=== PATIENT | female | born 1950 | race Caucasian/White ===

== ENCOUNTER 2017-11-17 09:21 | Inpatient (IN) ==
--- NOTE | 2017-11-17 09:34 | Emergency Department Report ---
Neuro HPI - General Stated Complaint: drowsy,acting weird Time Seen by Provider: 11/17/17 09:33 Source: patient Mode of arrival: ambulatory Limitations: altered mental status - History of Present Illness HPI Narrative: Patient is a 67-year-old female presents emergency room for evaluation of confusion, difficulty waking. Patient went to bed normally last night, had difficulty waking this morning, and then appear to be confused did not know day or date. Patient was brought to the ER on arrival patient no she's in the [facility] emergency room, now states that she's been having intermittent chest pain none currently. On review of systems with nurse 2 minutes prior patient had denied any chest pain. Onset (ago): day(s) Time Estimated: Yes (bedtime last night) Timing confirmed by: spouse - Related Data Home Medications: Home Medications Medication Instructions Recorded Confirmed Meloxicam 7.5 mg PO BID #0 01/31/10 11/17/17 Simvastatin 20 mg PO DAILY #0 03/17/13 11/17/17 Aspirin [Aspirin EC] 81 mg PO DAILY 11/17/17 11/17/17 Baclofen [Lioresal] 10 mg PO DAILY PRN 11/17/17 11/17/17 Cetirizine HCl [Zyrtec] 10 mg PO DAILY 11/17/17 11/17/17 Lisinopril/Hctz 20/25 [Prinzide 1 tab PO DAILY 11/17/17 11/17/17 20/25] Trazodone [Desyrel] 50 mg PO HS 11/17/17 11/17/17 Allergies/Adverse Reactions: Allergies Allergy/AdvReac Type Severity Reaction Status Date / Time cortisone Allergy Mild RED Verified 11/17/17 09:38 neomycin Allergy Mild RED Verified 11/17/17 09:38 Sulfa (Sulfonamide Allergy Mild ITCH Verified 11/17/17 09:38 Antibiotics) Review of Systems Constitutional: Reports: weakness. Denies: fever, chills Eyes: Denies: eye pain, eye discharge ENT: Denies: throat pain, dental pain Cardiovascular: Reports: chest pain. Denies: palpitations, dyspnea on exertion Respiratory: Denies: cough, dyspnea, wheezes Gastrointestinal: Denies: abdominal pain, nausea, vomiting Genitourinary: Denies: urgency, dysuria Musculoskeletal: Denies: back pain Neurological: Denies: headache, weakness, numbness, paresthesias, confusion Endocrine: Denies: fatigue Hematological/Lymphatic: Denies: easy bleeding PFSH Patient Stated Medical History Cerebrovascular Accident Yes Hypertension Yes Chronic Obstructive Pulmonary Yes Disease (COPD) Hx Incontinence Yes Other Musculoskeletal Yes: takes muscle relaxer "to help me get up and down" Other Yes: pt poor historian, collecton incomplete Medical History Updates: Prior CVA - Social History Smoking status: Current every day smoker Substance use type: does not use Alcohol intake frequency: does not drink Physical Exam - Limitations Limitations: no limitations - General General appearance: alert, in no apparent distress - Head Head exam: normocephalic - ENT ENT exam: Present: normal oropharynx - Neck Neck exam: Present: full ROM - Chest Chest inspection: Present: symmetric chest wall rise. Absent: tenderness - Respiratory Respiratory exam: Present: normal lung sounds bilaterally, wheezes (left upper) . Absent: respiratory distress, accessory muscle use, prolonged expiratory phase, crackles - Cardiovascular Cardiovascular exam: Present: regular rate, normal rhythm, normal heart sounds - Abdominal Exam Abdominal exam: Present: soft, normal bowel sounds. Absent: distention, tenderness - Skin Skin exam: Present: warm, dry - Neurological Exam Neurological exam: Present: alert, other - Expanded Neurological Exam Speech: Present: fluid speech Cranial nerves: Normal: EOM function (II, III, IV, ), facial sensation (V), facial palsy (VII), gag reflex (IX), spinal accessory function (XI), tongue deviation (XII) Motor strength - LUE: 5/5 Motor strength - RUE: 5/5 Motor strength - LLE: 5/5 Motor strength - RLE: 5/5 Sensory exam upper extremity: Normal: light touch Sensory exam lower extremity: Normal: light touch DTR: 2+: biceps (L), biceps (R), patellar (L), patellar (R) Coma scale eye opening: spontaneous Coma scale motor response: obeys commands Coma scale verbal response: confused Coma scale total: 14 - Psychiatric Psychiatric exam: Present: normal affect, normal mood Course Vital Signs Temperature 98.1 F 11/17/17 09:35 Pulse Rate 62 11/17/17 09:35 Respiratory Rate 16 11/17/17 09:35 Blood Pressure 120/64 11/17/17 09:35 Pulse Oximetry 97 11/17/17 09:35 Temperature 98.1 F 11/17/17 09:35 Pulse Rate 57 L 11/17/17 10:45 Respiratory Rate 20 11/17/17 10:45 Blood Pressure 136/75 11/17/17 10:45 Pulse Oximetry 96 11/17/17 10:45 Neuro Symptoms/Deficit - Differential Diagnosis Likely: subarachnoid hemorrhage, peripheral neuropathy, cerebrovascular accident , transient cerebral ischemia - Medical Records Attestation: I reviewed the patient's medical records. - Lab Data Attestation: I reviewed the patient's lab results. Result diagrams: 11/17/17 10:17 11/17/17 10:17 Lab Results 11/17/17 11/17/17 11/17/17 Range/Units 10:17 10: 10:17 WBC 6.7 (4.5-11.0) T/MM3 RBC 4.84 (4.00-5.20) M/MM3 Hgb 15.8 (12-16) GM/DL Hct 45.4 (36-46) % MCV 93.8 (80-100) UM3 MCH 32.6 (26-34) UUG MCHC 34.8 (31-37) GM/DL RDW Std Deviation 42.5 (36.9-50.2) FL Plt Count 174 (130-400) T/MM3 MPV 11.0 (9.4-12.4) UM3 Immature Gran % (Auto) Not performed Neut % (Auto) 68.0 H (33-66) % Lymph % (Auto) 20.7 L (23-45) % [place] % (Auto) 9.8 H (0-9.0) % Eos % (Auto) 0.9 (0-4) % Baso % (Auto) 0.6 (0-2) % Neut # (Auto) 4.5 (1.8-7.7) T/MM3 Lymph # (Auto) 1.4 (1-4.8) T/MM3 [place] # (Auto) 0.7 (0-0.8) T/MM3 Eos # (Auto) 0.1 (0-0.5) T/MM3 Baso # (Auto) 0.0 (0-0.2) T/MM3 Abs Immat Gran (auto) Not performed Turbidity < 20 (0-20) Sodium 142 (134-144) MEQ/L Potassium 3.8 (3.6-5) MEQ/L Chloride 106 (98-107) MEQ/L Carbon Dioxide 28 (22-30) MEQ/L Anion Gap 8 (5-15) MEQ/L BUN 22.0 H (7-17) MG/DL Creatinine 0.8 (0.7-1.2) MG/DL GFR Calculation 72 BUN/Creatinine Ratio 28 H (6-26) RATIO Glucose 95 (65-110) MG/DL Calculated Osmolality 276 (261-280) MOSM/KG Calcium 9.5 (8.4-10.2) MG/DL Total Bilirubin 0.80 (0.20-1.30) MG/DL Icterus Index < 2 (0-7) AST 20 (14-36) U/L ALT 22 (9-52) U/L Alkaline Phosphatase 69 (38-126) U/L Ammonia < 9 L (9-33) UMOL/L Troponin I < 0.012 (0-0.12) ng/ml Total Protein 7.2 (6.3-8.2) G/DL Albumin 4.0 (3.5-5.0) G/DL Globulin 3.2 (2.4-3.6) G/DL Albumin/Globulin Ratio 1.3 (1.1-2.2) RATIO Specimen Hemolysis < 15 (0-25) Ur Collection Type Urine, void-cc/notcc Urine Color Yellow (YELLOW) Urine Clarity Clear Urine pH 5.5 (5.0-8.0) Ur Specific [place] >=1.030 H (1.015-1.025) Urine Protein Negative (NEGATIVE) Urine Glucose (UA) Negative (NEGATIVE) Urine Ketones Negative (NEGATIVE) Urine Occult Blood Negative (NEGATIVE) Urine Nitrate Negative (NEGATIVE) Urine Bilirubin Negative (NEGATIVE) Urine Urobilinogen 1.0 (NORMAL) EU/DL Ur Leukocyte Esterase Negative (NEGATIVE) Urinalysis Comment Microscopic not ind. - Radiology Data Attestation: I reviewed the patient's radiology results. Disposition Clinical Impression: Symptomatic bradycardia Altered mental status Qualifiers: Altered mental status type: unspecified Qualified Code(s): R41.82 - Altered mental status, unspecified Disposition: 02 To [place] [facility] [place]: Stable Prescriptions: No Action Simvastatin 20 mg PO DAILY #0 Baclofen [Lioresal] 10 mg PO DAILY PRN PRN Reason: Prn Orders Trazodone [Desyrel] 50 mg PO HS Aspirin [Aspirin EC] 81 mg PO DAILY Cetirizine HCl [Zyrtec] 10 mg PO DAILY Meloxicam 7.5 mg PO BID #0 Lisinopril/Hctz 20/25 [Prinzide 20/25] 1 tab PO DAILY Referrals: Júnior Solano MD [Family Provider] - Time of Disposition: 11:24 - Seen By: physician
--- OUTSIDE RECORDS SUMMARY | 2017-11-17 09:47 | External Medical Summary | Referral Summary ---
:1950 Author Organization [facility], [address] [place] [address] Care Team Providers Name Role Phone Júnior Solano Primary Care Physician Encounter VC Date(s): 02/21/16 - 02/21/16 [facility] [address] [place] [phone] Discharge Diagnosis: Benign essential hypertension Discharge Diagnosis: Hand eczema Discharge Diagnosis: Osteoarthritis Discharge Diagnosis: Hyperlipidemia Discharge Diagnosis: Status post CVA Discharge Disposition: 01-Home or Self Care Attending Physician: Júnior Solano MD Admitting Physician: Júnior Solano MD Vital Signs Most recent to oldest [Reference Range]: 1 Temperature Tympanic [36.6-38.1 degC] 36.7 degC (02/21/16 10:07 AM) Peripheral Pulse Rate [60-100 bpm] 68 bpm (02/21/16 10:07 AM) Respiratory Rate [14-20 br/min] 18 br/min (02/21/16 10:07 AM) Blood Pressure [90-140/60-90 mmHg] 108/64 mmHg (02/21/16 10:07 AM) Problem List Condition Effective Dates Status Health Status Informant Adenomatous colon polyp(Confirmed)1 Active Allergy(Confirmed) Active Allergic rhinitis(Confirmed) Active Asthma(Confirmed) Active Benign essential hypertension Active (disorder)(Confirmed) Benign neoplasm of colon Active (disorder)(Confirmed) Bronchitis(Confirmed) Active CVA (cerebral infarction)(Confirmed) Active Dysphagia(Confirmed) Active History of varicella(Confirmed) Active Hearing loss(Confirmed) Active Hematochezia(Confirmed)2001 Active Hypertension(Confirmed) Active Ear infection(Confirmed) Active Malaise and fatigue(Confirmed) Active Asthma without status asthmaticus Active (disorder)(Confirmed) Hyperlipidemia(Confirmed) Active Osteoarthritis(Confirmed) Active Overweight(Confirmed) Active Venous insufficiency(Confirmed) Active Pneumonia(Confirmed) Active Sinus infection(Confirmed) Active TIA (transient ischemic Active attack)(Confirmed) 1 colonoscopy, tubular adenoma, repeat in 5 years [id number] adenoma Allergies, Adverse Reactions, Alerts Substance Reaction Severity Status neomycin Active sulfa drugs Active sulfanilamide topical Itching Active Medications aspirin 325 mg oral tablet 1 tabs, Oral, Daily, # 90 tabs, 0 Refill(s) Start Date: 05/13/14 Status: Orderedchlorzoxazone 500 mg oral tablet See Instructions, TAKE ONE TABLET BY MOUTH ONCE DAILY AT BEDTIME NEEDED FOR PAIN, # 30 tabs, 2 Refill(s), eRx: [facility], TAKE ONE TABLET BY MOUTH ONCE DAILY AT BEDTIME NEEDED FOR PAIN Start Date: 12/14/15 Status: OrderedClaritin 10 mg oral tablet 1 tabs, Oral, Daily, as needed for allergy symptoms, # 90 tabs, 0 Refill(s) Start Date: 05/13/14 Status: OrderedEpiPen 2-Davi mg, IntraMuscular, Once, as needed for anaphylaxis, 0 Refill(s) Start Date: 05/13/14 Status: OrderedFlonase 50 mcg/inh nasal spray 1 sprays, Nasal, BID, Seasonal Allergy Symptoms, # 16 g, 0 Refill(s) Start Date: 05/13/14 Status: Orderedfluocinolone 0.01% topical oil 0 Refill(s) Start Date: 11/03/14 Status: OrderedFluvirin [id number] 0 Refill(s) Start Date: 11/03/14 Status: Orderedibuprofen 200 mg oral tablet 3 tabs, Oral, BID, as needed for arthritis, with food, 0 Refill(s) Start Date: 05/13/14 Status: Orderedlisinopril-hydrochlorothiazide 20 mg-25 mg oral tablet See Instructions, TAKE ONE TABLET BY MOUTH ONCE DAILY, # 30 tabs, 2 Refill(s), eRx: [facility], TAKE ONE TABLET BY MOUTH ONCE DAILY Start Date: 02/12/16 Status: Orderedmeloxicam 7.5 mg oral tablet See Instructions, TAKE ONE TABLET BY MOUTH TWICE DAILY, # 60 tabs, 2 Refill(s), eRx: [facility], TAKE ONE TABLET BY MOUTH TWICE DAILY Start Date: 02/12/16 Status: Orderedsimvastatin 20 mg oral tablet See Instructions, TAKE ONE TABLET BY MOUTH ONCE DAILY IN THE EVENING, # 90 tabs , 1 Refill(s), eRx: [facility], TAKE ONE TABLET BY MOUTH ONCE DAILY IN THE EVENING Start Date: 01/12/16 Status: OrderedtraZODone 50 mg oral tablet See Instructions, TAKE ONE TABLET BY MOUTH AT BEDTIME, # 30 tabs, 2 Refill(s), eRx: [facility], TAKE ONE TABLET BY MOUTH AT BEDTIME Start Date: 01/12/16 Status: Orderedtriamcinolone 0.5% topical cream 1 lyssa, Topical, BID, # 15 g, 0 Refill(s), Pharmacy: [facility] Start Date: 02/21/16 Status: Ordered Results No data available for this section Immunizations Vaccine Date Refusal Reason tetanus/diphth/pertuss (Tdap) adult/adol 01/24/11 influenza virus vaccine, inactivated 07/14/15 influenza virus vaccine, inactivated 08/08/14 influenza virus vaccine, inactivated 06/21/13 pneumococcal 13-valent conjugate vaccine 02/21/16 pneumococcal 23-polyvalent vaccine 06/21/13 zoster vaccine live 01/20/13 Procedures Procedure Date Related Diagnosis Body Site Colonoscope1 03/18/13 DEXA - Dual energy X-ray photon absorptiometry 02/02/13 Mammogram 02/02/13 Colonoscopy2 01/31/10 Colonoscopy3 08/16/02 Sigmoidoscopy4 07/30/02 Appendectomy 02/22/94 Hysterectomy 02/22/94 Adenoidectomy 1956 Tonsillectomy 1956 Dilation and curettage 1Revealed a single adenomatous colon polyp.no sign of cancer,diverticula or other abnormalities.2HX adenomatous colon [id number] -tubular adenoma Social History Social History Type Response Smoking Status Current every day smoker; Type: Cigarettes; Tobacco use per day : Pack Assessment and Plan Extracted from: Title: Office Visit Note Author: Júnior Solano MD Date: 02/21/16 Assessment/Plan 1.Benign essential hypertension Blood pressures well-controlled. Medications and treatments reviewed no changes are recommended. We did give Prevnar today. Recheck in 6 months. Call with problems or concerns. Ordered: pneumococcal 13-valent conjugate vaccine, 0.5 mL, IntraMuscular, Once, First Dose: 02/21/16 11:00:00 CDT, Stop Date: 02/21/16 11:00:00 CDT, Form: Injection Office Visit Level 4 Est 67975 3.Hyperlipidemia Chronic stable current medications reviewed no changes in treatment plan recommended. Recent laboratory studies reviewed overall lipid status is stable. Ordered: Office Visit Level 4 Est 06452 4.Osteoarthritis Chronic stable no change in current treatment recommended. Ordered: Office Visit Level 4 Est 94281 5.Status post CVA Chronic stable no signs of TIA or other similar symptoms. Call with problems or concerns. Recheck in 6 months. Ordered: Office Visit Level 4 Est 92460 Orders: triamcinolone topical, 1 lyssa, Topical, BID, # 15 g, 0 Refill(s), Pharmacy: [id number] Eczema She has a spot on her side that looks inflamed and irritatedI've recommended some triamcinolone cream twice a day untilclear if not improving she'll let us now.
--- OUTSIDE RECORDS SUMMARY | 2017-11-17 09:47 | External Medical Summary | Referral Summary ---
:1950 Author Organization [facility], [address] [place] [address] Care Team Providers Name Role Phone Júnior Solano Primary Care Physician Encounter VC Date(s): 02/13/15 - 02/13/15 [facility] [address] [place] [phone] [place] Discharge Diagnosis: Benign essential hypertension Discharge Diagnosis: Allergic rhinitis Discharge Diagnosis: Asthma without status asthmaticus Discharge Diagnosis: Osteoarthritis Discharge Disposition: 01-Home or Self Care Attending Physician: Júnior Solano MD Admitting Physician: Júnior Solano MD Vital Signs Most recent to oldest [Reference Range]: 1 Temperature Tympanic [36.6-38.1 degC] 36.1 degC *LOW* (02/13/15 10:07 AM) Peripheral Pulse Rate [60-100 bpm] 80 bpm (02/13/15 10:07 AM) Respiratory Rate [14-20 br/min] 18 br/min (02/13/15 10:07 AM) Blood Pressure [90-140/60-90 mmHg] 102/68 mmHg (02/13/15 10:07 AM) Problem List Condition Effective Dates Status Health Status Informant Adenomatous colon polyp(Confirmed)1 Active Allergy(Confirmed) Active Allergic rhinitis(Confirmed) Active Asthma(Confirmed) Active Asthma without status asthmaticus Active (disorder)(Confirmed) Benign essential hypertension Active (disorder)(Confirmed) Benign neoplasm of colon Active (disorder)(Confirmed) Bronchitis(Confirmed) Active CVA (cerebral infarction)(Confirmed) Active Dysphagia(Confirmed) Active History of varicella(Confirmed) Active Hearing loss(Confirmed) Active Hematochezia(Confirmed)2 2001 Active Hyperlipidemia(Confirmed) Active Hypertension(Confirmed) Active Ear infection(Confirmed) Active Malaise and fatigue(Confirmed) Active Osteoarthritis(Confirmed) Active Overweight(Confirmed) Active Venous insufficiency(Confirmed) Active Pneumonia(Confirmed) Active Sinus infection(Confirmed) Active TIA (transient ischemic Active attack)(Confirmed) 1 colonoscopy, tubular adenoma, repeat in 5 years [id number] adenoma Allergies, Adverse Reactions, Alerts Substance Reaction Severity Status neomycin Active sulfa drugs Active sulfanilamide topical Itching Active Medications albuterol CFC free 90 mcg/inh inhalation aerosol 2 puffs, Inhalation, q4hr, as needed for wheezing, # 18 g, 0 Refill(s) Start Date: 05/13/14 Status: Orderedaspirin 325 mg oral tablet 1 tabs, Oral, Daily, # 90 tabs, 0 Refill(s) Start Date: 05/13/14 Status: OrderedClaritin 10 mg oral tablet 1 [...] 0 Refill(s) Start Date: 11/03/14 Status: OrderedFluvirin [id number] 0 Refill(s) Start Date: 11/03/14 Status: Orderedibuprofen 200 mg oral tablet 3 tabs, Oral, BID, as needed for arthritis, with food, 0 Refill(s) Start Date: 05/13/14 Status: Orderedlisinopril-hydrochlorothiazide 20 mg-25 mg oral tablet See Instructions, TAKE ONE TABLET BY MOUTH ONCE DAILY, # 30 tabs, 2 Refill(s), eRx: [facility], TAKE ONE TABLET BY MOUTH ONCE DAILY Start Date: 06/14/15 Status: Orderedmeloxicam 7.5 mg oral tablet See Instructions, TAKE ONE TABLET BY MOUTH TWICE DAILY, # 60 tabs, eRx: [facility], TAKEONE TABLET BY MOUTH TWICE DAILY Start Date: 07/14/15 Status: OrderedParafon Forte DSC 500 mg oral tablet See Instructions, 1 tabs Oral Daily,PRN:as needed for pain,Instr:Take at bedtime as needed, # 30 tabs, 2 Refill(s), eRx: [facility], 1 tabs Oral Daily,PRN:as needed for pain,Instr:Take at bedtime as needed Start Date: 06/14/15 Status: Orderedsimvastatin 20 mg oral tablet See Instructions, TAKE ONE TABLET BY MOUTH ONCE DAILY IN THE EVENING, # 90 tabs , eRx: [facility], TAKE ONE TABLET BY MOUTH ONCE DAILY IN THE EVENING Start Date: 07/14/15 Status: OrderedtraZODone 50 mg oral tablet See Instructions, TAKE ONE TABLET BY MOUTH AT BEDTIME, # 30 tabs, 2 Refill(s), eRx: [facility], TAKE ONE TABLET BY MOUTH AT BEDTIME Start Date: 06/14/15 Status: Ordered Results No data available for this section Immunizations Vaccine Date Refusal Reason tetanus/diphth/pertuss (Tdap) adult/adol 01/24/11 influenza virus vaccine, inactivated 07/14/15 influenza virus vaccine, inactivated 08/08/14 influenza virus vaccine, inactivated 06/21/13 pneumococcal 23-polyvalent vaccine 06/21/13 zoster vaccine live 01/20/13 Procedures Procedure Date Related Diagnosis Body Site Colonoscope1 03/18/13 DEXA - Dual energy X-ray photon absorptiometry 02/02/13 Mammogram 02/02/13 Colonoscopy2 01/31/10 Colonoscopy3 08/16/02 Sigmoidoscopy4 07/30/02 Appendectomy 02/22/94 Hysterectomy 02/22/94 Adenoidectomy 1956 Tonsillectomy 1956 Dilation and curettage 1Revealed a single adenomatous colon polyp.no sign of cancer,diverticula or other abnormalities.2HX adenomatous colon [id number] [id number] -tubular adenoma Social History Social History Type Response Smoking Status Current every day smoker; Type: Cigarettes; Tobacco use per day : Pack Assessment and Plan Extracted from: Title: Ambulatory Patient Education Author: Júnior Solano MD Date: 02/13 Family Medicine Hypertension Hypertension is another name for high blood pressure. High blood pressure may mean that your heart needs to work harder to pump blood. Blood pressure consists of two numbers, which includes a higher number over a lower number ( example: 110/72). HOME CARE Make lifestyle changes as told by your doctor. This may include weight loss and exercise. Take your blood pressure medicine every day. Limit how much salt you use. Stop smoking if you smoke. Do not use drugs. Talk to your doctor if you are using decongestants or control pills. These medicines might make blood pressure higher. Females should not drink more than 1 alcoholic drink per day. Males should not drink more than 2 alcoholic drinks per day. See your doctor as told. GET HELP RIGHT AWAY IF: You have a blood pressure reading with a top number of 180 or higher. You get a very bad headache. You get blurred or changing vision. You feel confused. You feel weak, numb, or faint. You get chest or belly (abdominal ) pain. You throw up (vomit ). You cannot breathe very well. MAKE SURE YOU: Understand these instructions. Will watch your condition. Will get help right away if you are not doing well or get worse. Document Released: 03/10/2009 Document Revised: 12/14/2012 Document Reviewed: 03/10/2009 [facility] Patient Information 2014 [employer]. No follow up information was provided. Extracted from: Title: Office Visit Note Author: Júnior Solano MD Date: 02/13/15 Assessment/Plan Allergic rhinitis Increase Flonase to 2 times daily 1 puff each nostril. Ordered: Office Visit Level 4 Est 90332 Asthma without status asthmaticus Overall stable no change in current treatment. Follow-up in 6 months. Ordered: Office Visit Level 4 Est 59116 Benign essential hypertension The pressures adequately controlled no change in current treatment recommended. Follow-up in 6 months. Recent laboratory studies report card reviewed and provided. Ordered: Office Visit Level 4 Est 96551 Osteoarthritis Stable no change in current treatment. Ordered: Office Visit Level 4 Est 26810 Orders: BD Bone Density DEXA Axial Skeleton Hyperlipidemia Continue simvastatin at its current dosage. Recent laboratory studies reviewed and provided.
--- OUTSIDE RECORDS SUMMARY | 2017-11-17 09:47 | External Medical Summary | Referral Summary ---
:1950 Author Organization [facility], [address] [place] [address] Care Team Providers Name Role Phone Júnior Solano Primary Care Physician Encounter [facility] Date(s): 02/13/15 - 02/13/15 [facility] [address] [place] [phone] [place] Discharge Diagnosis: [...] colonoscopy, tubular adenoma, repeat in 5 years [id number] adenoma Allergies, Adverse Reactions, Alerts Substance Reaction [...] 0 Refill(s) Start Date: 11/03/14 Status: OrderedFluvirin [id number] 0 Refill(s) Start Date: 11/03/14 Status: Orderedibuprofen 200 mg oral tablet 3 tabs, Oral, BID, as needed for arthritis, with food, 0 Refill(s) Start Date: 05/13/14 Status: Orderedlisinopril-hydrochlorothiazide 20 mg-25 mg oral tablet See Instructions, TAKE ONE TABLET BY MOUTH ONCE DAILY, # 30 tabs, 2 Refill(s), eRx: [facility], TAKE ONE TABLET BY MOUTH ONCE DAILY Start Date: 06/14/15 Status: Orderedmeloxicam 7.5 mg oral tablet See Instructions, TAKE ONE TABLET BY MOUTH TWICE DAILY, # 60 tabs, eRx: [facility], TAKEONE TABLET BY MOUTH TWICE DAILY Start Date: 07/14/15 Status: OrderedParafon Forte DSC 500 mg oral tablet See Instructions, 1 tabs Oral Daily,PRN:as needed for pain,Instr:Take at bedtime as needed, # 30 tabs, 2 Refill(s), eRx: [facility], 1 tabs Oral Daily,PRN:as needed for pain,Instr:Take at bedtime as needed Start Date: 06/14/15 Status: Orderedsimvastatin 20 mg oral tablet See Instructions, TAKE ONE TABLET BY MOUTH ONCE DAILY IN THE EVENING, # 90 tabs , eRx: [facility], TAKE ONE TABLET BY MOUTH ONCE DAILY IN THE EVENING Start Date: 07/14/15 Status: OrderedtraZODone 50 mg oral tablet See Instructions, TAKE ONE TABLET BY MOUTH AT BEDTIME, # 30 tabs, 2 Refill(s), eRx: [facility], TAKE ONE TABLET BY [...] of cancer,diverticula or other abnormalities.2HX adenomatous colon [id number] gywry0cjhecsrttdlwb -tubular adenoma Social History Social History Type [...] 03/10/2009 Document Revised: 12/14/2012 Document Reviewed: 03/10/2009 [facility] Patient Information 2014 [email or web address]. No follow up information was provided. Extracted from: Title: Office Visit Note Author: Júnior Solano MD Date: 02/13/15 Assessment/Plan Allergic rhinitis Increase Flonase to 2 times daily 1 puff each nostril. Ordered: Office Visit Level 4 Est 40313 Asthma without status asthmaticus Overall stable no change in current treatment. Follow-up in 6 months. Ordered: Office Visit Level 4 Est 94078 Benign essential hypertension The pressures adequately controlled no change in current treatment recommended. Follow-up in 6 months. Recent laboratory studies report card reviewed and provided. Ordered: Office Visit Level 4 Est 52698 Osteoarthritis Stable no change in current treatment. Ordered: Office Visit Level 4 Est 82886 Orders: BD Bone Density DEXA Axial Skeleton Hyperlipidemia Continue simvastatin at its current dosage. Recent laboratory studies reviewed and provided.
--- OUTSIDE RECORDS SUMMARY | 2017-11-17 09:47 | External Medical Summary | Referral Summary ---
:1950 Author Care Team Providers Name Role Phone Júnior Solano Primary Care Physician Encounter [facility] [id number] Date(s): 11/03/14 - 11/03/14 [facility], [place] [address] [place], [place] [address] Discharge Diagnosis: Obstructive sleep apnea, adult Discharge Disposition: Home or Self Care Attending Physician: Nickolas Armando MD Admitting Physician: Nickolas Armando MD Referring Physician: Júnior Solano MD Vital Signs Most recent to oldest [Reference Range]: 1 Peripheral Pulse Rate [60-100 bpm] 84 bpm (11/03/14 1:27 PM) Blood Pressure [90-140/60-90 mmHg] 118/70 mmHg (11/03/14 1:27 PM) Most recent to oldest [Reference Range]: 1 SpO2 96 % (11/03/14 1:27 PM) Problem List Condition Effective Dates Status Health [...] colonoscopy, tubular adenoma, repeat in 5 years [id number] adenoma Allergies, Adverse Reactions, Alerts Substance Reaction [...] 0 Refill(s) Start Date: 11/03/14 Status: OrderedFluvirin 0807-3711 0 Refill(s) Start Date: 11/03/14 Status: Orderedibuprofen 200 mg oral tablet 3 tabs, Oral, BID, as needed for arthritis, with food, 0 Refill(s) Special Instructions: with food Start Date: 05/13/14 Status: Orderedlisinopril-hydrochlorothiazide 20 mg-25 mg oral tablet 1 tabs, Oral, Daily, # 30 tabs, 3 Refill(s), Pharmacy: [facility] Start Date: 10/14/14 Status: OrderedMobic 7.5 mg oral tablet See Instructions, TAKE 1 TABLET BY MOUTH TWICE A DAY., # 60 unknown unit, 2 Refill(s), eRx: [id number], TAKE 1 TABLET BY MOUTH TWICE A DAY. Special Instructions: TAKE 1 TABLET BY MOUTH TWICE A DAY. Start Date: 10/03/14 Status: OrderedParafon Forte DSC 500 mg oral tablet 1 tabs, Oral, Daily, as needed for pain, Take at bedtime as needed, # 30 tabs, 1 Refill(s), Pharmacy: [facility], 1 tabs Oral Daily,PRN:as needed for pain,Instr:Take at bedtime as needed Special Instructions: Take at bedtime as needed Start Date: 10/14/14 Stop Date: 12/17/14 Status: Orderedsimvastatin 20 mg oral tablet See Instructions, TAKE 1 TABLET BY MOUTH EVERY EVENING, # 90 tabs, 1 Refill(s), ESTHER, eRx: [facility] [id number], TAKE 1 TABLET BY MOUTH EVERY EVENING Special Instructions: TAKE 1 TABLET BY MOUTH EVERY EVENING Start Date: 08/03/14 Status: OrderedtraZODone 50 mg oral tablet See Instructions, TAKE 1 TABLET (50MG) BY ORAL ROUTE EVERY DAY AT BEDTIME, # 30 unknown unit, 1 Refill(s), eRx: [id number], TAKE 1 TABLET (50MG ) BY ORAL ROUTE EVERY DAY AT BEDTIME Special Instructions: TAKE 1 TABLET (50MG) BY ORAL ROUTE EVERY DAY AT BEDTIME Start Date: 09/26/14 Status: Ordered Results No data available for this section Immunizations Vaccine Date Refusal Reason tetanus/diphth/pertuss (Tdap) adult/adol 01/24/11 influenza virus vaccine, inactivated 08/08/14 influenza virus vaccine, inactivated 06/21/13 pneumococcal 23-polyvalent vaccine 06/21/13 zoster vaccine live 01/20/13 Procedures Procedure Date Related Diagnosis Body Site Colonoscope1 03/18/13 DEXA - Dual energy X-ray photon absorptiometry 02/02/13 Colonoscopy2 01/31/10 Colonoscopy3 08/16/02 Sigmoidoscopy4 07/30/02 Appendectomy 02/22/94 Hysterectomy 02/22/94 Adenoidectomy 1956 Tonsillectomy 1956 Dilation and curettage 1Revealed a single adenomatous colon polyp.no sign of cancer,diverticula or other abnormalities.2HX adenomatous colon bqbjkk4Qrwthnrpzmp aheaf3nihrnqwmfejjd -tubular adenoma Social History Social History Type Response Smoking Status Current every day smoker; Type: Cigarettes; Tobacco use per day : Pack Assessment and Plan Extracted from: Title: Ambulatory Patient Education Author: Nickolas Armando MD Date: 11/03/14 Family Medicine Sleep Apnea Sleep apnea is disorder that affects a person's sleep. A person with sleep apnea has abnormal pauses in their breathing when they sleep. It is hard for them to get a good sleep. This makes a person tire d during the day. It also can lead to other physical problems. There are three types of sleep apnea. One type is when breathing stops for a short time because your airway is blocked (obstructive sleep a pnea ). Another type is when the brain sometimes fails to give the normal signal to breathe to the muscles that control your breathing (central sleep apnea ). The third type is a combination of the other two types. HOME CARE Do not sleep on your back. Try to sleep on your side. Take all medicine as told by your doctor. Avoid alcohol, calming medicines (sedatives ), and depressant drugs. Try to lose weight if you are overweight. Talk to your doctor about a healthy weight goal. Your doctor may have you use a device that helps to open your airway. It can help you get the air that you need. It is called a positive airway pressure (PAP ) device. There are three types of PAP devices: Continuous positive airway pressure (CPAP) device. Nasal expiratory positive airway pressure (EPAP) device. Bilevel positive airway pressure (BPAP) device. MAKE SURE YOU: Understand these instructions. Will watch your condition. Will get help right away if you are not doing well or get worse. Document Released: 07/01/2009 Document Revised: 09/08/2013 Document Reviewed: 01/23/2013 [facility] Patient Information 2014 [employer]. No follow up information was provided. Extracted from: Title: Office Visit Note Author: Nickolas Armando MD Date: 11/03/14 Assessment/Plan Obstructive sleep apnea, adult Impression: Evaluation for sleep apnea with a sleep study is recommended. Indications/risk factors include snoring, excessive daytime sleepiness, body mass index over 35, hypertension, age over 50. Plan: Discussion with the patient about the pathophysiology of sleep apnea, the nature of overnight sleep studies, both attended in-home studies, and about CPAP treatment. She does not want to do an a ttended study. She is worried about not being able to smoke at bedtime, and she does not think her would approve. She may not sleep well and her rooms, which have no TV running. The upshot [facility] is that we decided to go ahead with a home study. That will be scheduled. The patient will return after the study to review the results, and further recommendations to Dr. Solano will follow at that point. Referrals to Other Providers Referred by: Nickolas Armando MD
--- OUTSIDE RECORDS SUMMARY | 2017-11-17 09:47 | External Medical Summary | Referral Summary ---
:1950 Author Organization [facility], [address] [place] [address] Care Team Providers Name Role Phone Júnior Solano Primary Care Physician Encounter [facility] Date(s): 02/13/15 - 02/13/15 [facility] [address] [place] [phone] [place] Discharge Diagnosis: [...] colonoscopy, tubular adenoma, repeat in 5 years [id number] adenoma Allergies, Adverse Reactions, Alerts Substance Reaction [...] 0 Refill(s) Start Date: 11/03/14 Status: OrderedFluvirin [id number] 0 Refill(s) Start Date: 11/03/14 Status: Orderedibuprofen 200 mg oral tablet 3 tabs, Oral, BID, as needed for arthritis, with food, 0 Refill(s) Start Date: 05/13/14 Status: Orderedlisinopril-hydrochlorothiazide 20 mg-25 mg oral tablet See Instructions, TAKE ONE TABLET BY MOUTH ONCE DAILY, # 30 tabs, 2 Refill(s), eRx: [facility], TAKE ONE TABLET BY MOUTH ONCE DAILY Start Date: 06/14/15 Status: Orderedmeloxicam 7.5 mg oral tablet See Instructions, TAKE ONE TABLET BY MOUTH TWICE DAILY, # 60 tabs, eRx: [facility], TAKEONE TABLET BY MOUTH TWICE [...] of cancer,diverticula or other abnormalities.2HX adenomatous colon [id number] bmmma8kvoezwaohyjdm -tubular adenoma Social History Social History Type [...] 03/10/2009 Document Revised: 12/14/2012 Document Reviewed: 03/10/2009 [facility] Patient Information 2014 [employer]. No follow up information was provided. Extracted from: Title: Office Visit Note Author: Júnior Solano MD Date: 02/13/15 Assessment/Plan Allergic rhinitis Increase Flonase to 2 times daily 1 puff each nostril. Ordered: Office Visit Level 4 Est 94833 Asthma without status asthmaticus Overall stable no change in current treatment. Follow-up in 6 months. Ordered: Office Visit Level 4 Est 27650 Benign essential hypertension The pressures adequately controlled no change in current treatment recommended. Follow-up in 6 months. Recent laboratory studies report card reviewed and provided. Ordered: Office Visit Level 4 Est 25069 Osteoarthritis Stable no change in current treatment. Ordered: Office Visit Level 4 Est 83947 Orders: BD Bone Density DEXA Axial Skeleton Hyperlipidemia Continue simvastatin at its current dosage. Recent laboratory studies reviewed and provided.
--- OUTSIDE RECORDS SUMMARY | 2017-11-17 09:47 | External Medical Summary | Referral Summary ---
:1950 Author Organization [facility], [address] [place] [address] Care Team Providers Name Role Phone Júnior Solano Primary Care Physician Encounter [facility] Date(s): 02/13/15 - 02/13/15 [facility] [address] [place] [phone] [place] Discharge Diagnosis: [...] colonoscopy, tubular adenoma, repeat in 5 years [id number]-bmhruus adenoma Allergies, Adverse Reactions, Alerts Substance Reaction [...] 0 Refill(s) Start Date: 11/03/14 Status: OrderedFluvirin 7740-3466 0 Refill(s) Start Date: 11/03/14 Status: Orderedibuprofen 200 mg oral tablet 3 tabs, Oral, BID, as needed for arthritis, with food, 0 Refill(s) Start Date: 05/13/14 Status: Orderedlisinopril-hydrochlorothiazide 20 mg-25 mg oral tablet See Instructions, TAKE ONE TABLET BY MOUTH ONCE DAILY, # 30 tabs, 2 Refill(s), eRx: [facility], TAKE ONE TABLET BY MOUTH ONCE DAILY Start Date: 06/14/15 Status: Orderedmeloxicam 7.5 mg oral tablet See Instructions, TAKE ONE TABLET BY MOUTH TWICE DAILY, # 60 tabs, eRx: [facility], TAKEONE TABLET BY MOUTH TWICE DAILY Start Date: 07/14/15 Status: OrderedParafon Forte DSC 500 mg oral tablet See Instructions, 1 tabs Oral Daily,PRN:as needed for pain,Instr:Take at bedtime as needed, # 30 tabs, 2 Refill(s), eRx: [facility], 1 tabs Oral Daily,PRN:as needed for pain,Instr:Take at bedtime as needed Start Date: 06/14/15 Status: Orderedsimvastatin 20 mg oral tablet See Instructions, TAKE ONE TABLET BY MOUTH ONCE DAILY IN THE EVENING, # 90 tabs , eRx: [facility], TAKE ONE TABLET BY MOUTH ONCE DAILY IN THE EVENING Start Date: 07/14/15 Status: OrderedtraZODone 50 mg oral tablet See Instructions, TAKE ONE TABLET BY MOUTH AT BEDTIME, # 30 tabs, 2 Refill(s), eRx: [facility], TAKE ONE TABLET BY [...] of cancer,diverticula or other abnormalities.2HX adenomatous colon [id number] wkcqg0zouffcuybdgdw -tubular adenoma Social History Social History Type [...] 03/10/2009 Document Revised: 12/14/2012 Document Reviewed: 03/10/2009 [facility] Patient Information 2014 [employer]. No follow up information was provided. Extracted from: Title: Office Visit Note Author: Júnior Soalno MD Date: 02/13/15 Assessment/Plan Allergic rhinitis Increase Flonase to 2 times daily 1 puff each nostril. Ordered: Office Visit Level 4 Est 96028 Asthma without status asthmaticus Overall stable no change in current treatment. Follow-up in 6 months. Ordered: Office Visit Level 4 Est 18645 Benign essential hypertension The pressures adequately controlled no change in current treatment recommended. Follow-up in 6 months. Recent laboratory studies report card reviewed and provided. Ordered: Office Visit Level 4 Est 02444 Osteoarthritis Stable no change in current treatment. Ordered: Office Visit Level 4 Est 51996 Orders: BD Bone Density DEXA Axial Skeleton Hyperlipidemia Continue simvastatin at its current dosage. Recent laboratory studies reviewed and provided.
--- OUTSIDE RECORDS SUMMARY | 2017-11-17 09:47 | External Medical Summary | Referral Summary ---
:1950 Author Organization [facility], [address] [place] [address] Care Team Providers Name Role Phone Júnior Solano Primary Care Physician Encounter [facility] Date(s): 08/19/16 - 08/19/16 [facility] [address] [place] [phone] [place] Discharge Diagnosis: Benign essential hypertension Discharge Diagnosis: Hyperlipidemia Discharge Diagnosis: Asthma without status asthmaticus (disorder) Discharge Diagnosis: Osteoarthritis Discharge Diagnosis: Tobacco use Discharge Disposition: 01-Home or Self Care Attending Physician: Júnior Solano MD Admitting Physician: Júnior Solano MD Vital Signs Most recent to oldest [Reference Range]: 1 Temperature Tympanic [36.6-38.1 degC] 36.7 degC (08/19/16 10:07 AM) Peripheral Pulse Rate [60-100 bpm] 68 bpm (08/19/16 10:07 AM) Respiratory Rate [14-20 br/min] 24 br/min *HI* (08/19/16 10:07 AM) Blood Pressure [90-140/60-90 mmHg] 130/70 mmHg (08/19/16 10:07 AM) Problem List Condition Effective Dates Status Health Status Informant Adenomatous colon polyp(Confirmed)1 Active Allergy(Confirmed) Active Allergic rhinitis(Confirmed) Active Asthma(Confirmed) Active Benign essential hypertension Active (disorder)(Confirmed) Benign neoplasm of colon Active (disorder)(Confirmed) Bronchitis(Confirmed) Active CVA (cerebral infarction)(Confirmed) Active Dysphagia(Confirmed) Active History of varicella(Confirmed) Active Hearing loss(Confirmed) Active Hematochezia(Confirmed)2 2001 Active Hypertension(Confirmed) Active Ear infection(Confirmed) Active Malaise and fatigue(Confirmed) Active Asthma without status asthmaticus Active (disorder)(Confirmed) Hyperlipidemia(Confirmed) Active Osteoarthritis(Confirmed) Active Overweight(Confirmed) Active Venous insufficiency(Confirmed) Active Pneumonia(Confirmed) Active Sinus infection(Confirmed) Active TIA (transient ischemic Active attack)(Confirmed) 1 colonoscopy, tubular adenoma, repeat in 5 years [id number]-lwamlxb adenoma Allergies, Adverse Reactions, Alerts Substance Reaction Severity Status neomycin Active sulfa drugs Active sulfanilamide topical Itching Active Medications aspirin 325 mg oral tablet 1 tabs, Oral, Daily, # 90 tabs, 0 Refill(s) Start Date: 05/13/14 Status: Orderedchlorzoxazone 500 mg oral tablet See Instructions, TAKE ONE TABLET BY MOUTH ONCE DAILY AT BEDTIME NEEDED FOR PAIN, # 30 tabs, 2 Refill(s), eRx: [facility], TAKE ONE TABLET BY MOUTH ONCE DAILY AT BEDTIME NEEDED FOR PAIN Start Date: 06/11/16 Status: OrderedClaritin 10 mg oral tablet 1 [...] 0 Refill(s) Start Date: 11/03/14 Status: OrderedFluvirin 2750-8051 0 Refill(s) Start Date: 11/03/14 Status: Orderedibuprofen 200 mg oral tablet 3 tabs, Oral, BID, as needed for arthritis, with food, 0 Refill(s) Start Date: 05/13/14 Status: Orderedlisinopril-hydrochlorothiazide 20 mg-25 mg oral tablet See Instructions, TAKE ONE TABLET BY MOUTH ONCE DAILY, # 30 tabs, 4 Refill(s), eRx: [facility]28, TAKE ONE TABLET BY MOUTH ONCE DAILY Start Date: 08/08/16 Status: Orderedmeloxicam 7.5 mg oral tablet See Instructions, TAKE ONE TABLET BY MOUTH TWICE DAILY, # 60 tabs, 3 Refill(s), eRx: [facility], TAKE ONE TABLET BY MOUTH TWICE DAILY Start Date: 08/08/16 Status: Orderedsimvastatin 20 mg oral tablet See Instructions, TAKE ONE TABLET BY MOUTH ONCE DAILY IN THE EVENING, # 90 tabs , eRx: [facility], TAKE ONE TABLET BY MOUTH ONCE DAILY IN THE EVENING Start Date: 08/08/16 Status: OrderedtraZODone 50 mg oral tablet See Instructions, TAKE ONE TABLET BY MOUTH AT BEDTIME, # 30 tabs, 2 Refill(s), eRx: [facility], TAKE ONE TABLET BY MOUTH AT BEDTIME Start Date: 06/11/16 Status: Orderedtriamcinolone 0.5% topical cream 1 lyssa, Topical, BID, # 15 g, 0 Refill(s), Pharmacy: [facility]28 Start Date: 02/21/16 Status: Ordered Results No data available for this section Immunizations Vaccine Date Refusal Reason tetanus/diphth/pertuss (Tdap) adult/adol 01/24/11 influenza virus vaccine, inactivated 06/05/16 influenza virus vaccine, inactivated 07/14/15 influenza virus [...] of cancer,diverticula or other abnormalities.2HX adenomatous colon rifsxb1Tezhsnlzvkn aqczz2jwkpzzfkrwqrg -tubular adenoma Social History Social History Type Response Smoking Status Current every day smoker; Type: Cigarettes; Tobacco use per day : Pack Assessment and Plan Extracted from: Title: Office Visit Note Author: Júnior Solano MD Date: 08/19/16 Assessment/Plan 1.Asthma without status asthmaticus (disorder) Chronic relatively stable on current treatment no changes are recommended. I strongly encouraged her to stop smoking and offered assistance today. She is not interested. She is up-to-date on herpneumonia vaccinations and her flu shot. Ordered: Office Visit Level 4 Est 07199 2.Benign essential hypertension Chronic stable on current treatment. No changes are recommended. Report card reviewed and provided. Recent laboratory studies reviewedand stable. Ordered: Office Visit Level 4 Est 54647 3.Hyperlipidemia Recent lab shows good control oflipids no change in current treatment is recommended. Ordered: Office Visit Level 4 Est 70822 4.Osteoarthritis Chronic relatively stable no change in current treatment. Ordered: Office Visit Level 4 Est 73083 5.Tobacco use I strongly encouraged her to discontinue smoking offered assistance reviewed rationale for that. She enjoys smoking she's not planning on stopping at this time. Ordered: Office Visit Level 4 Est 95495
--- OUTSIDE RECORDS SUMMARY | 2017-11-17 09:47 | External Medical Summary | Referral Summary ---
:1950 Author Organization [facility], [address] [place] [address] Care Team Providers Name Role Phone Júnior Solano Primary Care Physician Encounter [facility] Date(s): 02/13/15 - 02/13/15 [facility] [address] [place] [phone] [place] Discharge Diagnosis: [...] colonoscopy, tubular adenoma, repeat in 5 years [id number]-bgovmwz adenoma Allergies, Adverse Reactions, Alerts Substance Reaction [...] 0 Refill(s) Start Date: 11/03/14 Status: OrderedFluvirin 6484-3965 0 Refill(s) Start Date: 11/03/14 Status: Orderedibuprofen 200 mg oral tablet 3 tabs, Oral, BID, as needed for arthritis, with food, 0 Refill(s) Start Date: 05/13/14 Status: Orderedlisinopril-hydrochlorothiazide 20 mg-25 mg oral tablet See Instructions, TAKE ONE TABLET BY MOUTH ONCE DAILY, # 30 tabs, 2 Refill(s), eRx: [facility], TAKE ONE TABLET BY MOUTH ONCE DAILY Start Date: 06/14/15 Status: Orderedmeloxicam 7.5 mg oral tablet See Instructions, TAKE ONE TABLET BY MOUTH TWICE DAILY, # 60 tabs, eRx: [facility], TAKEONE TABLET BY MOUTH TWICE DAILY Start Date: 07/14/15 Status: OrderedParafon Forte DSC 500 mg oral tablet See Instructions, 1 tabs Oral Daily,PRN:as needed for pain,Instr:Take at bedtime as needed, # 30 tabs, 2 Refill(s), eRx: [facility], 1 tabs Oral Daily,PRN:as needed for pain,Instr:Take at bedtime as needed Start Date: 06/14/15 Status: Orderedsimvastatin 20 mg oral tablet See Instructions, TAKE ONE TABLET BY MOUTH ONCE DAILY IN THE EVENING, # 90 tabs , eRx: [facility], TAKE ONE TABLET BY MOUTH ONCE DAILY IN THE EVENING Start Date: 07/14/15 Status: OrderedtraZODone 50 mg oral tablet See Instructions, TAKE ONE TABLET BY MOUTH AT BEDTIME, # 30 tabs, 2 Refill(s), eRx: [facility], TAKE ONE TABLET BY [...] of cancer,diverticula or other abnormalities.2HX adenomatous colon [id number] lifph6vpoavwfmvqxpp -tubular adenoma Social History Social History Type [...] 03/10/2009 Document Revised: 12/14/2012 Document Reviewed: 03/10/2009 [facility] Patient Information 2014 [employer]. No follow up information was provided. Extracted from: Title: Office Visit Note Author: Júnior Solano MD Date: 02/13/15 Assessment/Plan Allergic rhinitis Increase Flonase to 2 times daily 1 puff each nostril. Ordered: Office Visit Level 4 Est 23754 Asthma without status asthmaticus Overall stable no change in current treatment. Follow-up in 6 months. Ordered: Office Visit Level 4 Est 19116 Benign essential hypertension The pressures adequately controlled no change in current treatment recommended. Follow-up in 6 months. Recent laboratory studies report card reviewed and provided. Ordered: Office Visit Level 4 Est 26317 Osteoarthritis Stable no change in current treatment. Ordered: Office Visit Level 4 Est 61019 Orders: BD Bone Density DEXA Axial Skeleton Hyperlipidemia Continue simvastatin at its current dosage. Recent laboratory studies reviewed and provided.
--- OUTSIDE RECORDS SUMMARY | 2017-11-17 09:47 | External Medical Summary | Referral Summary ---
:1950 Author Organization [facility] Kwok, [address] [place] [address] Care Team Providers Name Role Phone Júnior Solano Primary Care Physician Encounter VC Date(s): 02/13/15 - 02/13/15 [facility]ok [address] [place] [phone] [place] Discharge Diagnosis: [...] colonoscopy, tubular adenoma, repeat in 5 years [id number] adenoma Allergies, Adverse Reactions, Alerts Substance Reaction [...] 0 Refill(s) Start Date: 11/03/14 Status: OrderedFluvirin 3589-4257 0 Refill(s) Start Date: 11/03/14 Status: Orderedibuprofen 200 mg oral tablet 3 tabs, Oral, BID, as needed for arthritis, with food, 0 Refill(s) Start Date: 05/13/14 Status: Orderedlisinopril-hydrochlorothiazide 20 mg-25 mg oral tablet See Instructions, TAKE ONE TABLET BY MOUTH ONCE DAILY, # 30 tabs, 2 Refill(s), eRx: [facility], TAKE ONE TABLET BY MOUTH ONCE DAILY Start Date: 06/14/15 Status: Orderedmeloxicam 7.5 mg oral tablet See Instructions, TAKE ONE TABLET BY MOUTH TWICE DAILY, # 60 tabs, eRx: [facility], TAKEONE TABLET BY MOUTH TWICE DAILY Start Date: 08/17/15 Status: OrderedParafon Forte DSC 500 mg oral tablet See Instructions, 1 tabs Oral Daily,PRN:as needed for pain,Instr:Take at bedtime as needed, # 30 tabs, 2 Refill(s), eRx: [facility], 1 tabs Oral Daily,PRN:as needed for pain,Instr:Take at bedtime as needed Start Date: 06/14/15 Status: Orderedsimvastatin 20 mg oral tablet See Instructions, TAKE ONE TABLET BY MOUTH ONCE DAILY IN THE EVENING, # 90 tabs , eRx: [facility], TAKE ONE TABLET BY MOUTH ONCE DAILY IN THE EVENING Start Date: 07/14/15 Status: OrderedtraZODone 50 mg oral tablet See Instructions, TAKE ONE TABLET BY MOUTH AT BEDTIME, # 30 tabs, 2 Refill(s), eRx: [facility], TAKE ONE TABLET BY MOUTH [...] of cancer,diverticula or other abnormalities.2HX adenomatous colon [id number] [id number] -tubular adenoma Social History Social History Type [...] 03/10/2009 Document Revised: 12/14/2012 Document Reviewed: 03/10/2009 [facility] 2014 [employer]. No follow up information was provided. Extracted from: Title: Office Visit Note Author: Júnior Solano MD Date: 02/13/15 Assessment/Plan Allergic rhinitis Increase Flonase to 2 times daily 1 puff each nostril. Ordered: Office Visit Level 4 Est 32664 Asthma without status asthmaticus Overall stable no change in current treatment. Follow-up in 6 months. Ordered: Office Visit Level 4 Est 38812 Benign essential hypertension The pressures adequately controlled no change in current treatment recommended. Follow-up in 6 months. Recent laboratory studies report card reviewed and provided. Ordered: Office Visit Level 4 Est 97831 Osteoarthritis Stable no change in current treatment. Ordered: Office Visit Level 4 Est 78330 Orders: BD Bone Density DEXA Axial Skeleton Hyperlipidemia Continue simvastatin at its current dosage. Recent laboratory studies reviewed and provided.
--- OUTSIDE RECORDS SUMMARY | 2017-11-17 09:47 | External Medical Summary | Referral Summary ---
:1950 Author Organization [facility] Kwok, [address] [place] [address] Care Team Providers Name Role Phone Júnior Solano Primary Care Physician Encounter VC Date(s): 08/21/15 - 08/21/15 [facility] [address] [place] [phone] [place] Discharge Diagnosis: Asthma without status asthmaticus (disorder) Discharge Diagnosis: Hyperlipidemia Discharge Diagnosis: Allergic rhinitis Discharge Diagnosis: Benign essential hypertension Discharge Disposition: 01-Home or Self Care Attending Physician: Júnior Solano MD Admitting Physician: Júnior Solano MD Vital Signs Most recent to oldest [Reference Range]: 1 Temperature Tympanic [36.6-38.1 degC] 36.8 degC (08/21/15 9:51 AM) Peripheral Pulse Rate [60-100 bpm] 80 bpm (08/21/15 9:51 AM) Respiratory Rate [14-20 br/min] 16 br/min (08/21/15 9:51 AM) Blood Pressure [90-140/60-90 mmHg] 130/72 mmHg (08/21/15 9:51 AM) Problem List Condition Effective Dates Status [...] colonoscopy, tubular adenoma, repeat in 5 years [id number] adenoma Allergies, Adverse Reactions, Alerts Substance Reaction [...] 0 Refill(s) Start Date: 11/03/14 Status: OrderedFluvirin 0733-3753 0 Refill(s) Start Date: 11/03/14 Status: Orderedibuprofen 200 mg oral tablet 3 tabs, Oral, BID, as needed for arthritis, with food, 0 Refill(s) Start Date: 05/13/14 Status: Orderedlisinopril-hydrochlorothiazide 20 mg-25 mg oral tablet See Instructions, TAKE ONE TABLET BY MOUTH ONCE DAILY, # 30 tabs, 2 Refill(s), eRx: [facility], TAKE ONE TABLET BY MOUTH ONCE DAILY Start Date: 06/14/15 Status: Orderedmeloxicam 7.5 mg oral tablet See Instructions, TAKE ONE TABLET BY MOUTH TWICE DAILY, # 60 tabs, eRx: [facility], TAKEONE TABLET BY MOUTH TWICE DAILY Start Date: 08/17/15 Status: OrderedParafon Forte DSC 500 mg oral tablet See Instructions, 1 tabs Oral Daily,PRN:as needed for pain,Instr:Take at bedtime as needed, # 30 tabs, 2 Refill(s), eRx: [facility], 1 tabs Oral Daily,PRN:as needed for pain,Instr:Take at bedtime as needed Start Date: 06/14/15 Status: Orderedsimvastatin 20 mg oral tablet See Instructions, TAKE ONE TABLET BY MOUTH ONCE DAILY IN THE EVENING, # 90 tabs , eRx: [facility], TAKE ONE TABLET BY MOUTH ONCE DAILY IN THE EVENING Start Date: 07/14/15 Status: OrderedtraZODone 50 mg oral tablet See Instructions, TAKE ONE TABLET BY MOUTH AT BEDTIME, # 30 tabs, 2 Refill(s), eRx: [facility], TAKE ONE TABLET [...] of cancer,diverticula or other abnormalities.2HX adenomatous colon [id number] [id number] -tubular adenoma Social History Social History Type Response Smoking Status Current every day smoker; Type: Cigarettes; Tobacco use per day : Pack Assessment and Plan Extracted from: Title: Office Visit Note Author: Júnior Solano MD Date: 08/21/15 Assessment/Plan Allergic rhinitis, Allergic rhinitis, unspecified I recommended continuing current allergy treatment. Hopefully with the freeze later this week symptoms will improve as well. If they worsen or further problems develop she'll let us know. Ordered: Office Visit Level 4 Est 68885 Asthma without status asthmaticus (disorder), Mild persistent asthma, uncomplicated Chronic stable no change in current treatment. Recheck in 6 months. Ordered: Office Visit Level 4 Est 35126 Benign essential hypertension, Essential (primary) hypertension Blood pressures adequately controlled. Medications and treatments reviewed no changes are recommended. Recent laboratory studies and report card reviewed and provided. Follow-up in 6 months. Ordered: Office Visit Level 4 Est 15387 Hyperlipidemia, Mixed hyperlipidemia Chronic stable. Medications reviewed no changes are recommended. Recheck in 6 months with fasting lab. Ordered: Office Visit Level 4 Est 51316
--- OUTSIDE RECORDS SUMMARY | 2017-11-17 09:48 | External Medical Summary | Continuity of Care Document ---
:1950 Author Organization Via [facility] Allergies There is no data. Medications There is no data. Problems There is no data. Procedures There is no data. Results There is no data. Encounters ACCT No. Visit Discharge Status Pt. Type Provider Facility Loc./Unit Complaint Date/Time [id number] 11/12/2013 11/12/2013 C[facility] Outpatient 09:33:00 23:59:59 [id number] 10/15/2013 10/15/2013 CLS Outpatient 13:54:00 23:59:59 [id number] 09/06/2013 09/06/2013 CLS Outpatient 13:10:00 23:59:59
--- OUTSIDE RECORDS SUMMARY | 2017-11-17 09:48 | External Medical Summary | Referral Summary ---
:1950 Author Organization [facility] Kwok, [address] [place] [address] Care Team Providers Name Role Phone Júnior Solano Primary Care Physician Encounter VC Date(s): 02/13/15 - 02/13/15 [facility] [address] [place] [phone] [place] Discharge Diagnosis: [...] colonoscopy, tubular adenoma, repeat in 5 years [id number] adenoma Allergies, Adverse Reactions, Alerts Substance Reaction [...] 0 Refill(s) Start Date: 11/03/14 Status: OrderedFluvirin 0404-5196 0 Refill(s) Start Date: 11/03/14 Status: Orderedibuprofen 200 mg oral tablet 3 tabs, Oral, BID, as needed for arthritis, with food, 0 Refill(s) Start Date: 05/13/14 Status: Orderedlisinopril-hydrochlorothiazide 20 mg-25 mg oral tablet See Instructions, TAKE ONE TABLET BY MOUTH ONCE DAILY, # 30 tabs, 2 Refill(s), eRx: [facility], TAKE ONE TABLET BY MOUTH ONCE DAILY Start Date: 06/14/15 Status: Orderedmeloxicam 7.5 mg oral tablet See Instructions, TAKE ONE TABLET BY MOUTH TWICE DAILY, # 60 tabs, eRx: [facility], TAKEONE TABLET BY MOUTH TWICE DAILY Start Date: 07/14/15 Status: OrderedParafon Forte DSC 500 mg oral tablet See Instructions, 1 tabs Oral Daily,PRN:as needed for pain,Instr:Take at bedtime as needed, # 30 tabs, 2 Refill(s), eRx: [facility], 1 tabs Oral Daily,PRN:as needed for pain,Instr:Take at bedtime as needed Start Date: 06/14/15 Status: Orderedsimvastatin 20 mg oral tablet See Instructions, TAKE ONE TABLET BY MOUTH ONCE DAILY IN THE EVENING, # 90 tabs , eRx: [facility], TAKE ONE TABLET BY MOUTH ONCE DAILY IN THE EVENING Start Date: 07/14/15 Status: OrderedtraZODone 50 mg oral tablet See Instructions, TAKE ONE TABLET BY MOUTH AT BEDTIME, # 30 tabs, 2 Refill(s), eRx: [facility], TAKE ONE TABLET BY [...] of cancer,diverticula or other abnormalities.2HX adenomatous colon [id number] [id number] -tubular adenoma Social History Social History Type [...] 03/10/2009 Document Revised: 12/14/2012 Document Reviewed: 03/10/2009 [facility] Patient Information 2014 [employer]. No follow up information was provided. Extracted from: Title: Office Visit Note Author: Júnior Solano MD Date: 02/13/15 Assessment/Plan Allergic rhinitis Increase Flonase to 2 times daily 1 puff each nostril. Ordered: Office Visit Level 4 Est 86006 Asthma without status asthmaticus Overall stable no change in current treatment. Follow-up in 6 months. Ordered: Office Visit Level 4 Est 06772 Benign essential hypertension The pressures adequately controlled no change in current treatment recommended. Follow-up in 6 months. Recent laboratory studies report card reviewed and provided. Ordered: Office Visit Level 4 Est 41055 Osteoarthritis Stable no change in current treatment. Ordered: Office Visit Level 4 Est 37182 Orders: BD Bone Density DEXA Axial Skeleton Hyperlipidemia Continue simvastatin at its current dosage. Recent laboratory studies reviewed and provided.
[2017-11-17] MEDS: SALINE FLUSH 10ml SYRINGE IVF PRN ×2 (10:11→12:14)
--- NOTE | 2017-11-17 10:24 | CT Scan Report ---
EXAM: CT head/brain wo con COMPARISON: 05/04/2012. HISTORY: altered mental status history of basilar stroke LOCATION OF DICTATION: [facility] [place]. TECHNIQUE: Without IV contrast, axial images were obtained through the brain and reviewed in brain, soft tissue, bone, and subdural windows. The current CT scan was performed using radiation dose-reduction techniques. FINDINGS:Hypodensity is seen at the anterior limb of the left internal capsule and may involve the caudate nucleus and left putamen as well. This may represent a developing lacunar infarct although the age is indeterminate. There is an area of hypodensity at the superior right putamen which may represent an old lacunar infarct. There is extension into the right periventricular deep matter and was present on prior exam. The CSF spaces are prominent likely related to atrophy in keeping with age. Periventricular deep white matter hypodensities are noted likely related to small vessel ischemic disease. The suprasellar cistern and quadrigeminal plate cisterns are intact. The de la garza-white junctions are distinct. No sulcal effacement is identified. The posterior fossa and brainstem region appear unremarkable. There is no evidence for midline shift or mass effect. The midline structures appear unremarkable. No osseous abnormalities are identified. The paranasal sinuses and mastoid air cells are clear. IMPRESSION: 1. Atrophy in keeping with age. 2. Periventricular deep white matter hypodensities are noted likely related to small vessel ischemic disease. 3. Hypodensity is seen within the left internal capsule and caudate nucleus and putamen which may represent a lacunar infarct which was not present on prior exam although the age is indeterminate. 4. Right putamen lacunar infarct again noted which was present on prior exam. Note: This report was generated soon after the exam was performed and is immediately available to the ordering clinician on 11/17/2017 10:20 AM. .
--- NOTE | 2017-11-17 11:13 | XRay Report ---
EXAM: XR chest 1V 1047 hours COMPARISON: 05/04/2012. HISTORY: altered mental status crackles and wheezing in left lung . FINDINGS:EKG leads and wires project over the chest. The heart is upper limits of normal to mildly enlarged. The pulmonary vascularity appears unremarkable. The lungs are clear. There is no evidence for pleural effusion. There is no evidence for a pneumothorax. No osseous abnormalities are identified. IMPRESSION: The heart is upper limits of normal to mildly enlarged. Otherwise unremarkable. LOCATION OF DICTATION: [facility] [place] .
[2017-11-17] MEDS ORDERED: ONDANSETRON 4 MG/2 ML INJECTION IVP PRN (12:03)
[2017-11-17 12:06] VITALS: BMI 37.8
[2017-11-17] MEDS: NS 1,000 ML IV SCH (12:14)
--- NOTE | 2017-11-17 12:34 | History & Physical Report ---
History of Present Illness Date: 11/17/17 Chief complaint: Confusion HPI: Lizzy Borjas is a 67 year old woman who was taken to [facility] ED by her for further evaluation of confusion. The patient has delayed responses and was not consistently a good historian; therefore, hx was obtained primarily from her spouse and previous records. She reportedly has been in her typical state of health until this morning, when she was lethargic, difficult to rouse, and confused. She complained of chest pain in the ED but denied it during this interview. She admits to having some difficulty swallowing but denied any headache, visual changes, paresthesias, dizziness, or unilateral weakness. Her stated that her gait was steady this morning. No fever/chills, cough/ congestion, or SOA though states that she wheezes on occasion. She denies abdominal pain, n/v/d/c, or urinary problems. In the ED, she was noted to be in a-fib with a slow ventricular response, with rates as low as 36. She does not have a history of a-fib. Head CT showed a Hypodensity is seen within the left internal capsule and caudate nucleus and putamen which may represent a lacunar infarct which was not present on prior exam although the age is indeterminate; and an old right putamen lacunar infarct. Labs were unremarkable. In light of her acute encephalopathy, possible stroke, and symptomatic bradycardia, she was admitted under the hospitalist service. Review of Systems ROS unobtainable: due to mental status - Constitutional Constitutional: Present: as per HPI - EENMT Eyes: Present: as per HPI, requires corrective lenses Ears: Present: ear pain (left) Balance: Present: as per HPI Nose: Present: as per HPI Mouth/Throat: Present: as per HPI - Cardiovascular Cardiovascular: Present: as per HPI Vascular: Absent: pedal edema, unilateral swelling - Respiratory Respiratory: Present: as per HPI - Gastrointestinal Gastrointestinal: Present: as per HPI - Genitourinary Genitourinary: Present: as per HPI - Musculoskeletal Musculoskeletal: Present: as per HPI - Integumentary/Breasts Integumentary: Absent: rash - Neurological Neurological: Present: as per HPI - Psychiatric Psychiatric: Present: behavioral changes - Endocrine Endocrine: Absent: palpitations - Allergic/Immunologic Allergic/Immunologic: Present: seasonal rhinorrhea Past Medical History Stroke COPD/Asthma HTN Allergic rhinitis Obesity BMI 37.9 Family History Updates: Patient had difficulty recalling family history: Mother had cancer. She's unsure about her father. Sister: HTN, COPD, diabetes ( per previous record) - Social History Smoking status: Current every day smoker Packs per day: 1 Substance use type: does not use Alcohol intake frequency: other (rare) Household members: spouse Social history: PCP: Dr. Solano Medications Home Medications Medication Instructions Recorded Confirmed Type Meloxicam 7.5 mg PO BID #0 01/31/10 11/17/17 History Simvastatin 20 mg PO DAILY #0 03/17/13 11/17/17 History Aspirin [Aspirin EC] 81 mg PO DAILY 11/17/17 11/17/17 History Baclofen [Lioresal] 10 mg PO DAILY PRN 11/17/17 11/17/17 History Cetirizine HCl [Zyrtec] 10 mg PO DAILY 11/17/17 11/17/17 History Lisinopril/Hctz 20/25 [Prinzide 1 tab PO DAILY 11/17/17 11/17/17 History 20/25] Trazodone [Desyrel] 50 mg PO HS 11/17/17 11/17/17 History Allergies Allergy/AdvReac Type Severity Reaction Status Date / Time cortisone Allergy Mild RED Verified 11/17/17 09:38 neomycin Allergy Mild RED Verified 11/17/17 09:38 Sulfa (Sulfonamide Allergy Mild ITCH Verified 11/17/17 09:38 Antibiotics) Exam Vital Signs: Temperature 96.8 F 11/17/17 12:03 Pulse Rate 61 11/17/17 12:03 Respiratory Rate 20 11/17/17 12:03 Blood Pressure 114/74 11/17/17 12:03 Pulse Oximetry 92 11/17/17 12:03 Telemetry Rhythm: A-fib Height/Weight/BMI: Height 1.68 m Weight 106.4 kg Body Mass Index 37.8 - Constitutional Present: no acute distress, well nourished, well developed - Routine HEENT Exam Head: Present: normocephalic Eye: Present: EOMI, PERRL. Absent: conjunctival icterus, scleral injection ENT: Present: mucous membranes dry, oropharynx clear, dentition normal. Absent : TM's clear bilaterally (left is reddened and dull) - Routine Neck Exam Present: supple - Routine Respiratory Exam Present: wheezes - Routine Cardiovascular Exam Present: bradycardia, irregularly irregular - Routine Abdominal Exam Present: soft, normoactive bowel sounds, non distended, non tender - Routine Extremities Exam Present: clubbing (fingertips), no edema, pulses intact, normal capillary refill - Routine Skin Exam Present: intact, dry, warm - Routine Neurological Exam Present: alert, CN II-XII intact, altered mental status, moving all extremities , vision grossly intact, hearing grossly intact. Absent: sensory deficit, motor deficit, facial asymmetry, normal speech (delayed), tremors difficulty with rapid alternating movements and [id number] - Routine Psychiatric Exam Present: cooperative Results - Labs CBC & Chem 7: 11/17/17 10:17 11/17/17 10:17 Assessment and Plan (1) Symptomatic bradycardia Current visit: Yes Status: Acute Assessment and Plan: ADMISSION DIAGNOSES Acute ischemic stroke New onset a-fib with slow ventricular response and symptomatic bradycardia Acute encephalopathy Left otitis media COMORBIDITIES Cerebral vascular disease with prior history of stroke HTN COPD/asthma Tobacco use Obesity with BMI 37.9 PLAN Admit, observation status, under the hospitalist service. Stroke workup: MR brain, carotid Doppler, echocardiogram, lipid panel. She has been on ASA, though was unable to verify if she takes it frequently. Will hold on restarting lisinopril/HCTZ to allow for permissive HTN. Consult PT/ OT/ST. A-fib with bradycardia: echo as above, consult Dr. Up, CHADSVASc= 5. Suspect we should consider this as ASA failure and with new onset A-fib, we may need to move directly to anticoagulation. Start Amoxicillin for left otitis; spouse reports that she puts cotton in her ear year-round, though pt reports that pain just started yesterday. DuoNeb QID for wheezing/COPD. Consult RT for tobacco cessation counseling; nicotine patch PRN. Linda Assessement as above with: acute ischemic stroke suspected - age indeterminant new lesion on CT, MRI would better clarify DVT Prophylaxis: SCD's Resuscitation Status: Full Code - Physician Narrative Physician: Jose Eduardo Mckeon MD Narrative: Date: 11/17/17 Time: 0 Have independently interviewed and examined pt. Chart reviewed. Case discussed with ED physician and my INSURANCE VERIFY REP. Care plan developed with my supervision; agree with above. Presents to ED secondary to confusion and delayed response. Symptoms onset this am. Cognitive slowing present. Pt having difficult time answering questions. Can understand words spoken to her. Able to identify objects. Not having headache or nausea. Able to move arms and legs, but very slow. Does feel very tired and weak. Notes slight cough but not SOA. Denies chest pressure or heaviness. No ab pain. Bowels stable. Lungs: decreased bilaterally, end expiratory wheezes. No distress on RA. CV: irregular, bradycardic. AB: soft nt/nd +BS EXT: +1 BLE Neuro: CN II-XII intact. Moves arms and legs spontaneously and to command. Slowing of fine motor control of fingers. MSE: appropriate, but cognitively slow Plan: OBS admission. IVF of NS to maintain hydration. Check MRI to further determine acute process to brain. Cardiology consult secondary to afib/slow vent rate - ? some on diffuse cognitive slowing secondary to overall decrease in cardiac output. Check ECHO and Doppler neck. PT/OT/Speech eval. RT for tobacco cessation. With ASA failure, could change to Plavix - check on MRI to determine new stoke as would not want to fully anticoagulate if new stroke present. Hospital Course Summary Disclaimer: The visit summary below is not to be considered part of the above Progress Note. Hospital Course: 11/17 Admit, observation status, under the hospitalist service. Stroke workup: MR brain, carotid Doppler, echocardiogram, lipid panel. She has been on ASA, though was unable to verify if she takes it frequently. Will hold on restarting lisinopril/HCTZ to allow for permissive HTN. Consult PT/ OT/ST. A-fib with bradycardia: echo as above, consult Lizandro Newell= 5. Suspect we should consider this as ASA failure and with new onset A-fib, we may need to move directly to anticoagulation. Start Amoxicillin for left otitis; spouse reports that she puts cotton in her ear year-round, though pt reports that pain just started yesterday. DuoNeb QID for wheezing/COPD. Consult RT for tobacco cessation counseling; nicotine patch PRN. Care to return to Dr Solano at time of discharge from [facility].
[2017-11-17] MEDS: ALBUTEROL/IPRATROPIUM 2.5mg-0.5mg/3ml NEB AEROSOL SCH (13:00)
[2017-11-17] MEDS ORDERED: NICOTINE 21 MG PATCH TD PRN (13:36)
[2017-11-17] MEDS ORDERED: ACETAMINOPHEN 500 MG TABLET PO PRN (13:36)
[2017-11-17] MEDS: AMOXICILLIN 500 MG CAPSULE PO SCH ×2 (15:36→20:49)
--- NOTE | 2017-11-17 16:06 | Ultrasound Report ---
EXAM: US carotid doppler LOCATION OF DICTATION: [facility] [place]. HISTORY: stroke COMPARISON: None available. TECHNIQUE: Ultrasound evaluation of both the right and left carotid arteries was performed using 2D, de la garza-scale imaging and realtime, color Doppler flow, and spectral analysis. FINDINGS: There is mild atherosclerotic plaquing noted. PEAK VELOCITIES (cm/s) CCA: RIGHT: 46 cm/s LEFT: 41 cm/s ICA: RIGHT: 77 cm/s LEFT: 67 cm/s ECA: RIGHT: 61 cm/s LEFT: 63 cm/s ICA/CCA Ratio: RIGHT: 1.2 LEFT: 1.4 VERT: RIGHT: Antegrade. LEFT: Not visualized. COMMENTS: The velocities obtained are in the less than 50% stenosis range ARTERIES. This is based on the consensus panel criteria. Study was technically difficult and the left vertebral artery is not able to be well visualized. IMPRESSION: No hemodynamically significant stenosis within either ICA. .
[2017-11-17] MEDS: CLOPIDOGREL 75 MG TABLET PO SCH (18:25)
--- NOTE | 2017-11-17 19:17 | Cardiology Consult Note ---
History of Present Illness Consult reason: atrial fibrillation History of present illness: Mrs. Borjas is a pleasant 67-year-old Female with history of fall mild stroke in 2012 tension and hypercholesterolemia. She was brought in emergency room this morning by her due to confusion unable to wake up. She was not acting like herself. Emergency room evaluation showed atrial fibrillation with intermittent bradycardia in the low 40s upper 30s at times, abnormal head CT scan with a hypodensities noted see head CT scan report.no major or large size strokes or masses . I was asked to see the patient for evaluation of A. fib and bradycardia. She is unfortunately a poor historian. To me she denies any chest pain or palpitations denies dyspnea. Denies syncope or falls. She's had some dizziness this morning reported by her . She is nothing by mouth for suspected acute stroke until she gets cleared. Plan to have an MRI of the brain tomorrow and carotid studies. Her preliminary echocardiogram showed good LV function . trop negative ,BMP and CBC unremarkable. She is now treated with Plavix. Medication list from home does not include AV lino active medications. Does include simvastatin and lisinopril/HCTZ and aspirin,they state compliance with which.She doesn't have previously known heart disease or atrial fibrillation. Review of Systems All systems PM: 10-point ROS was reviewed, no additional remarkable complaints except PFSH Patient Stated Medical History Cerebrovascular Accident Yes Cardiac Arrhythmia Yes: BRADYCARDIA Hypertension Yes Chronic Obstructive Pulmonary Yes Disease (COPD) Hx Incontinence Yes Other Musculoskeletal Yes: takes muscle relaxer "to help me get up and down" Other Yes: pt poor historiancory incomplete Medical History Updates: Prior CVA 2011. Hypertension. Hyperlipidemia Family History Updates: Brother has heart disease. Mother from cancer. Father at a very long time ago of unknown reason - Social History Smoking status: Current every day smoker Substance use type: does not use Alcohol intake frequency: holidays/special occasions only Household members: spouse Current residence: Apartment/Private Home Medications Home Medications Medication Instructions Recorded Confirmed Type Simvastatin 20 mg PO HS #0 03/17/13 11/20/17 History Acetaminophen [Tylenol] 1,000 mg PO Q5H PRN 11/20/17 11/20/17 History Nicotine Patch Removal 1 removal TD DAILY PRN 11/20/17 11/20/17 History Ondansetron Inj [Zofran] 4 mg IVP Q6H PRN 11/20/17 11/20/17 History Saline Flush [IV Flush] 10 ml IV PRN PRN 11/20/17 11/20/17 History Allergies Allergy/AdvReac Type Severity Reaction Status Date / Time cortisone Allergy Mild RED Verified 11/19/17 23:22 neomycin Allergy Mild RED Verified 11/19/17 23:22 Sulfa (Sulfonamide Allergy Mild ITCH Verified 11/19/17 23:22 Antibiotics) Exam Vital signs: Temperature 96.8 F 11/17/17 12:03 Pulse Rate 61 11/17/17 12:46 Respiratory Rate 24 11/17/17 13:00 Blood Pressure 114/74 11/17/17 12:03 Pulse Oximetry 96 11/17/17 13:00 - Constitutional no acute distress, well developed, obese - Routine HEENT Exam Head: Present: normocephalic, atraumatic Eye: Present: EOMI, PERRL ENT: Present: mucous membranes moist - Routine Neck Exam Present: normal carotid upstroke. Absent: JVD, carotid bruit, lymphadenopathy, thyromegaly - Routine Respiratory Exam Present: rhonchi (diffuse bilaterally), wheezes (few scattered), crackles (left lung base). Absent: dyspnea, respiratory distress - Routine Cardiovascular Exam Present: S1 (normal), S2 (normal), no murmur, irregularly irregular - Routine Abdominal Exam Present: soft, normoactive bowel sounds, non distended, non tender. Absent: organomegaly - Routine Extremities Exam Present: no edema, pulses intact, normal capillary refill. Absent: cyanosis, clubbing - Routine Skin Exam Present: intact, dry, warm. Absent: cyanosis, erythema - Routine Neurological Exam Present: alert (confused), moving all extremities (a little weak all over and don't appreciate focal motor deficits), vision grossly intact, hearing grossly intact. Absent: motor deficit, facial asymmetry, normal speech (sluggish, low volume ) - Routine Psychiatric Exam Present: cooperative. Absent: normal affect (not interactive, somewhat of a flat affect), normal thought process (slow) Results 11/20/17 04:02 11/20/17 04:02 Cardiac Enzymes 11/17/17 Range/Units 16:09 Troponin I < 0.012 (0-0.12) ng/ml Intake and Output 11/17/17 11/17/17 11/17/17 06:59 14:59 22:59 Output Total 450 / 450 Balance -450 / -450 Output: Urine 450 / 450 Other: Urine Appearance Clear Clear Urine Color Yellow Dark Sima # Voids 1 # Incontinent Voids 1 Weight 106.4 kg Patient Weight 11/18/17 06:59 Weight 106.4 kg - Imaging and Cardiology Echo: report reviewed EKG results: image reviewed - EKG Interpretation EKG shows: atrial fibrillation (A. fib with bradycardia low 50s no acute ST-T changes of ischemia. Telemetry shows A. fib 40s and 60s. No pauses greater than 2.5 second, there was some sequential long RR intervals about 2 seconds each) EKG interpretations - EKG EKG shows: atrial fibrillation Assessment and Plan - Assessment and Plan Atrial fibrillation with a slow ventricular response Bradycardia symptomatic Multiple ischemic strokes including suspected acute lacunar infarct, old infarct and small vessel disease Hypertension Hyperlipidemia COPD Tobacco addiction Rule out aspiration Concur with your management telemetry and initial workup Concur with Plavix at this time Recommend low-dose Lovenox 40 mg subcutaneous daily, d/t afib and DVT prophylaxis. no clinical or head CT evidence of acute large stroke. Await MRI results and clinical course regarding full systemic anticoagulation, that I expect to be needed Check TSH Expect a need for permanent pacemaker implant further discussions to follow she appears to be stable from a cardiac rhythm standpoint at this time Thank you very much for the consultation We'll follow patient along with you Hospital Course Summary Disclaimer: The visit summary below is not to be considered part of the above Progress Note. Hospital Course: 11/17 Admit, observation status, under the hospitalist service. Stroke workup: MR brain, carotid Doppler, echocardiogram, lipid panel. She has been on ASA, though was unable to verify if she takes it frequently. Will hold on restarting lisinopril/HCTZ to allow for permissive HTN. Consult PT/ OT/ST. A-fib with bradycardia: echo as above, consult Dr. Up, CHADSVASc= 5. Suspect we should consider this as ASA failure and with new onset A-fib, we may need to move directly to anticoagulation. Start Amoxicillin for left otitis; spouse reports that she puts cotton in her ear year-round, though pt reports that pain just started yesterday. DuoNeb QID for wheezing/COPD. Consult RT for tobacco cessation counseling; nicotine patch PRN. Care to return to Dr Solano at time of discharge from [facility] [place].
[2017-11-17] MEDS: ENOXAPARIN 40 MG/0.4 ML INJECTION SQ SCH (20:49)
[2017-11-18] MEDS: NS 1,000 ML IV SCH ×2 (02:53→16:38)
[2017-11-18] MEDS: ALBUTEROL/IPRATROPIUM 2.5mg-0.5mg/3ml NEB AEROSOL SCH ×5 (03:05→20:06)
[2017-11-18] MEDS: AMOXICILLIN 500 MG CAPSULE PO SCH ×2 (08:00→21:24)
[2017-11-18] MEDS: CLOPIDOGREL 75 MG TABLET PO SCH (08:01)
[2017-11-18] MEDS: ENOXAPARIN 40 MG/0.4 ML INJECTION SQ SCH (08:01)
[2017-11-18] MEDS ORDERED: NICOTINE PATCH REMOVAL TD PRN (09:00)
--- NOTE | 2017-11-18 09:53 | Magnetic Resonance Report ---
Indication: ? New stroke PROCEDURE: MR head/brain wo con: Encounter: Initial Comparisons: Head CT dated November 17, 2017 and brain MRI dated May 05, 2012 Technique: Multiplanar, multisequence, MR imaging of the head without contrast was acquired. FINDINGS: Motion artifact. Region of acute diffusion restriction involving the left caudate head and lentiform nucleus. This area has expected T2/FLAIR hyperintensity and causes mild mass effect upon the left lateral ventricle. No hydrocephalus. Old lacunar infarcts in the right basal ganglia. There are small nonspecific punctate areas of T2-weighted and T2 FLAIR weighted signal abnormality in the deep frontoparietal white matter that most likely represent small vessel ischemic disease. The brain stem, cerebellum, and cerebral hemispheres otherwise have a normal morphologic appearance as well as MR signal intensity on all pulse sequences. There is no evidence of an intracranial mass lesion, intracranial hemorrhage, or hydrocephalus. The visualized portions of the orbits, calvarium, paranasal sinuses, and skull base demonstrate no significant abnormality. IMPRESSION: Acute left MCA territory infarct involving the caudate head and lentiform nucleus. .
--- NOTE | 2017-11-18 11:07 | Progress Note ---
- Date 11/18/17 Subjective: Bettye was resting in bed, awake. Her wasn't in the room. Her responses were slightly delayed, which is an improvement over yesterday. She was able to accurately state the year and her location. She thought the month was December. She wasn't able to say why she was in the hospital. Bettye seemed drowsy, and didn 't answer every question. She denied any headaches or difficulty breathing. She denied abdominal pain or nausea. She worked with PT/OT. Objective Vital signs: Temperature 97.3 F 11/18/17 07:23 Pulse Rate 70 11/18/17 07:23 Respiratory Rate 20 11/18/17 07:23 Blood Pressure 136/71 11/18/17 07:23 Pulse Oximetry 99 11/18/17 07:23 - Constitutional Present: no acute distress, well nourished, well developed - Routine HEENT Exam Eye: Present: PERRL. Absent: conjunctival icterus, scleral injection ENT: Present: mucous membranes dry - Routine Respiratory Exam Present: wheezes (improved) - Routine Cardiovascular Exam Present: irregularly irregular - Routine Abdominal Exam Present: soft, normoactive bowel sounds, non distended, non tender - Routine Extremities Exam Present: clubbing - Routine Skin Exam Present: intact, dry, warm - Routine Neurological Exam Present: alert, CN II-XII intact (grossly), moving all extremities. Absent: sensory deficit, motor deficit, normal speech (slightly delayed responses) - Routine Psychiatric Exam Present: unable to assess Results - Labs CBC & Chem 7: 11/18/17 04:00 11/18/17 04:00 Assessment and Plan (1) Symptomatic bradycardia Current visit: Yes Status: Acute Assessment and Plan: ADMISSION DIAGNOSES Acute ischemic stroke - Acute left MCA territory infarct involving the caudate head and lentiform nucleus. New onset a-fib with slow ventricular response and symptomatic bradycardia Aphasia-RLL 11/18/17 Dysphagia-RLL 11/18/17 Acute encephalopathy Left otitis media COMORBIDITIES Cerebral vascular disease with prior history of stroke HTN COPD/asthma Tobacco use Obesity with BMI 37.9 PLAN MRI confirmed acute MCA infarct. Still encephalopathic; remains in a-fib. Will obtain carotid dopplers. Lipid panel drawn this am; echo pending. Continue Plavix; Will discuss anticoagulation with Dr. Up. OT recommending home with home health but PT felt she would benefit from skilled IP PT. Speech therapy recommends a soft diet and nectar thick liquids; a formal communication evaluation, and swallow study if there are s/s of aspiration. Will order communication evaluation. Status changed to inpatient. IRU screen ordered. Monitor resp status; wheezing continues but improved. Continue DuoNeb. DVT Prophylaxis: SCD's Resuscitation Status: Full Code - Physician Narrative Physician: Oksana Turcios MD Narrative: Date: 11/18/17 Time: 1600 I have independently evaluated and examined this patient. I reviewed the chart, the patient's history, and the QUALITY INTERN/PA's documented findings as above. We discussed and formulated the assessment and plan as above with additions as below: Lizzy was seen with her and brother at the bedside initially and later was discharged present. Verbal responses remains very slow with little content when I initially saw her. The responses she provided were not inappropriate but she rarely answered instead focused on her menu and was very inattentive. When I revisited her she responded to questions pleasantly, used 3- 5 word phrases without gross word misuse although there was latency and response and occasionally pauses between words. EOMI, facial structure symmetric, detect sensation in all 3 distributions across the face bilaterally, tongue midline; poor dentition Public Address System Installer symmetric, no drift, shoulder shrugs equal. Withdraws both feet to tickle symmetrically, weakly races each leg off the chair. Report sensation present to light touch 4 extremities. Irregular cardiac rhythm-telemetry strips reviewed revealing atrial fibrillation without recurrent bradycardia overnight. MRI reviewed by myself-acute left caudate head infarct with some impingement on the lateral ventricle but no midline shift Carotid Dopplers negative for significant stenosis. Findings discussed with Dr. Up-plan pacemaker placement in the near future, possibly tomorrow. Anticipate anticoagulation in approximately 1-2 weeks to minimize risk of hemorrhagic conversion. Discussed with speech therapy-expressive aphasia present, additionally swallow is worrisome and may require modified swallow study if not improving at bedside in the next 1-2 days. Monitor neuro checks and NIH stroke scale. Hospital Course Summary Disclaimer: The visit summary below is not to be considered part of the above Progress Note. Hospital Course: 11/17/17 Admit, observation status, under the hospitalist service. Stroke workup: MR brain, carotid Doppler, echocardiogram, lipid panel. She has been on ASA, though was unable to verify if she takes it frequently. Will hold on restarting lisinopril/HCTZ to allow for permissive HTN. Consult PT/ OT/ST. A-fib with bradycardia: echo as above, consult Dr. Up, CHADSVASc= 5. Suspect we should consider this as ASA failure and with new onset A-fib, we may need to move directly to anticoagulation. Start Amoxicillin for left otitis; spouse reports that she puts cotton in her ear year-round, though pt reports that pain just started yesterday. DuoNeb QID for wheezing/COPD. Consult RT for tobacco cessation counseling; nicotine patch PRN. Care to return to Dr Solano at time of discharge from [facility] [place]. 11/18/17 MRI confirmed acute MCA infarct. Still encephalopathic; remains in a-fib. Will obtain carotid dopplers. Lipid panel drawn this am; echo pending. Continue Plavix; Will discuss anticoagulation with Dr. Up. OT recommending home with home health but PT felt she would benefit from skilled IP PT. Speech therapy recommends a soft diet and nectar thick liquids; a formal communication evaluation, and swallow study if there are s/s of aspiration. Will order communication evaluation. Status changed to inpatient. IRU screen ordered. Addendum entered and electronically signed by Citlali Allan APRN 11/18/17 11: 18: Pt also hypokalemic (K = 3.1). Check mg and give KDur 40 mEq.
--- NOTE | 2017-11-18 13:08 | Cardiology Progress Note ---
Subjective Interval history: Lizzy is minimally verbal. Her is at bedside. She voices no complaints. She remains confused and quite sluggish. She speaks with a " word salad" She follows commands. Answers questions very inconsistently. I'm not getting any chest pain dyspnea although there was questionable dizziness but she is inconsistent. Started on thickened liquid apparently worked with PT and OT some this morning has been getting up to the bathroom. TELEMETRY WEIGHT BIN'S LAB RESULTS REVIEWED IN DETAIL. MRI of the BRAIN SHOWED AN ACUTE LEFT MCA INFARCTION Telemetry showed A. fib rate in the 60s Exam Vital signs: Temperature 97.3 F 11/18/17 07:23 Pulse Rate 70 11/18/17 07:23 Respiratory Rate 20 11/18/17 07:23 Blood Pressure 136/71 11/18/17 07:23 Pulse Oximetry 99 11/18/17 07:23 - Constitutional no acute distress - Routine HEENT Exam Head: Present: normocephalic, atraumatic Eye: Present: EOMI, PERRL ENT: Present: mucous membranes moist - Routine Neck Exam Present: normal carotid upstroke. Absent: JVD, carotid bruit, lymphadenopathy, thyromegaly - Routine Respiratory Exam Present: decreased breath sounds (bilaterally especially in the bases), rhonchi (left lung base. Overall much clearer today). Absent: dyspnea, respiratory distress - Routine Cardiovascular Exam Present: murmur (2/6 systolic ejection murmur), irregularly irregular. Absent: bradycardia, tachycardia - Routine Abdominal Exam Present: soft, normoactive bowel sounds, non distended, non tender. Absent: rebound, organomegaly, mass - Routine Extremities Exam Present: no edema, normal capillary refill. Absent: cyanosis, clubbing, extremity cold to touch - Routine Skin Exam Present: intact, dry. Absent: cyanosis, erythema - Routine Neurological Exam Present: alert (sluggish), oriented X3, CN II-XII intact, moving all extremities , vision grossly intact, hemineglect (with the right side, interacted better once I stepped to her left side). Absent: facial asymmetry, normal speech ( expressive aphasia) - Routine Psychiatric Exam Absent: normal affect (flat) Results 11/18/17 04:00 11/18/17 04:00 - EKG Interpretation EKG shows: atrial fibrillation Assessment and Plan - Attestation Attestation Narrative: 11/18/17 13:15 Atrial fibrillation slow ventricular response, rates improved today to 60s Bradycardia symptomatic Multiple ischemic strokes including acute left MCA infarction Hypertension Hyperlipidemia COPD Tobacco addiction otitis media w/o fever and w NL WBC,on amoxicillin Concur with your management telemetry and initial workup Concur with Plavix at this time Appears to be tolerating low-dose Lovenox 40 mg subcutaneous daily, d/t afib and DVT prophylaxis. full systemic anticoagulation will probably have to be delayed at least 2 weeks to lower the chances for hemorrhagic transformation. Consider neurology consultation in that regards Expect a need for permanent pacemaker implant further discussions to follow she appears to be stable from a cardiac rhythm standpoint at this time. Appears to be stable from a cardiac standpoint Resume statin due to stroke and history of hyperlipidemia Further plans per primary service. 11/18/17 13:18 11/18/17 14:39 will try to schedule pacemaker tomorrow indications,risks and benefits haley d/w pt and Chang ,they 're in agreement to proceed. they do understand the risk of bleeding and infection and other complications. will hold Lovenox and Plavix after midnight and resume Palvix post op. eventually once pt is cleared by neurology for po anticoagulation ,Plavix should be stopped. d/w hospitalist service. continue SCD's . 11/18/17 14:44 Hospital Course Summary Disclaimer: The visit summary below is not to be considered part of the above Progress Note. Hospital Course: 11/17/17 Admit, observation status, under the hospitalist service. Stroke workup: MR brain, carotid Doppler, echocardiogram, lipid panel. She has been on ASA, though was unable to verify if she takes it frequently. Will hold on restarting lisinopril/HCTZ to allow for permissive HTN. Consult PT/ OT/ST. A-fib with bradycardia: echo as above, consult Dr. Up, CHADSVASc= 5. Suspect we should consider this as ASA failure and with new onset A-fib, we may need to move directly to anticoagulation. Start Amoxicillin for left otitis; spouse reports that she puts cotton in her ear year-round, though pt reports that pain just started yesterday. DuoNeb QID for wheezing/COPD. Consult RT for tobacco cessation counseling; nicotine patch PRN. Care to return to Dr Solano at time of discharge from [facility] [place]. 11/18/17 MRI confirmed acute MCA infarct. Still encephalopathic; remains in a-fib. Will obtain carotid dopplers. Lipid panel drawn this am; echo pending. Continue Plavix; Will discuss anticoagulation with Dr. Up. OT recommending home with home health but PT felt she would benefit from skilled IP PT. Speech therapy recommends a soft diet and nectar thick liquids; a formal communication evaluation, and swallow study if there are s/s of aspiration. Will order communication evaluation. Status changed to inpatient. IRU screen ordered.
[2017-11-18] MEDS ORDERED: CEFAZOLIN 1 G INJECTION IVP ONE (14:30)
--- NOTE | 2017-11-18 17:51 | Consultation ---
DATE OF CONSULTATION 11/18/[address] Turcios CHIEF COMPLAINT Confusion, speech problem and stroke. HISTORY OF PRESENT ILLNESS Patient is a 67-year-old female with no significant past medical history. The patient had acute onset of mild confusion, difficulty expressing herself associated with fatigue and generalized weakness. The patient was brought to the emergency room and she had a CT of the head that showed a possible stroke affecting the left basal ganglia area. The patient was admitted to the hospital and she had an MRI of the brain that showed an acute ischemic stroke affecting the left putamen and basal ganglia area in the left middle cerebral artery distribution. The patient's symptoms of mild confusion, expressive aphasia and word-finding difficulties slowly improved during admission. She continues to have some mild dysphagia and swallowing problem. She denies having any headache. She has had no focal weakness or numbness. She does have some mild coordination problem and balance problem. The patient was found to have episodes of bradycardia and atrial fibrillation on telemetry. This has been managed with medication. Patient is going to have a pacemaker placed to address those cardiac problems. She has been taking Plavix for stroke prevention at the present time. This will be changed later to Xarelto after pacemaker placement. On physical examination the patient was awake, alert, oriented x 2. Speech was slow. She was able to answer questions correctly. There was no significant dysarthria. The patient has some word-finding difficulties. Her facial motor and sensory examination were almost symmetrical. The patient had some mild articulation problem. Motor examination in the upper and lower extremities was in the 5-/5 range. The patient was slower on the left compared to the right due to the dexterity problem. Coordination for [id number] was slightly slower on the right compared to the left. Sensory examination was symmetrical to light touch, pinprick and temperature sensation. Deep tendon reflexes were 2/4. Plantar reflexes were in flexion bilaterally. ASSESSMENT Acute ischemic stroke affecting the left basal ganglia and the caudate nucleus. This has been associated with new-onset atrial fibrillation and bradycardia problem. The patient has had mild expressive aphasia, dysarthria and dysphasia problem. She was having some mild confusion upon admission and this has improved. PLAN 1. Followup Cardiology recommendation for a pacemaker placement and then treatments with Xarelto for atrial fibrillation and stroke prevention. 2. Provide good fluid intake. 3. The patient will need to have speech therapy inpatient and outpatient to help improve her speech and swallowing difficulties. 4. Monitor blood pressure closely and avoid any low blood pressure. BRANDON
[2017-11-18] MEDS: SIMVASTATIN 20 MG TABLET PO SCH (21:24)
[2017-11-19] MEDS: NS 1,000 ML IV SCH ×2 (05:16→05:52)
[2017-11-19] MEDS: ALBUTEROL/IPRATROPIUM 2.5mg-0.5mg/3ml NEB AEROSOL SCH ×4 (07:05→21:51)
--- NOTE | 2017-11-19 09:03 | Echocardiogram ---
DATE 11/17/2017 INDICATION Atrial fibrillation. Ischemic stroke. TECHNICAL QUALITY Technically good 2-D, M-mode, Doppler echocardiographic images were submitted for interpretation. FINDINGS 1. CARDIAC CHAMBERS. Left atrium is dilated, measured 5.3 cm. All other cardiac chambers are normal in size. Aortic root diameter is normal. RV size and contractility appear normal. 2. LEFT VENTRICLE. Wall thickness appears normal. I measured septum about 10 mm. Posterior wall was measured 10 mm by the automotive exhaust emissions technician. Wall motion analysis shows good wall motion, good LV systolic function. Ejection fraction of 70%. 3. VALVES. Aortic valve exhibits mild calcification and sclerosis. Valve opening is normal. Mitral valve exhibits sclerosis and thickening of the anterior leaflet. There is some calcification present as well. Valve opening appears visually mildly restricted. Mitral annular calcification is seen posteriorly. Tricuspid valve structure and motion appeared normal with normal valve excursion. 4. DOPPLER. Shows mild pulmonic insufficiency, mild aortic insufficiency, at least moderate tricuspid regurgitation, at least moderate eccentric mitral regurgitation directed posteriorly. Mitral stenosis study shows a maximum gradient of only 2 mmHg, pressure halftime 134 milliseconds indicative of no significant mitral stenosis. Additional Doppler assessment: E/E' ratio 23.9 indicative of diastolic dysfunction. Underlying rhythm is atrial fibrillation, so no A wave is present. 5. Central venous pressure is estimated to be mildly elevated based on respiratory collapse of just about 50% and mild dilatation. Systolic PA pressure is estimated at 74-79 mmHg based on Bernoulli equation consistent with severe pulmonary hypertension. 6. No evidence of intracardiac masses, thrombi, vegetations or shunts. Bubble study was not performed. IMPRESSION 1. Left atrial enlargement. 2. The patient is in atrial fibrillation throughout the study. 3. Normal LV size and systolic function. 4. Diastolic dysfunction. 5. Calcification of the aortic and mitral valves as described above. 6. Mild aortic regurgitation. 7. Qkvprdtp-vy-eqzmyt mitral regurgitation (eccentric jet directed posteriorly) . 8. Moderate tricuspid regurgitation. 9. Mild pulmonic insufficiency. 10. Severe pulmonary hypertension. 11. No evidence of intracardiac masses, thrombi, vegetations or shunts. 12. It should be noted with the left atrial enlargement and underlying atrial fibrillation, a cardiac source of embolus should still be considered even without a visible left atrial thrombus on 2-D echocardiogram. MTDD
[2017-11-19] MEDS ORDERED: CEFAZOLIN 1 G INJECTION ONE ×2 (12:50→13:33)
[2017-11-19] MEDS ORDERED: FentaNYL 100 MCG/2 ML INJECTION ONE (12:50)
[2017-11-19] MEDS ORDERED: MIDAZOLAM 2mg/2ml INJECTION ONE (12:50)
[2017-11-19] MEDS ORDERED: SALINE FLUSH 10ml SYRINGE ONE (12:51)
[2017-11-19] MEDS ORDERED: LIDOCAINE 1% (10mg/ml) 30ml SDV INJ ONE (12:51)
[2017-11-19] MEDS ORDERED: BACITRACIN 50,000 UNIT INJECTION ONE (12:51)
[2017-11-19] MEDS ORDERED: IOHEXOL 350mg/ml 200ml BOTTLE ONE (13:07)
[2017-11-19] MEDS ORDERED: Oxycodone/Acetaminophen 5/325 1 TAB PO PRN (14:51)
[2017-11-19] MEDS: CLOPIDOGREL 75 MG TABLET PO SCH (15:19)
[2017-11-19] MEDS: AMOXICILLIN 500 MG CAPSULE PO SCH ×3 (15:19→20:08)
--- NOTE | 2017-11-19 16:05 | XRay Report ---
Indication: Post pacemaker PROCEDURE: XR chest 1V: Encounter: Initial Comparison: November 17, 2017 Findings: New left-sided single lead cardiac pacemaker with a right ventricular lead. No evidence of lead fracture or dislodgement. No pneumothorax. Increased interstitial prominence since the prior study suggesting mild edema. No pleural effusion. Heart size and mediastinal contours are stable. Impression: No pneumothorax following pacemaker placement. .
--- NOTE | 2017-11-19 16:22 | Progress Note ---
- Date 11/19/17 Subjective: Bettye was seen with her and brother at bedside. She initially reported she was sleepy but subsequently reported she was okay and denied dyspnea, cough , chest pain or palpitations, nausea, or weakness. Respirations were audibly course but she repetitively denied any difficulty breathing. Patient denies any pain or difficulty swallowing. Pacemaker was scheduled for early afternoon and subsequently single-chamber pacemaker was placed uneventfully. Her brother reports her speech is improving and concurs. Objective Vital signs: Temperature 97.1 F 11/19/17 15:05 Pulse Rate 65 11/19/17 16:00 Respiratory Rate 18 11/19/17 15:05 Blood Pressure 168/91 H 11/19/17 15:50 Pulse Oximetry 97 -1 L 11/19/17 15:50 EXAM General-drowsy, mild latency to verbal responses but improved from yesterday HEENT-conjugate gaze, EOMI, conjunctiva clear Lungs-coarse breath sounds anteriorly and posteriorly, partially clears with cough; respirations nonlabored Cardiac-irregular rhythm, S1-S2, soft systolic murmur-heart tones largely obscured by pulmonary noise Abd-soft, nontender, without palpable mass, bowel sounds present Ext-without edema Neuro-MAEW Psych-drowsy/dull versus inattentive - Rhythm: Atrial Fibrillation with RVR Height/Weight/BMI: Weight 110.3 kg Results - Labs CBC & Chem 7: 11/18/17 04:00 11/19/17 03:55 - Echocardiogram History of Echocardiogram: 11/18/17: 1. Left atrial enlargement. 2. The patient is in atrial fibrillation throughout the study. 3. Normal LV size and systolic function. EF 70%. 4. Diastolic dysfunction. 5. Calcification of the aortic and mitral valves as described above. 6. Mild aortic regurgitation. 7. Awhdzmzw-sn-vxymeo mitral regurgitation (eccentric jet directed posteriorly). 8. Moderate tricuspid regurgitation. 9. Mild pulmonic insufficiency. 10. Severe pulmonary hypertension. 11. No evidence of intracardiac masses, thrombi, vegetations or shunts. 12. It should be noted with the left atrial enlargement and underlying atrial fibrillation, a cardiac source of embolus should still be considered even without a visible left atrial thrombus on 2-D echocardiogram. - Imaging and Cardiology Chest x-ray Status: image reviewed by me (left sided [id number]-[id number], no evidence of pneumothorax. Slight increased vascular markings.) Assessment and Plan (1) CVA (cerebral vascular accident) Problem details: Acute ischemic left MCA stroke involving caudate head and lentiform nucleus Current visit: Yes Status: Acute (2) Symptomatic bradycardia Current visit: Yes Status: Acute Assessment and Plan: ADMISSION DIAGNOSES Acute ischemic stroke - Acute left MCA territory infarct involving the caudate head and lentiform nucleus. New onset a-fib with slow ventricular response and symptomatic bradycardia Aphasia Dysphagia Acute encephalopathy Left otitis media MR/TR/pulmonary hypertension Diastolic dysfunction by echocardiogram. COMORBIDITIES Cerebral vascular disease with prior history of stroke HTN COPD/asthma Tobacco use Obesity with BMI 37.9 PLAN Pacemaker placed today; continue to monitor on telemetry overnight. Discussed with Dr. Up. Anticipate discharge to IRU tomorrow for continued therapy post stroke. Will require initiation of anticoagulation in approximately one week due to development of stroke in conjunction with A. fib. Discontinue Plavix/aspirin at that time Echocardiogram completed, report demonstrated left atrial enlargement, valvular calcification, moderate to severe MR, moderate TR, severe pulmonary hypertension , and normal LV systolic function. Coarse respiratory sounds but no focal findings on o-wgz-etkwobk aspirating, continue speech therapy and will likely require modified barium swallow. Sodium and potassium borderline-half normal saline with KCl initiated. - Physician Narrative Narrative: Date: 11/19/17 Time: 1618 Hospital Course Summary Disclaimer: The visit summary below is not to be considered part of the above Progress Note. Hospital Course: 11/17/17 Admit, observation status, under the hospitalist service. Stroke workup: MR brain, carotid Doppler, echocardiogram, lipid panel. She has been on ASA, though was unable to verify if she takes it frequently. Will hold on restarting lisinopril/HCTZ to allow for permissive HTN. Consult PT/ OT/ST. A-fib with bradycardia: echo as above, consult Dr. Up, CHADSVASc= 5. Suspect we should consider this as ASA failure and with new onset A-fib, we may need to move directly to anticoagulation. Start Amoxicillin for left otitis; spouse reports that she puts cotton in her ear year-round, though pt reports that pain just started yesterday. DuoNeb QID for wheezing/COPD. Consult RT for tobacco cessation counseling; nicotine patch PRN. Care to return to Dr Solano at [place] [facility] [place]17 MRI confirmed acute MCA infarct. Still encephalopathic; remains in a-fib. Will obtain carotid dopplers. Lipid panel drawn this am; echo pending. Continue Plavix; Will discuss anticoagulation with Dr. Up. OT recommending home with home health but PT felt she would benefit from skilled IP PT. Speech therapy recommends a soft diet and nectar thick liquids; a formal communication evaluation, and swallow study if there are s/s of aspiration. Will order communication evaluation. Status changed to inpatient. IRU screen ordered. 11/19/17 Pacemaker placed today; continue to monitor on telemetry overnight. Anticipate discharge to IRU tomorrow for continued therapy post stroke. Will require initiation of anticoagulation in approximately one week due to development of stroke in conjunction with A. fib. Discontinue Plavix at that time. Echocardiogram completed, demonstrated left atrial enlargement, valvular calcification, moderate to severe MR, moderate TR, severe pulmonary hypertension , and normal LV systolic function. Coarse respiratory sounds but no focal findings on e-inf-scinqwl aspirating, continue speech therapy and will likely require modified barium swallow. Sodium and potassium borderline-half normal saline with KCl initiated.
[2017-11-19] MEDS: 1/2 NS with KCL 20mEq 1,000 ML IV SCH (17:25)
[2017-11-19] MEDS: CEFAZOLIN 1 G in NS 50 ML IV SCH (17:26)
[2017-11-19] MEDS: SIMVASTATIN 20 MG TABLET PO SCH ×2 (19:48→20:08)
[2017-11-20] MEDS: CEFAZOLIN 1 G in NS 50 ML IV SCH (00:29)
[2017-11-20] MEDS: 1/2 NS with KCL 20mEq 1,000 ML IV SCH (05:27)
--- NOTE | 2017-11-20 08:35 | XRay Report ---
INDICATION: Post pacemaker PROCEDURE: CHEST 2-VIEWS UPRIGHT (PA & LAT) Encounter: Initial COMPARISON: November 19, 2017 FINDINGS: Left cardiac pacemaker is stable in position. No pneumothorax. Increasing diffuse interstitial prominence. Heart size and mediastinal contours are stable. Impression: No pneumothorax. Moderate pulmonary edema. .
[2017-11-20] MEDS ORDERED: CLOPIDOGREL 75 MG TABLET PO SCH (09:00)
[2017-11-20] MEDS: ALBUTEROL/IPRATROPIUM 2.5mg-0.5mg/3ml NEB AEROSOL SCH ×3 (09:14→16:49)
--- NOTE | 2017-11-20 09:45 | CT Scan Report ---
Indication: lethargic PROCEDURE: CT head/brain wo con: Encounter: Initial Comparison: Brain MRI dated November 18, [address] dated November 17, 2017 Technique: Axial CT images through the head were performed without contrast. Iterative Reconstruction dose reducing technique was utilized. FINDINGS: Left caudate and basal ganglia infarcts shows slight increase in surrounding vasogenic edema and a little bit more mass effect upon the anterior horn left lateral ventricle. No evidence of hemorrhagic transformation. No acute intracranial hemorrhage or midline shift. Old right basal ganglia infarct is redemonstrated. No new areas of territorial stroke appreciated. No calvarial fracture. Impression: Expected interval evolution of the left basal ganglia infarct with slight increase in vasogenic edema but no evidence of hemorrhagic transformation. .
[2017-11-20] MEDS: AMOXICILLIN 500 MG CAPSULE PO SCH (10:24)
[2017-11-20] MEDS: CLOPIDOGREL 75 MG TABLET PO SCH (10:24)
[2017-11-20 12:13] VITALS: BP 140/80; TEMP 95.5
[2017-11-20 13:20] VITALS: RESP 24
[2017-11-20 13:39] VITALS: O2SAT 95
--- NOTE | 2017-11-20 14:06 | Progress Note ---
- Date 11/20/17 Subjective: Patient is seen sitting up in bed. Initially when I went in she was awake and filling out papers. She was able to tell me her name. Within 30 seconds of my arrival, she fell asleep. She did not respond to questions thereafter. Objective Vital signs: Temperature 95.5 F L 11/20/17 12:10 Pulse Rate 90 11/20/17 13:37 Respiratory Rate 24 11/20/17 13:37 Blood Pressure 140/80 H 11/20/17 12:10 Pulse Oximetry 95 11/20/17 13:37 Rhythm: Atrial Fibrillation with RVR Height/Weight/BMI: Weight 110.3 kg - Constitutional Present: no acute distress, well nourished, well developed, obese - Routine HEENT Exam Head: Present: normocephalic, atraumatic - Routine Respiratory Exam Absent: wheezes Comments: Coarse sounds anteriorly - Routine Cardiovascular Exam Present: no murmur, irregular rhythm Comments: A. fib with controlled rate - Routine Abdominal Exam Present: soft, non distended, non tender - Routine Extremities Exam Present: no edema, normal capillary refill - Routine Skin Exam Present: dry, warm - Routine Neurological Exam Absent: alert - Routine Lymphatic Exam Lymphatic: Absent: adenopathy - Routine Psychiatric Exam Present: unable to assess Results - Labs CBC & Chem 7: 11/20/17 04:02 11/20/17 04:02 - Imaging and Cardiology CT scan - head Additional comments: Date of Exam: 11/20/17 Indication: lethargic PROCEDURE: CT head/brain wo con: FINDINGS: Left caudate and basal ganglia infarcts shows slight increase in surrounding vasogenic edema and a little bit more mass effect upon the anterior horn left lateral ventricle. No evidence of hemorrhagic transformation. No acute intracranial hemorrhage or midline shift. Old right basal ganglia infarct is redemonstrated. No new areas of territorial stroke appreciated. No calvarial fracture. Impression: Expected interval evolution of the left basal ganglia infarct with slight increase in vasogenic edema but no evidence of hemorrhagic transformation. Assessment and Plan (1) Symptomatic bradycardia Status: Acute (2) CVA (cerebral vascular accident) Problem details: Acute ischemic left MCA stroke involving caudate head and lentiform nucleus Status: Acute Assessment and Plan: ADMISSION DIAGNOSES Acute ischemic stroke - Acute left MCA territory infarct involving the caudate head and lentiform nucleus. New onset a-fib with slow ventricular response and symptomatic bradycardia Pacemaker insertion 11/19/17-Dr. Up Aphasia Dysphagia Acute encephalopathy Left otitis media MR/TR/pulmonary hypertension Diastolic dysfunction by echocardiogram. COMORBIDITIES Cerebral vascular disease with prior history of stroke HTN COPD/asthma Tobacco use Obesity with BMI 37.[address] head showed evolution of stroke but no new findings. Will require initiation of anticoagulation in approximately one week due to development of stroke in conjunction with A. fib. Discontinue Plavix/aspirin at that time Echocardiogram completed, report demonstrated left atrial enlargement, valvular calcification, moderate to severe MR, moderate TR, severe pulmonary hypertension , and normal LV systolic function. Pending discharge to IRU after therapy evaluates. DVT Prophylaxis: SCD's, Lovenox Resuscitation Status: Full Code - Physician Narrative Physician: Oksana Turcios MD Narrative: Date: 11/20/17 Time: 2109 I have independently evaluated and examined this patient. I reviewed the chart, the patient's history, and the SAFETY SITTER/PA's documented findings as above. We discussed and formulated the assessment and plan as above with additions as below: Mrs. Borjas was focused on eating lunch when I saw her and could not be redirected to respond to questions. She did tell me that she hurts all over and that this is chronic, she denied lightheadedness, nausea, or dyspnea. She denied difficulty swallowing although coarse respirations persist. Patient remains inattentive although speech is a little more fluent when she chooses to respond. She initially told me she was at "[facility]" when asked where she was but [facility]; she could not identify the city or the year. MAEW Coarse breath sounds CT head reviewed by myself, increased edema and previously identified stroke without shift of the midline. No hemorrhage. Stable for discharge to IRU. Please refer to discharge summary. Hospital Course Summary Disclaimer: The visit summary below is not to be considered part of the above Progress Note. Hospital Course: 11/17/17 Admit, observation status, under the hospitalist service. Stroke workup: MR brain, carotid Doppler, echocardiogram, lipid panel. She has been on ASA, though was unable to verify if she takes it frequently. Will hold on restarting lisinopril/HCTZ to allow for permissive HTN. Consult PT/ OT/ST. A-fib with bradycardia: echo as above, consult Dr. Up, CHADSVASc= 5. Suspect we should consider this as ASA failure and with new onset A-fib, we may need to move directly to anticoagulation. Start Amoxicillin for left otitis; spouse reports that she puts cotton in her ear year-round, though pt reports that pain just started yesterday. DuoNeb QID for wheezing/COPD. Consult RT for tobacco cessation counseling; nicotine patch PRN. Care to return to Dr Solano at time of discharge from [facility] [place]. 11/18/17 MRI confirmed acute MCA infarct. Still encephalopathic; remains in a-fib. Will obtain carotid dopplers. Lipid panel drawn this am; echo pending. Continue Plavix; Will discuss anticoagulation with Dr. Up. OT recommending home with home health but PT felt she would benefit from skilled IP PT. Speech therapy recommends a soft diet and nectar thick liquids; a formal communication evaluation, and swallow study if there are s/s of aspiration. Will order communication evaluation. Status changed to inpatient. IRU screen ordered. 11/19/17 Pacemaker placed today; continue to monitor on telemetry overnight. Anticipate discharge to IRU tomorrow for continued therapy post stroke. Will require initiation of anticoagulation in approximately one week due to development of stroke in conjunction with A. fib. Discontinue Plavix at that time. Echocardiogram completed, demonstrated left atrial enlargement, valvular calcification, moderate to severe MR, moderate TR, severe pulmonary hypertension , and normal LV systolic function. Coarse respiratory sounds but no focal findings on o-wgu-mtrpbli aspirating, continue speech therapy and will likely require modified barium swallow. Sodium and potassium borderline-half normal saline with KCl initiated. 11/20/17 CT head showed evolution of stroke but no new findings. Pending discharge to IRU after therapy evaluates.
[2017-11-20 14:47] VITALS: PULSE 78
[2017-11-20] MEDS: ENOXAPARIN 40 MG/0.4 ML INJECTION SQ SCH ×2 (14:57→14:58)
[2017-11-20] MEDS ORDERED: LISINOPRIL 2.5 MG TABLET PO SCH (16:15)
[2017-11-20] MEDS ORDERED: FUROSEMIDE 20 MG/2 ML INJECTION IVP ONE (16:15)
[2017-11-20] MEDS ORDERED: CARVEDILOL 3.125 MG TABLET PO SCH (17:30)
--- NOTE | 2017-11-20 21:24 | Discharge Summary ---
Discharge Information Date of admission: 11/18/17 10:06 Anticipated date of discharge: 11/20/17 Attending Physician: Oksana Turcios MD Primary care physician: Júnior Solano MD Consults: Rhonda Tanner M. Saad - Discharge Diagnosis (1) CVA (cerebral vascular accident) Status: Acute (2) Symptomatic bradycardia Status: Acute Acute ischemic stroke - Acute left MCA territory infarct involving the caudate head and lentiform nucleus. New onset a-fib with slow ventricular response Symptomatic bradycardia Aphasia Dysphagia Acute encephalopathy Left otitis media MR/TR/pulmonary hypertension Diastolic dysfunction by echocardiogram. - Procedures Procedures: Echocardiogram on 11/17/17: 1. Left atrial enlargement. 2. The patient is in atrial fibrillation throughout the study. 3. Normal LV size and systolic function. EF 70% 4. Diastolic dysfunction. 5. Calcification of the aortic and mitral valves as described above. 6. Mild aortic regurgitation. 7. Qwxtxnur-[id number]-lmrbwr mitral regurgitation (eccentric jet directed posteriorly) . 8. Moderate tricuspid regurgitation. 9. Mild pulmonic insufficiency. 10. Severe pulmonary hypertension. 11. No evidence of intracardiac masses, thrombi, vegetations or shunts. 12. It should be noted with the left atrial enlargement and underlying atrial fibrillation, a cardiac source of embolus should still be considered even without a visible left atrial thrombus on 2-D echocardiogram. Pacemaker insertion (single-chamber) 11/19/17-Dr. Up - Laboratory Labs: 11/20/17 04:02 11/20/17 04:02 Total cholesterol 119, triglycerides 99, LDL 61, HDL 38 on 11/18/17 TSH 1.86 on 11/18/17 - Radiology Radiology: CT of the head without contrast on 11/17/17: Hypodensity is seen at the anterior limb of the left internal capsule and may involve the caudate nucleus and left putamen as well. This may represent a developing lacunar infarct although the age is indeterminate. There is an area of hypodensity at the superior right putamen which may represent an old lacunar infarct. There is extension into the right periventricular deep matter and was present on prior exam. The CSF spaces are prominent likely related to atrophy in keeping with age. Periventricular deep white matter hypodensities are noted likely related to small vessel ischemic disease. The suprasellar cistern and quadrigeminal plate cisterns are intact. The de la garza-white junctions are distinct. No sulcal effacement is identified. The posterior fossa and brainstem region appear unremarkable. There is no evidence for midline shift or mass effect. The midline structures appear unremarkable. No osseous abnormalities are identified. The paranasal sinuses and mastoid air cells are clear. IMPRESSION: 1. Atrophy in keeping with age. 2. Periventricular deep white matter hypodensities are noted likely related to small vessel ischemic disease. 3. Hypodensity is seen within the left internal capsule and caudate nucleus and putamen which may represent a lacunar infarct which was not present on prior exam although the age is indeterminate. 4. Right putamen lacunar infarct again noted which was present on prior exam. ----- Portable chest x-ray on 11/17/17 demonstrated heartbeat upper limits normal in size and lungs were clear. Follow-up chest x-rays on 11/19 demonstrated placement of a left-sided single lead pacemaker with a right ventricular lead and no pneumothorax; mild interstitial prominence/edema. Final film on 11/20 demonstrated increased vascular markings and possible pulmonary edema. ----- Carotid Dopplers on 11/17/17 demonstrated mild atherosclerotic plaquing with velocities consistent with less than 50% stenosis in the ICAs. Vertebral arteries not well evaluated. ----- MRI of the brain without contrast on 11/18/17: Motion artifact. Region of acute diffusion restriction involving the left caudate head and lentiform nucleus. This area has expected T2/FLAIR hyperintensity and causes mild mass effect upon the left lateral ventricle. No hydrocephalus. Old lacunar infarcts in the right basal ganglia. There are small nonspecific punctate areas of T2-weighted and T2 FLAIR weighted signal abnormality in the deep frontoparietal white matter that most likely represent small vessel ischemic disease. The brain stem, cerebellum, and cerebral hemispheres otherwise have a normal morphologic appearance as well as MR signal intensity on all pulse sequences. There is no evidence of an intracranial mass lesion, intracranial hemorrhage, or hydrocephalus. The visualized portions of the orbits, calvarium, paranasal sinuses, and skull base demonstrate no significant abnormality. IMPRESSION: Acute left MCA territory infarct involving the caudate head and lentiform nucleus. ----- Noncontrast CT of the head on 11/20/17: Left caudate and basal ganglia infarcts shows slight increase in surrounding vasogenic edema and a little bit more mass effect upon the anterior horn left lateral ventricle. No evidence of hemorrhagic transformation. No acute intracranial hemorrhage or midline shift. Old right basal ganglia infarct is redemonstrated. No new areas of territorial stroke appreciated. No calvarial fracture. Impression: Expected interval evolution of the left basal ganglia infarct with slight increase in vasogenic edema but no evidence of hemorrhagic transformation. History of Present Illness HPI: Lizzy Borjas is a 67 year old woman who was taken to [facility] ED by her for further evaluation of confusion. The patient has delayed responses and was not consistently a good historian; therefore, hx was obtained primarily from her spouse and previous records. She reportedly has been in her typical state of health until this morning, when she was lethargic, difficult to rouse, and confused. She complained of chest pain in the ED but denied it during this interview. She admits to having some difficulty swallowing but denied any headache, visual changes, paresthesias, dizziness, or unilateral weakness. Her stated that her gait was steady this morning. No fever/chills, cough/ congestion, or SOA though states that she wheezes on occasion. She denies abdominal pain, n/v/d/c, or urinary problems. In the ED, she was noted to be in a-fib with a slow ventricular response, with rates as low as 36. She does not have a history of a-fib. Head CT showed a Hypodensity is seen within the left internal capsule and caudate nucleus and putamen which may represent a lacunar infarct which was not present on prior exam although the age is indeterminate; and an old right putamen lacunar infarct. Labs were unremarkable. In light of her acute encephalopathy, possible stroke, and symptomatic bradycardia, she was admitted under the hospitalist service. Objective Vital signs: Temperature 95.5 F L 11/20/17 12:10 Pulse Rate 78 11/20/17 14:46 Respiratory Rate 24 11/20/17 13:37 Blood Pressure 140/80 H 11/20/17 12:10 Pulse Oximetry 95 11/20/17 13:37 Patient remains inattentive although speech is a little more fluent when she chooses to respond. She initially told me she was at "[facility]" when asked where she was but [facility]; she could not identify the city or the year. AMARI Coarse breath sounds Height/Weight/BMI: Weight 110.2 kg Hospital Course This is a general summary of the patient's hospital course. For more details refer to the complete medical record. Hospital course: 11/17/17 Admit, observation status, under the hospitalist service. Stroke workup: MR brain, carotid Doppler, echocardiogram, lipid panel. She has been on ASA, though was unable to verify if she takes it frequently. Will hold on restarting lisinopril/HCTZ to allow for permissive HTN. Consult PT/ OT/ST. A-fib with bradycardia: echo as above, consult Dr. Up, CHADSVASc= 5. Suspect we should consider this as ASA failure and with new onset A-fib, we may need to move directly to anticoagulation. Start Amoxicillin for left otitis; spouse reports that she puts cotton in her ear year-round, though pt reports that pain just started yesterday. DuoNeb QID for wheezing/COPD. Consult RT for tobacco cessation counseling; nicotine patch PRN. Care to return to Dr Solano at time of discharge from [facility]. 11/18/17 MRI confirmed acute MCA infarct. Aphasic; remains in a-fib. Will obtain carotid dopplers. Lipid panel drawn this am; echo pending. Continue Plavix; Will discuss anticoagulation with Dr. Up. OT recommending home with home health but PT felt she would benefit from skilled inpatient PT. Speech therapy recommends a soft diet and nectar thick liquids; a formal communication evaluation, and swallow study if there are s/s of aspiration. Will order communication evaluation. Status changed to inpatient. IRU screen ordered. 11/19/17 Pacemaker placed today; continue to monitor on telemetry overnight. Anticipate discharge to IRU tomorrow for continued therapy post stroke. Will require initiation of anticoagulation in approximately one week due to development of stroke in conjunction with A. fib. Discontinue Plavix at that time. Echocardiogram completed, demonstrated left atrial enlargement, valvular calcification, moderate to severe MR, moderate TR, severe pulmonary hypertension , and normal LV systolic function. Coarse respiratory sounds but no focal findings on [id number] aspirating, continue speech therapy and will likely require modified barium swallow. Sodium and potassium borderline-half normal saline with KCl initiated. 11/20/17 Nursing reported some increased confusion and decreased responsiveness early today prompting repeat head CT. CT head showed evolution of stroke but no new findings. Remains inattentive and persistent evidence of aphasia and dysphasia. Patient denies difficulty swallowing or dyspnea however. Stable to transfer to IRU as per therapy recommendations. Chest x-ray with increased vascular markings and mild dyspnea reported late in the day prompting discontinuation of IV fluids and single dose Lasix administration. Blood pressure has been adequately controlled throughout the hospitalization, low-dose lisinopril and carvedilol initiated per cardiology prior to transfer. Patient will remain on Plavix for an additional 7-10 days before warfarin is initiated. Will require long-term anticoagulation due to embolic stroke. Discharged on statin and Plavix for acute stroke management in conjunction with Lovenox and SCDs for DVT prophylaxis. Time spent with patient: discharge greater than 30 minutes Resuscitation Status: Full Code Discharge Plan - Discharge Disposition Discharge Date: 11/20/17 Disposition: 62 To [facility] INPT Rehab *Condition: Stable Reason For Visit (Visit label in EMR): altered mentsl status/aphasia - Discharge Medications *Discharge Medications: New Albuterol/Ipratropium [Duoneb] 3 ml AEROSOL RTQID each Amoxicillin 1,000 mg PO Q12HR cap Clopidogrel [Plavix] 75 mg PO DAILY tab Nicotine Patch [Nicoderm] 21 mg TD DAILY PRN patch PRN Reason: nicotine craving Enoxaparin Sodium [Lovenox] 40 mg SQ DAILY syringe Continue Simvastatin 20 mg PO HS #0 Discontinued Baclofen [Lioresal] 10 mg PO HS Aspirin [Aspirin EC] 81 mg PO DAILY Cetirizine HCl [Zyrtec] 10 mg PO DAILY Meloxicam 7.5 mg PO BID #0 Lisinopril/Hctz 20/25 [Prinzide 20/25] 1 tab PO DAILY No Action Nicotine Patch Removal 1 removal TD DAILY PRN PRN Reason: Prn Orders Saline Flush [IV Flush] 10 ml IV PRN PRN PRN Reason: Flushing Ondansetron Inj [Zofran] 4 mg IVP Q6H PRN PRN Reason: Nausea Acetaminophen [Tylenol] 1,000 mg PO Q5H PRN PRN Reason: Pain - Discharge Packet/Instructions *Diet: Cardiac-pureed with syrey thickened liquides *Activity: Do not raise arm on affected side above shoulder for 2 weeks. No swimming. No large arm swings such as golf *Pain Management/Treatment: Tylenol 650mg every 6 hours. See prescription *Wound Care: Open to air. No shower for 5 days. Sponge bath is ok. Leave steri-strips on for 30 days. Keep pacemaker site dry and clean Additional Instructions: continue 1/2 NS with 20 meq KCL at 75 ml/hr on transfer *Expected Signs/Symptoms: Mild pain and bruising *Notify Physician if: Severe pain, redness, drainage, fever or chills, chest pain (not including incision pain), shortness of air or severe swelling *During Business Hours Contact: Please call the physician's office at [phone] *After Business Hours Contact: Please call [phone] and have the automatic casting machine operator page the physician. *Pending Lab/Results: No Pending Lab - Referrals/Follow Up - Patient Handouts Patient Handouts: [facility] Heart Cath Trans Rad, Pacemaker (DC) - Dismissal Complete Discharge Instructions are:: Complete Physician Narrative - Narrative Attestation Narrative: Date: 11/20/17 Time: 2116
== END 2017-11-20 16:00 | DRG 40 ==
LOC: SRG 09:21 → ED 09:21 → SUATTDRO 11:21 → SRG 12:01
PROVIDERS: ADMIT Hospitalist; ATTEND Internal Medicine

== ENCOUNTER 2017-11-20 16:10 | Inpatient (IN) ==
--- NOTE | 2017-11-20 16:46 | IRU History & Physical Report ---
HPI IRU Date: Date: 11/20/17 Time: 1642 Chief complaint: I had a stroke HPI: Ms. Borjas is a pleasant 67-year-old female referred by Dr. Oksana Turcios. Her primary care provider is Dr. Júnior Solano. She presented to the emergency department on 11/17/2017 due to significant confusion and difficulty waking up. She had gone to bed normally the previous evening but on the morning of admission her had difficulty awakening her. She did not know the date nor the date. She also reported history of chest pain although none at the time of admission. She was noted to have atrial fibrillation with bradycardia. She was admitted as an outpatient for observation. Head CT scan demonstrated a hypodensity within the left internal capsule and caudate nucleus and putamen consistent with a lacunar infarct. She was felt to have suffered an acute ischemic stroke with new onset atrial fibrillation with slow ventricular response with symptomatic bradycardia. She had evidence of acute encephalopathy. Dr. Up was consulted who ultimately placed a pacemaker due to the symptomatic bradycardia on November 19, 2017. MRI of brain without contrast on November 18 demonstrated acute left middle cerebral artery territory infarct involving caudate head and lentiform nucleus. Carotid Doppler studies failed to reveal evidence of significant stenoses. Echocardiogram demonstrated normal contractility but with severe pulmonary hypertension estimated at around 74 mmHg. She was in atrial fibrillation. Left ventricular size was normal. Left ventricular systolic function was normal with ejection fraction 70%. There was evidence of mild aortic regurgitation, moderate to severe mitral regurgitation and moderate tricuspid regurgitation. There is also left atrial enlargement. Follow-up CT of the head on November 20 demonstrated the expected interval evolution of left basal ganglia infarct with some slight increase in vasogenic edema but no evidence of hemorrhage. At the present time she is on Plavix with anticipation of switching to anticoagulation in the form of Xarelto or similar in about a week. She has had some difficulty swallowing and is followed by speech therapy as well. Patient displays evidence of expressive dysphasia. She is slow to respond. When I asked her how much alcohol she drinks she used her right hand to pretend she was writing on her thigh to determine how much. She never did answer me otherwise. According to her brother who is with her in the examination room, he states that ever since she has been a teenager when she has been under stress she will "clam up" and not speak for a time. Prior level of functioning is as follows: She was independent for all activities except for bed/chair/wheelchair transfers which were performed with modified independent level. Current level of functioning is as follows: Grooming is modified independent, toileting is supervision level. Bed/chair/wheelchair transfers are performed with moderate assistance. Toilet transfers and walking is with minimum assistance. She displays evidence of expressive dysphasia. Patient lives in her own home with her . She did not use an assistive device prior to the current episode. The following medical conditions are noted and require active monitoring and/or management: 1. Acute ischemic stroke likely embolic involving left middle cerebral artery and resulting in multiple functional deficits. 2. Hypertension 3. New diagnosis of atrial fibrillation with slow ventricular response requiring new placement of permanent pacemaker. Patient currently is on Plavix and will be switched to Xarelto or similar if she is stable in about a week. 4. Hypertension 5. COPD with severe pulmonary hypertension at 74 mmHg 6. Chronic tobacco use: reports smoking between 10/09 - The following therapies will be needed: 1. Physical therapy: for transfers and ambulation and stairs. 2. Occupational therapy: for ADL's and transfers. 3. Medical management: for the above conditions. 4. 24 hour Rehabilitation Nursing to monitor and address the following: Neurologic status, pulmonary status, cardiac rhythm and blood pressure 5. Speech therapy: To assess and monitor swallowing as well as cognition/ linguistic capabilities. [facility] Patient Stated Medical History Cerebrovascular Accident Yes Cardiac Arrhythmia Yes: BRADYCARDIA Hypertension Yes Chronic Obstructive Pulmonary Yes Disease (COPD) Hx Incontinence Yes Other Musculoskeletal Yes: takes muscle relaxer "to help me get up and down" Other Yes: pt sohail historiancory incomplete Medical History Updates: Prior CVA 2011. Hypertension. Hyperlipidemia Family History: Family History (Last Updated 11/19/17 @ 16:36 by Oksana Turcios MD) Father CAD (coronary artery disease) Mother CAD (coronary artery disease) Maternal Aunt CAD (coronary artery disease) Leukemia Maternal Uncle CAD (coronary artery disease) Leukemia Maternal Grandfather CVA (cerebral vascular accident) Maternal Grandmother CVA (cerebral vascular accident) Brother A-fib - Social History Smoking status: Current every day smoker Packs per day: 0.5 (started age 16) Alcohol intake: current (patient unable to state how much she consumes.) Housing: house Household members: spouse Current occupational status: unemployed Current residence: Apartment/Private Home Social history: Patient lives with her in their own home. 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 Review of Systems - Constitutional Constitutional: Present: fatigue, lethargy. Absent: anorexia, chills, fever(s) , headache(s), malaise, night sweats, weakness, weight gain, weight loss - EEHIT Eyes: Absent: blurry vision, change in vision, diplopia Mouth/Throat: Absent: changes in swallowing, painful swallowing, change in taste , bleeding gums, change in voice - Cardiovascular Cardiovascular: Absent: chest pain, palpitations, syncope, dyspnea on exertion, orthopnea, edema, cyanosis, heart murmur Rhythm: Present: abnormal rhythm Vascular: Absent: intermittent claudication, pedal edema, unilateral swelling - Respiratory Respiratory: Absent: cough, dyspnea, hemoptysis, dyspnea on exertion, wheezing, pain on inspiration, chest congestion, excessive phlegm production - Gastrointestinal Gastrointestinal: Present: diarrhea. Absent: abdominal pain, change in bowel habits, constipation, dyspepsia, dysphagia, early satiety, hematochezia, melena , nausea, vomiting - Genitourinary Genitourinary: Present: urinary incontinence - Musculoskeletal Musculoskeletal: Present: abnormal gait, muscle weakness. Absent: arthralgias, back pain, joint swelling, limited range of motion - Integumentary/Breasts Integumentary: Absent: alopecia, erythema, lesions, pruritus, rash, jaundice - Neurological Neurological: Present: confusion, memory loss, weakness. Absent: abnormal gait , abnormal movements, abnormal speech, convulsions, dizziness, focal weakness, frequent falls, headache(s), loss of vision, numbness, paresthesias, tremor(s) - Psychiatric Psychiatric: Absent: abnormal sleep pattern, anxiety, depression - Endocrine Endocrine: Absent: cold intolerance, flushing, heat intolerance, palpitations - Hematologic/Lymphatic Hematologic/Lymphatic: Absent: easy bleeding, easy bruising, lymphadenopathy - Allergic/Immunologic Allergic/Immunologic: Absent: urticaria Medications Home Medications Medication Instructions Recorded Confirmed Type Simvastatin 20 mg PO HS #0 03/17/13 11/18/17 History Trazodone [Desyrel] 50 mg PO HS 11/17/17 11/17/17 History Allergies Allergy/AdvReac Type Severity Reaction Status Date / Time cortisone Allergy Mild RED Verified 11/19/17 23:22 neomycin Allergy Mild RED Verified 11/19/17 23:22 Sulfa (Sulfonamide Allergy Mild ITCH Verified 11/19/17 23:22 Antibiotics) Results IRU - Labs Labs: I reviewed extensive inpatient records. Exam - Constitutional Present: no acute distress, well nourished, well developed, average body habitus , cooperative Comments: Patient is slow to respond verbally. At times she will stop speaking as though she is contemplating what to say next. Speech is not slurred. - Routine HEENT Exam Head: Present: normocephalic. Absent: atraumatic (patient has an excoriation in the glabellar area.), cushingoid faces, abrasion, laceration, hematoma Eye: Present: EOMI, PERRL (pupils are somewhat small but equal bilaterally.). Absent: conjunctival icterus, scleral injection, periorbital swelling, nystagmus ENT: Present: mucous membranes moist, oropharynx clear. Absent: dentition normal (numerous missing teeth particularly in the maxilla.) - Routine Neck Exam Present: supple, full ROM, trachea midline. Absent: lymphadenopathy, thyromegaly, tenderness, swelling - Routine Chest/Breast/Axilla Exam Chest wall: Absent: tenderness, mass Axillae: Absent: lymphadenopathy, mass - Routine Respiratory Exam Present: CTA bilaterally. Absent: accessory muscle use, decreased breath sounds , prolonged expiratory phase, rales, respiratory distress, rhonchi, stridor, wheezes, crackles, distant breath sounds - Routine Cardiovascular Exam Present: RRR, S1, S2, murmur. Absent: gallop, S3, S4, click, irregular rhythm - Routine Abdominal Exam Present: soft, normoactive bowel sounds, non distended, non tender. Absent: rebound, guarding, firm, rigid, organomegaly, mass, hernia, wound - Routine Extremities Exam Present: no edema, non tender, pulses intact, normal capillary refill. Absent: cyanosis, clubbing - Routine Back/Spine/Pelvis Exam Back/Spine: Present: full ROM. Absent: scoliosis, kyphosis - Routine Skin Exam Present: intact, dry, warm, wounds (pacemaker site left upper chest unremarkable.). Absent: cyanosis, erythema, pallor, mottling, petechiae, urticaria, lesions, jaundice - Routine Neurological Exam Present: alert, CN II-XII intact, moving all extremities, normal speech. Absent : oriented X3 (difficult to ascertain her degree of orientation. Speech is slow. ), facial asymmetry (no facial droop identified.) She appears to have relatively good strength bilaterally in the lower extremities. Left arm is in a sling due to the recent pacemaker. Right arm strength and fine motor movement appears to be adequate. - Routine Psychiatric Exam Present: normal affect, normal thought process, cooperative, good insight, good judgment. Absent: depressed, anxious Sepsis Assessment - Evaluation Severe Sepsis: none seen IRU A/P (1) CVA (cerebral vascular accident) Qualifiers: CVA mechanism: embolism Precerebral and cerebral artery: middle cerebral artery Laterality of affected vessel: left Qualified Code(s): I63.412 - Cerebral infarction due to embolism of left middle cerebral artery Problem details: Acute ischemic left MCA stroke involving caudate head and lentiform nucleus Current visit: No Status: Acute Patient is status post acute left middle cerebral artery distribution CVA. Likely this was embolic from atrial fibrillation. She has sustained multiple functional deficits. (2) Atrial fibrillation with slow ventricular response Current visit: Yes Status: Acute Patient currently is on Plavix. Anticipation is that this will be changed to Xarelto or similar in a week or 2 if she is stable. Currently has a pacemaker in place and functioning normally. We will monitor carefully on telemetry. (3) S/P cardiac pacemaker procedure Current visit: Yes Status: Acute Pacemaker placed 11/19/2017. Pacemaker site is unremarkable. We will monitor on telemetry. (4) COPD (chronic obstructive pulmonary disease) Qualifiers: COPD type: emphysema Emphysema type: unspecified Qualified Code(s): J43.9 - Emphysema, unspecified Current visit: Yes Status: Chronic Has evidence of COPD chronically. (5) Pulmonary hypertension Current visit: Yes Status: Chronic Pulmonary pressure estimated at over 70 mmHg by echocardiogram. (6) Altered mental status Qualifiers: Altered mental status type: unspecified Qualified Code(s): R41.82 - Altered mental status, unspecified Current visit: No Status: Acute She was admitted with acute confusion. She continues to have slowness to respond to questions. DVT Prophylaxis: SCD's, Lovenox Resuscitation Status: Full Code - Course Hospital Course: Barry Dowling MD: - Interventions to Obtain Goals PT Treatment Plan: Balance/Proprioception, Functional Activities, Gait Training , Patient/Family Education, Therapeutic Exercise OT Treatment Plan: ADL (Basic Care), Balance Training, Coginitive Skills Development, Pt./Family Education Goals Progress/Modifications: Patient is medically complex and will require a multidisciplinary approach to include PT, OT and speech therapy. We will monitor her blood pressure and heart rhythm carefully as well as observe for neurologic decline.
--- NOTE | 2017-11-20 16:55 | IRU 24Hr Post Admit Eval ---
24 Hr Post Admission Physical - Relevant Changes Relevant Changes: No Reviewed: I have reviewed the patient's information and concur with the finding and results of the pre-admission screen. Certification: I certify the patient for rehabilitation. - Patient Condition (1) CVA (cerebral vascular accident) Status: Acute Qualifiers: CVA mechanism: embolism Precerebral and cerebral artery: middle cerebral artery Laterality of affected vessel: left Qualified Code(s): I63.412 - Cerebral infarction due to embolism of left middle cerebral artery Code(s): I63.9 - Cerebral infarction, unspecified Classification: Present on IRF Admission, IRF Tx That Should Address Diagnosis, Diagnosis Requiring Medical Follow Up (2) Atrial fibrillation with slow ventricular response Status: Acute Code(s): I48.91 - Unspecified atrial fibrillation Classification: Present on IRF Admission, IRF Tx That Should Address Diagnosis, Diagnosis Requiring Medical Follow Up (3) S/P cardiac pacemaker procedure Status: Acute Code(s): Z95.0 - Presence of cardiac pacemaker Classification: Present on IRF Admission, IRF Tx That Should Address Diagnosis, Diagnosis Requiring Medical Follow Up (4) COPD (chronic obstructive pulmonary disease) Status: Chronic Qualifiers: COPD type: emphysema Emphysema type: unspecified Qualified Code(s): J43.9 - Emphysema, unspecified Code(s): J44.9 - Chronic obstructive pulmonary disease, unspecified Classification: Present on IRF Admission, Diagnosis Requiring Medical Follow Up (5) Pulmonary hypertension Status: Chronic Code(s): I27.2 - Other secondary pulmonary hypertension Classification: Present on IRF Admission, Diagnosis Requiring Medical Follow Up (6) Altered mental status Status: Acute Qualifiers: Altered mental status type: unspecified Qualified Code(s): R41.82 - Altered mental status, unspecified Code(s): R41.82 - Altered mental status, unspecified Classification: Present on IRF Admission, IRF Tx That Should Address Diagnosis, Diagnosis Requiring Medical Follow Up - Prior Functional Status Lives With: Spouse Residence Type: Apartment/Private Home Assitive Devices: None Prior Functional Status: Indep. at home or school - Current Functional Status Current Level of Function: Current level of functioning is as follows: Grooming is modified independent, toileting is supervision level. Bed/chair/wheelchair transfers are performed with moderate assistance. Toilet transfers and walking is with minimum assistance. She displays evidence of expressive dysphasia. Failed Alternative Therapy: Arrived from Acute Care Patient Requirements: The patient requires oversight by rehabilitation physician to manage their rehabilitation treatment plan and multidisciplinary approach to care that can only be provided in an IRF and requires a multidisciplinary approach to care, provided by professional PTs, OTs, STs, dieticians, RTs, rehabilitation nurses and is not available in lesser levels of care. Limitations Req: Mobility Impairment, ADL Impairment, Limited Mobility, Cognitive Impairment Speech Therapy Minutes: 60 Physical Therapy Minutes: 60 Occupational Therapy Minutes: 60 Therapy: The patient is to receive therapy at least 5 days a week. - Complications/Comorbidities Impact on Functional Outcomes: Patient's cognition will likely impact her functional outcome. Barriers to Discharge: Weakness, Balance, Endurance, Comprehension, Medical Limitation (recent CVA and recent placement of pacemaker.) - Plan to Avoid Complications Plan to Avoid Complications: The patient cannot receive this care in a lesser intensive setting such as [facility] or Outpatient Therapy due to the patient requiring the following : She will require close 24-hour nursing rehabilitation monitoring of her blood pressure, heart rhythm and neurologic status. She has had a recent pacemaker placed. She has had recent CVA which will require the multidisciplinary efforts of PT, OT and speech therapy to allow her to return to her previous level of functioning. This all requires medical supervision as well.
[2017-11-20 16:57] VITALS: BMI 36.1
[2017-11-20] MEDS ORDERED: ONDANSETRON 4 MG/2 ML INJECTION IVP PRN (17:25)
[2017-11-20] MEDS ORDERED: NICOTINE 21 MG PATCH TD PRN (17:25)
[2017-11-20] MEDS ORDERED: NICOTINE PATCH REMOVAL TD PRN (17:25)
[2017-11-20] MEDS ORDERED: FUROSEMIDE 20 MG/2 ML INJECTION IVP ONE ×2 (17:25)
--- NOTE | 2017-11-20 17:53 | Cardiology Progress Note ---
Subjective Interval history: Pt is doing well this afternoon - sitting on edge of bed and just finished with therapies. Pt is currently wearing sling. Pt has no complaints. Pt denies pain, angina, palpitations, dyspnea. Pt is comfortable and on room air at 95% despite CXR findings of mild pulm edema - no respiratory distress. PPM check this afternoon is good - normal function. EKG without magnet: a fib with no acute changes. EKG with magnet: V paced. pt is being transferred to inpatient rehab ,Dr Dowling . Exam Vital signs: Temperature 99.1 F 11/20/17 16:20 Pulse Rate 83 11/20/17 16:20 Respiratory Rate 20 11/20/17 16:20 Blood Pressure 134/85 11/20/17 16:20 Pulse Oximetry 92 11/20/17 16:20 - Constitutional no acute distress, well developed, cooperative - Routine HEENT Exam Head: Present: normocephalic, atraumatic Eye: Present: EOMI, PERRL ENT: Present: mucous membranes moist - Routine Neck Exam Present: supple - Routine Chest/Breast/Axilla Exam Chest wall: Present: pacemaker (incision looks good ,no swelling erythema or discharge) - Routine Respiratory Exam Present: rhonchi (scattered) - Routine Cardiovascular Exam Present: irregularly irregular - Routine Abdominal Exam Present: soft, normoactive bowel sounds - Routine Extremities Exam Present: no edema. Absent: cyanosis, clubbing - Routine Skin Exam Present: intact (no sign of infection at PPM site). Absent: cyanosis - Routine Neurological Exam Present: alert, oriented X3, moving all extremities Results 11/21/17 04:44 11/24/17 04:54 Intake and Output 11/20/17 11/20/17 11/20/17 06:59 14:59 22:59 Other: Weight 107.8 kg Patient Weight 11/21/17 06:59 Weight 107.8 kg Assessment and Plan - Attestation Attestation Narrative: 11/20/17 17:49 symtpomatic bradycardia a fib s/p single chamber PPM POD#1 NL PPM FX mild pulm edema valvular heart disease ,3+ MR ischemic CVA, L MCA, suspect cardioembolic COPD IV Lasix and po kcl x1 coreg and lisinopril (low doses started) d/c IVF recommend close monitoring of fluid status , as she may need additional diuresis ,discussed with Vinnie and Nitesh. f/u in the office 2-3 wks 11/25/17 13:46 Hospital Course Summary Disclaimer: The visit summary below is not to be considered part of the above Progress Note.
[2017-11-20] MEDS: CARVEDILOL 3.125 MG TABLET PO SCH (18:43)
[2017-11-20] MEDS: LISINOPRIL 2.5 MG TABLET PO SCH (18:43)
[2017-11-20] MEDS: SALINE FLUSH 10ml SYRINGE IVF PRN (18:43)
[2017-11-20] MEDS: ENOXAPARIN 40 MG/0.4 ML INJECTION SQ SCH (20:40)
[2017-11-20] MEDS: AMOXICILLIN 500 MG CAPSULE PO SCH (20:40)
[2017-11-20] MEDS: SIMVASTATIN 20 MG TABLET PO SCH (20:41)
[2017-11-21] MEDS ORDERED: ENOXAPARIN 40 MG/0.4 ML INJECTION SQ SCH (09:00)
[2017-11-21] MEDS: CARVEDILOL 3.125 MG TABLET PO SCH ×2 (09:35→19:30)
[2017-11-21] MEDS: AMOXICILLIN 500 MG CAPSULE PO SCH ×2 (09:35→20:29)
[2017-11-21] MEDS: CLOPIDOGREL 75 MG TABLET PO SCH (09:35)
[2017-11-21] MEDS: LISINOPRIL 2.5 MG TABLET PO SCH (09:35)
--- NOTE | 2017-11-21 10:42 | IRU Progress Note ---
- Subjective/Serverity of Illness Date: 11/21/17 Ms. Borjas was evaluated in the gymnasium area at inpatient rehabilitation. She is cooperative with therapy. Continues to have a rather slow response. She specifically denies any chest pain or shortness of breath. Appetite is apparently adequate. From a therapy standpoint she was able to ambulate around 150 feet with contact- guard assist. She was unable to clearly state the words "[employer]." Denies any difficulty swallowing. I have reviewed the pacemaker interrogation by Dr. Up. Update on medical issues were actively monitoring or managing as follows: 1. Acute ischemic stroke likely embolic involving left middle cerebral artery and resulting in multiple functional deficits. She is settling into rehabilitation routine. 2. Hypertension: Blood pressures are reviewed and are reasonably well controlled. 3. New diagnosis of atrial fibrillation with slow ventricular response requiring new placement of permanent pacemaker: Pacemaker site unremarkable. Function appears to be normal. She has underlying atrial fibrillation with magnet. Currently on Plavix and will transition to his Xarelto or similar if stable in 1-2 weeks per cardiology. 4. COPD with severe pulmonary hypertension at 74 mmHg: She denies current shortness of breath. Does not have much in the way of a cough. 5. Chronic tobacco use: reports smoking between 10/09 - PPD Exam Vital Signs: Temperature 98.4 F 11/21/17 08:00 Pulse Rate 69 11/21/17 08:00 Respiratory Rate 12 11/21/17 08:00 Blood Pressure 124/85 11/21/17 08:00 Pulse Oximetry 92 11/21/17 08:00 Height/Weight/BMI: Height 1.73 m Weight 107.8 kg Body Mass Index 36.1 - Constitutional Present: no acute distress, well nourished, well developed, obese Comments: Slow to respond. - Routine HEENT Exam Head: Present: normocephalic, abrasion (glabellar area, apparently secondary to picking at the skin and not due to trauma otherwise.) Eye: Present: EOMI, PERRL ENT: Present: mucous membranes moist, oropharynx clear. Absent: dentition normal (numerous missing teeth.) - Routine Neck Exam Present: supple - Routine Respiratory Exam Present: decreased breath sounds. Absent: dyspnea, wheezes, crackles - Routine Cardiovascular Exam Present: RRR, S1, S2. Absent: murmur - Routine Abdominal Exam Present: soft, normoactive bowel sounds, non distended. Absent: tenderness - Routine Extremities Exam Present: no edema, normal capillary refill - Routine Skin Exam Present: dry, warm, wounds (pacemaker wound inspected. No evidence of inflammation nor infection nor bleeding.) - Routine Neurological Exam Present: alert, CN II-XII intact. Absent: oriented X3 (difficult to ascertain her orientation at present. Her speech is somewhat slow.), motor deficit ( strength appears to be adequate in the lower extremities. Left arm is in a sling so difficult to assess.) - Routine Psychiatric Exam Present: depressed (has a rather flat affect.). Absent: good insight, good judgment Results IRU - Labs Labs: Have reviewed chart data. IRU A/P (1) CVA (cerebral vascular accident) Qualifiers: CVA mechanism: embolism Precerebral and cerebral artery: middle cerebral artery Laterality of affected vessel: left Qualified Code(s): I63.412 - Cerebral infarction due to embolism of left middle cerebral artery Problem details: Acute ischemic left MCA stroke involving caudate head and lentiform nucleus Current visit: No Status: Acute Patient is settling into rehabilitation routine. Question of expressive dysphasia noted. She is somewhat slow to respond but uncertain if this is chronic or not. I visited with her today. Prior to admission she was able to care for herself reasonably well and could occur own meals and at the laundry etc. (2) Atrial fibrillation with slow ventricular response Current visit: Yes Status: Acute Pacemaker in place. No inflammation noted. Waiting couple of weeks until Xarelto started. (3) S/P cardiac pacemaker procedure Current visit: Yes Status: Acute (4) COPD (chronic obstructive pulmonary disease) Qualifiers: COPD type: emphysema Emphysema type: unspecified Qualified Code(s): J43.9 - Emphysema, unspecified Current visit: Yes Status: Chronic (5) Pulmonary hypertension Current visit: Yes Status: Chronic (6) Altered mental status Qualifiers: Altered mental status type: unspecified Qualified Code(s): R41.82 - Altered mental status, unspecified Current visit: No Status: Acute DVT Prophylaxis: SCD's, Lovenox Resuscitation Status: Full Code - Course Hospital Course: Barry Dowling MD: 11/21/17 10:45 Medically seems stable. No evidence of bleeding nor new neurologic events. Pacemaker site unremarkable - Interventions to Obtain Goals PT Treatment Plan: Balance/Proprioception, Functional Activities, Gait Training , Patient/Family Education, Therapeutic Exercise OT Treatment Plan: ADL (Basic Care), Balance Training, IADL, Pt./Family Education Goals Progress/Modifications: Time spent with patient and on floor reviewing data and documentin min Medical decision-making: Continues to have somewhat slowness to response. Neurologically otherwise she seems stable. Unable to use the left arm at present due to the sling secondary to recent pacemaker placement. Does have some expressive dysphasia as well as speech difficulty. She does have underlying COPD and significant pulmonary hypertension. Prior to dismissal we may need to do an overnight oximetry. I reassessed her medically and feel as though she is stable and safe to pursue therapy. She is just getting started with PT, OT and speech therapy. Please note that the patient's individual plan of care was developed and documented today, requiring review of therapy notes, medical conditions and anticipated functional recovery. This required additional medical decision making with regard to interaction of the patient's medical issues with the anticipated functional recovery. Please see separate document.
--- NOTE | 2017-11-21 10:51 | Fluoroscopy Report ---
Indication:ACUTE CVA WITH OROPHARYNGEAL DYSPHAGIA Procedure:FL barium swallow modified MODIFIED BAR. SWALLOW STUDY: Videofluoroscopy was performed in conjunction with a surgical device sales representative from speech pathology and a separate report and recommendations will be provided. Varying gradations of barium from thin to solid were administered. Tracheal penetration was noted with thin and nectar consistencies. A small amount of delayed aspiration was visualized after administering thin and nectar consistencies. No penetration or aspiration is visualized with the remaining consistencies. Due to the patient's limited mobility and posture, no AP imaging was obtained. Impression: 1. Tracheal penetration with thin and nectar consistencies. 2. Delayed aspiration after the administration of thin and nectar consistencies. Please see the speech pathology report for additional details and recommendations. Fluoroscopy dose: 5.46 mGy (Cumulative air kerma) Humberto Caballero RPA/MADALYN performed this under my direct supervision. .
--- NOTE | 2017-11-21 13:45 | Consult Note ---
Consult Information - Data of Consult Consult date: 11/21/17 Requesting Physician: Barry Dowling MD Primary Care Provider: Júnior Solano MD Family Provider: Júnior Solano MD - Consult Narrative Reason for consult: Medical management History of present illness: Patient is a 67-year-old female who initially presented to the emergency department on 11/17/2017 due to significant confusion and difficulty waking up. She had gone to bed normally the previous evening but on the morning of admission her had difficulty awakening her. In ER, she was noted to have atrial fibrillation with bradycardia. Head CT scan demonstrated a hypodensity within the left internal capsule and caudate nucleus and putamen consistent with a lacunar infarct. She had acute encephalopathic changes. She was admitted for further work-up. She had pacemaker placed on 11/19/[address] Up for symptomatic bradycardia. Carotid Doppler studies failed to reveal evidence of significant stenoses. Echocardiogram demonstrated normal contractility but with severe pulmonary hypertension estimated at around 74 mmHg. Left ventricular systolic function was normal with ejection fraction 70%. There was evidence of mild aortic regurgitation, moderate to severe mitral regurgitation and moderate tricuspid regurgitation. There is also left atrial enlargement. Follow-up CT of the head on November 20 demonstrated the expected interval evolution of left basal ganglia infarct with some slight increase in vasogenic edema but no evidence of hemorrhage. She is currrently on Plavix. Plan is to switch to NOAC or warfarin in approx a week. She has had some difficulty swallowing and is followed by speech therapy as well. Her modified barium swallow showed delayed aspiration with thin and nectar consistencies. She continues to have coarse breath sounds and cough. I saw her not long after her barium swallow and she had audible coarse breath sounds. Patient was nonverbal during by visit. History was taken from records from recent hospitalization and Dr. Dowling's documentation. Past Medical History Patient Stated Medical History Cerebrovascular Accident Yes Cardiac Arrhythmia Yes: BRADYCARDIA Hypertension Yes Chronic Obstructive Pulmonary Yes Disease (COPD) Hx Incontinence Yes Medical History Updates: Prior CVA 2011. Hypertension. Hyperlipidemia. Atrial fibrillation with bradycardia. Pacemaker placed 11/19/17 - Dr. Up Surgical History: Pacemaker 11/19/17 - Dr. Up Family History: Family History Father CAD (coronary artery disease) Mother CAD (coronary artery disease) Maternal Aunt CAD (coronary artery disease) Leukemia Maternal Uncle CAD (coronary artery disease) Leukemia Maternal Grandfather CVA (cerebral vascular accident) Maternal Grandmother CVA (cerebral vascular accident) Brother A-fib Family History Updates: reviewed - Social History Smoking status: Current every day smoker Packs per day: 0.5 Alcohol intake frequency: other (unknown) Current occupational status: retired Current residence: Apartment/Private Home Social history: Patient lives with her in their own home. 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 Review of Systems ROS unobtainable: other (pt nonverbal during visit) Medications Home Medications Medication Instructions Recorded Confirmed Type Simvastatin 20 mg PO HS #0 03/17/13 11/20/17 History Acetaminophen [Tylenol] 1,000 mg PO Q5H PRN 11/20/17 11/20/17 History Nicotine Patch Removal 1 removal TD DAILY PRN 11/20/17 11/20/17 History Ondansetron Inj [Zofran] 4 mg IVP Q6H PRN 11/20/17 11/20/17 History Saline Flush [IV Flush] 10 ml IV PRN PRN 11/20/17 11/20/17 History Allergies Allergy/AdvReac Type Severity Reaction Status Date / Time cortisone Allergy Mild RED Verified 11/19/17 23:22 neomycin Allergy Mild RED Verified 11/19/17 23:22 Sulfa (Sulfonamide Allergy Mild ITCH Verified 11/19/17 23:22 Antibiotics) Exam Vital Signs: Temperature 98.4 F 11/21/17 08:00 Pulse Rate 69 11/21/17 08:00 Respiratory Rate 12 11/21/17 08:00 Blood Pressure 124/85 11/21/17 08:00 Pulse Oximetry 92 11/21/17 08:00 Height/Weight/BMI: Height 1.73 m Weight 107.8 kg Body Mass Index 36.1 - Constitutional Present: no acute distress, well nourished, well developed - Routine HEENT Exam Head: Present: normocephalic, atraumatic - Routine Neck Exam Present: supple. Absent: lymphadenopathy, thyromegaly - Routine Respiratory Exam Absent: wheezes Comments: coarse sounds throughout - audible w/o stethoscope - Routine Cardiovascular Exam Present: RRR, no murmur - Routine Abdominal Exam Present: soft, normoactive bowel sounds. Absent: tenderness, distended - Routine Extremities Exam Present: no edema, normal capillary refill - Routine Skin Exam Present: dry, warm Comments: pacemaker L upper chest - Routine Neurological Exam Present: alert. Absent: normal speech pt did not speak during my visit. She was able to follow instructions such as taking a deep breath. She would shake her head yes and no to questions. - Routine Psychiatric Exam Present: normal affect, cooperative Results - Labs CBC & Chem 7: 11/21/17 04:44 11/21/17 04:44 - Imaging and Cardiology barium swallow Additional comments: Date of Exam: 11/21/17 Indication:ACUTE CVA WITH OROPHARYNGEAL DYSPHAGIA Procedure:FL barium swallow modified MODIFIED BAR. SWALLOW STUDY: Videofluoroscopy was performed in conjunction with a it sales representative from speech pathology and a separate report and recommendations will be provided. Varying gradations of barium from thin to solid were administered. Tracheal penetration was noted with thin and nectar consistencies. A small amount of delayed aspiration was visualized after administering thin and nectar consistencies. No penetration or aspiration is visualized with the remaining consistencies. Due to the patient's limited mobility and posture, no AP imaging was obtained. Impression: 1. Tracheal penetration with thin and nectar consistencies. 2. Delayed aspiration after the administration of thin and nectar consistencies. . Assessment and Plan (1) CVA (cerebral vascular accident) Problem details: Acute ischemic left MCA stroke involving caudate head and lentiform nucleus Current visit: No Status: Acute Assessment and Plan: Assessment Acute ischemic stroke - Acute left MCA territory infarct involving the caudate head and lentiform nucleus. New onset atrial fibrillation with slow ventricular response -s/p placement of permanent pacemaker 11/19/17 (Dr. Up) Hypertension COPD Chronic tobacco use MR/TR/pulmonary hypertension Diastolic dysfunction by echocardiogram. Plan Agree with admission to IRU for continued therapies and continued medical management and monitoring. CXR to evaluate coarse breath sounds. R/o chronic aspiration vs fluid overload. IVF's DC'd yesterday and IV 40mg Lasix given last evening. Continue telemetry and pacemaker implantation precautions. Switch to NOAC vs warfarin 1-2 wks post stroke if pt is stable. Continue nicotine patch. Hospitalist team will continue to follow pt throughout her stay. Thank you for the consult. Care to return to Dr. Solano on DC. DVT Prophylaxis: Lovenox Resuscitation Status: Full Code - Physician Narrative Physician: Oksana Turcios MD Narrative: Date: 11/21/17 Time: 2100 I have independently evaluated and examined this patient. I reviewed the chart, the patient's history, and the BRICK [employer]KER/PA's documented findings as above. We discussed and formulated the assessment and plan as above with additions as below: Lizzy was resting in bed with her at bedside when seen late this afternoon. She responded to a few questions but provided little relief information. She denied pain and denied dyspnea or nausea. She reported that she hadn't worked with therapy (although she had) but acknowledged that she had walked to the dining area earlier. 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 Ongoing speech therapy for swallowing and cognition will be critical in recovery. Blood pressure stable, respiratory status stable. Repeat chest x-ray obtained today reviewed by myself and demonstrates some residual increased interstitial markings/CHF but improved from yesterday. Plans reviewed with Dr. Up and are unchanged from those outlined in yesterday's discharge summary. Hospital Course Summary Disclaimer: The visit summary below is not to be considered part of the above Progress Note. Hospital Course: 11/21/17 - hospitalist consultation Agree with admission to IRU for continued therapies and continued medical management and monitoring. CXR to evaluate coarse breath sounds. R/o chronic aspiration vs fluid overload. IVF's DC'd yesterday and IV 40mg Lasix given last evening. Continue telemetry and pacemaker implantation precautions. Switch to NOAC vs warfarin 1-2 wks post stroke if pt is stable. Continue nicotine patch. Hospitalist team will continue to follow pt throughout her stay. Thank you for the consult. Care to return to Dr. Solano on DC.
--- NOTE | 2017-11-21 14:43 | IRU Plan of Care ---
U Overall Plan of Care - Date Date: 11/21/17 - Patient Impairments (1) CVA (cerebral vascular accident) Qualifiers: CVA mechanism: embolism Precerebral and cerebral artery: middle cerebral artery Laterality of affected vessel: left Qualified Code(s): I63.412 - Cerebral infarction due to embolism of left middle cerebral artery Code(s): I63.9 - Cerebral infarction, unspecified Status: Acute Classification: Present on IRF Admission, IRF Tx That Should Address Diagnosis, Diagnosis Requiring Medical Follow Up (2) Atrial fibrillation with slow ventricular response Code(s): I48.91 - Unspecified atrial fibrillation Status: Acute Classification: Present on IRF Admission, IRF Tx That Should Address Diagnosis, Diagnosis Requiring Medical Follow Up (3) S/P cardiac pacemaker procedure Code(s): Z95.0 - Presence of cardiac pacemaker Status: Acute Classification: Present on IRF Admission, IRF Tx That Should Address Diagnosis, Diagnosis Requiring Medical Follow Up (4) COPD (chronic obstructive pulmonary disease) Qualifiers: COPD type: emphysema Emphysema type: unspecified Qualified Code(s): J43.9 - Emphysema, unspecified Code(s): J44.9 - Chronic obstructive pulmonary disease, unspecified Status: Chronic Classification: Present on IRF Admission, Diagnosis Requiring Medical Follow Up (5) Pulmonary hypertension Code(s): I27.2 - Other secondary pulmonary hypertension Status: Chronic Classification: Present on IRF Admission, Diagnosis Requiring Medical Follow Up - Relevant Changes Relevant Changes: No Reviewed: I have reviewed the patient's information and concur with the finding and results of the pre-admission screen. Certification: I certify the patient for rehabilitation. - Medical Prognosis Medical Prognosis: Good Vital Signs: Last Vital Signs Temp 98.4 F 11/21/17 08:00 Pulse 69 11/21/17 08:00 Resp 12 11/21/17 08:00 BP 124/85 11/21/17 08:00 Pulse Ox 92 11/21/17 08:00 - Anticipated Interventions Anticipated Interventions: The patient requires inpatient IRF care for PT, OT, and/or ST for residuals remaining from strokes resulting in muscular weakness and strength deficits. An individualized overall plan of care has been developed after careful review of the patient's preadmission screening, post admission physician evaluation and assessments of all therapy disciplines and/or other pertinent clinicians involved in treating the patient. This indicates medical necessity and rehabilitation necessity have been established through a thorough review of all available medical information. - Current Functional Status Failed Alternative Therapy: Arrived from Acute Care Patient Requires: The patient requires oversight by rehabilitation physician to manage their rehabilitation treatment plan and multidisciplinary approach to care that can only be provided in an IRF and requires a multidisciplinary approach to care, provided by professional PTs, OTs, STs, rehabilitation nurses, and may require STs, dieticians, and RTS. This is not available in lesser levels of care. Speech-Language Pathology Minutes: 60 Physical Therapy Minutes: 60 Occupational Therapy Minutes: 60 Therapy: The patient is to receive therapy at least [address] Treatment Plan: Swallow Retraining/Exercises, Modified Diet, Communication Retraining ST Treatment Plan Duration: Two Weeks ST Treatment Plan Frequency: Five Times Per Week - Anticipated LOS/Outcomes Anticipated Functional Outcome: It is anticipated the patient will be able to return to her home with modified independent to independent level of functioning for ambulation and ADLs. She may require assistance for IADLs. Anticipated Length of Stay (days): 10 Anticipated DC Destination: Home, Self Care, Home Health Service Home Safety Plan: The patient will be provided with the development of a Home Safety Plan for return to a home or home-like environment and and to ensure safety post discharge. - Plan to Avoid Complications Barriers to Attaining Goals: Weakness, Balance, Endurance Plan to Avoid Complications: The patient cannot receive this care in a lesser intensive setting such as Custodial or Outpatient Therapy due to the patient requiring the following : This patient requires close 24 hour rehabilitation nursing monitoring of her neurologic status in view of recent strokes. She requires monitoring of the pacemaker wound and cardiac function as well. Because of these medical issues and her functional deficits, she requires a multidisciplinary and coordinated approach with PT, OT and speech therapy. She requires medical supervision because of these medical issues as well (atrial fibrillation with slow ventricular response, status post pacemaker).
--- NOTE | 2017-11-21 14:45 | XRay Report ---
INDICATION: cough, coarse BS's PROCEDURE: CHEST 2-VIEWS UPRIGHT (PA & LAT) Encounter: Initial COMPARISON: November 20, 2017 FINDINGS: Left pacemaker is stable in appearance. Interstitial prominence has slightly improved with a mild amount remaining. No new consolidation. No pneumothorax or trace pleural effusions. Heart size and mediastinal contours are stable. Impression: Improved mild pulmonary edema. .
[2017-11-21] MEDS: SIMVASTATIN 20 MG TABLET PO SCH (20:29)
[2017-11-21] MEDS: ENOXAPARIN 40 MG/0.4 ML INJECTION SQ SCH (20:29)
[2017-11-22] MEDS: CARVEDILOL 3.125 MG TABLET PO SCH ×2 (08:58→17:41)
[2017-11-22] MEDS: AMOXICILLIN 500 MG CAPSULE PO SCH ×2 (08:58→20:14)
[2017-11-22] MEDS: CLOPIDOGREL 75 MG TABLET PO SCH (08:58)
[2017-11-22] MEDS: LISINOPRIL 2.5 MG TABLET PO SCH (08:58)
[2017-11-22] MEDS: ENOXAPARIN 40 MG/0.4 ML INJECTION SQ SCH (20:12)
[2017-11-22] MEDS: ACETAMINOPHEN 500 MG TABLET PO PRN (20:13)
[2017-11-22] MEDS: SIMVASTATIN 20 MG TABLET PO SCH (20:14)
[2017-11-23] MEDS: AMOXICILLIN 500 MG CAPSULE PO SCH ×2 (09:04→20:27)
[2017-11-23] MEDS: LISINOPRIL 2.5 MG TABLET PO SCH (09:05)
[2017-11-23] MEDS: CARVEDILOL 3.125 MG TABLET PO SCH ×2 (09:05→18:02)
[2017-11-23] MEDS: CLOPIDOGREL 75 MG TABLET PO SCH (09:05)
--- NOTE | 2017-11-23 17:23 | Progress Note ---
- Date 11/23/17 Subjective: Mrs. Borjas was seen with her at the bedside. She nodded her head yes and no and offered virtually no oral responses although did tell me she was going to go to the dining room soon. Her asked if she could have something to drink because she was thirsty but she did not verbalize that to me. She denied cough, dyspnea, or nausea. When I asked if she had pain she pointed to her pacemaker site. Objective Vital signs: Temperature 97.6 F 11/23/17 15:48 Pulse Rate 61 11/23/17 15:48 Respiratory Rate 14 11/23/17 15:48 Blood Pressure 127/69 11/23/17 15:48 Pulse Oximetry 91 - RA 11/23/17 15:48 NAD, alert, expressive aphasia-avoid spoken responses Facial structure symmetric, EOMI, conjunctiva clear Anterior breath sounds coarse; coughs intermittently Irregular cardiac rhythm Abdomen soft, nontender Pacemaker site clean and dry; patient has her left arm in the sling. Height/Weight/BMI: Height 1.73 m Weight 107.8 kg Body Mass Index 36.1 Results - Labs CBC & Chem 7: 11/21/17 04:44 11/21/17 04:44 Assessment and Plan (1) CVA (cerebral vascular accident) Problem details: Acute ischemic left MCA stroke involving caudate head and lentiform nucleus Current visit: No Status: Acute Assessment and Plan: Assessment Acute ischemic stroke - Acute left MCA territory infarct involving the caudate head and lentiform nucleus. New onset atrial fibrillation with slow ventricular response -s/p placement of permanent pacemaker 11/19/17 (Dr. Up) Hypertension COPD Chronic tobacco use MR/TR/pulmonary hypertension Diastolic dysfunction by echocardiogram. Left otitis media Plan Blood pressure stable, oxygenation stable. Exam suggests episodic aspiration. Nursing reports honey thickened liquids and all oral intake is supervised. Modified barium swallow on 11/21 demonstrated tracheal penetration and delayed aspiration with thin and nectar thick consistencies. Reassess electrolytes in the morning. Furosemide on hold in conjunction with thickened liquids and anticipated poor oral intake. Convert from Plavix to Xarelto at the end of the week. Amoxicillin initiated for otitis media 11/17/17-day 7 currently. DVT Prophylaxis: Lovenox Resuscitation Status: Full Code - Physician Narrative Narrative: Date: 11/23/17 Time: 1713 Hospital Course Summary Disclaimer: The visit summary below is not to be considered part of the above Progress Note. Hospital Course: 11/21/17 - hospitalist consultation Agree with admission to IRU for continued therapies and continued medical management and monitoring. CXR to evaluate coarse breath sounds. R/o chronic aspiration vs fluid overload. IVF's DC'd yesterday and IV 40mg Lasix given last evening. Continue telemetry and pacemaker implantation precautions. Switch to NOAC vs warfarin 1-2 wks post stroke if pt is stable. Continue nicotine patch. Hospitalist team will continue to follow pt throughout her stay. Thank you for the consult. Care to return to Dr. Solano on DC.
[2017-11-23] MEDS: ACETAMINOPHEN 500 MG TABLET PO PRN (18:02)
[2017-11-23] MEDS: ENOXAPARIN 40 MG/0.4 ML INJECTION SQ SCH (20:27)
[2017-11-23] MEDS: SIMVASTATIN 20 MG TABLET PO SCH (20:27)
[2017-11-24] MEDS: ACETAMINOPHEN 325 MG TABLET PO PRN (06:26)
[2017-11-24] MEDS: LISINOPRIL 2.5 MG TABLET PO SCH (08:46)
[2017-11-24] MEDS: SALINE FLUSH 10ml SYRINGE IVF PRN (08:47)
[2017-11-24] MEDS: AMOXICILLIN 500 MG CAPSULE PO SCH ×2 (08:47→20:14)
[2017-11-24] MEDS: CARVEDILOL 3.125 MG TABLET PO SCH ×2 (08:47→17:50)
[2017-11-24] MEDS: CLOPIDOGREL 75 MG TABLET PO SCH (08:47)
--- NOTE | 2017-11-24 11:36 | IRU Progress Note ---
- Subjective/Serverity of Illness Date: 11/24/17 Lizzy was evaluated in her room on inpatient rehabilitation. Her is present with her during the entire interview and examination. She is a bit more verbal today. Reviewing other providers notes, she has been very reticent to speak. Today she did offer some comments. She says that she is doing well with therapy. Her is also pleased with his progress. I asked if she felt like she was ready to take care of herself at home and she states that she needs to get stronger here. She denies any chest pain and denies any shortness of breath. The pacemaker site was inspected. Steri-Strips have been removed. No evidence of inflammation nor infection. I also reviewed the telemetry strips. Appears to be in atrial fibrillation with occasional V paced beats versus PVCs. Pacemaker spikes are difficult to determine. No evidence of failure to sense nor failure to capture however. Brief therapy update: Bathing change from contact-guard assist to standby assist. Upper body dressing is standby assist. Lower body dressing improved from moderate assistance to standby assistance. Ambulatory ability is variable. Reportedly walked 12 feet without assistive device. Bed/chair/wheelchair transfers improved from moderate to minimum assistance. Speech therapy is following patient. Patient requires encouragement and verbal cues to participate. Swallow retraining and swallow precautions are in place. Modified diet in place. Patient denies any cough with swallowing. Update on medical issues were actively monitoring or managing as follows: 1. Acute ischemic stroke likely embolic involving left middle cerebral artery and resulting in multiple functional deficits. Patient is neurologically stable. She will be changed to Xarelto at some point. 2. Hypertension: Blood pressures continued to be very well controlled. We are avoiding hypotension. 3. New diagnosis of atrial fibrillation with slow ventricular response requiring new placement of permanent pacemaker: Again, pacemaker site is healing well. Telemetry appears to indicate underlying atrial fibrillation. 4. COPD with severe pulmonary hypertension at 74 mmHg: Denies cough. Denies dyspnea. 5. Chronic tobacco use: reports smoking between 10/09 - PPD Exam Vital Signs: Temperature 98.4 F 11/24/17 07:49 Pulse Rate 78 11/24/17 08:00 Respiratory Rate 20 11/24/17 07:49 Blood Pressure 116/69 11/24/17 07:49 Pulse Oximetry 95 11/24/17 07:49 Height/Weight/BMI: Height 1.73 m Weight 107.8 kg Body Mass Index 36.1 - Constitutional Present: no acute distress, well nourished, well developed, cooperative - Routine HEENT Exam Head: Present: normocephalic Eye: Present: EOMI ENT: Present: mucous membranes moist. Absent: dentition normal - Routine Neck Exam Present: supple - Routine Respiratory Exam Present: CTA bilaterally. Absent: wheezes - Routine Cardiovascular Exam Present: S1, S2, irregularly irregular. Absent: murmur - Routine Abdominal Exam Present: soft, normoactive bowel sounds, non distended. Absent: tenderness - Routine Extremities Exam Present: no edema. Absent: cyanosis - Routine Skin Exam Present: dry, warm - Routine Neurological Exam Present: alert, oriented X3, CN II-XII intact I am unable to determine neurologic deficits at this time. - Routine Psychiatric Exam Present: normal affect IRU A/P (1) CVA (cerebral vascular accident) Qualifiers: CVA mechanism: embolism Precerebral and cerebral artery: middle cerebral artery Laterality of affected vessel: left Qualified Code(s): I63.412 - Cerebral infarction due to embolism of left middle cerebral artery Problem details: Acute ischemic left MCA stroke involving caudate head and lentiform nucleus Current visit: No Status: Acute Patient will be changed to Xarelto. No new neurologic events are noted. (2) Atrial fibrillation with slow ventricular response Current visit: Yes Status: Acute Pacemaker appears to be functioning normally. Pacemaker site unremarkable. (3) S/P cardiac pacemaker procedure Current visit: Yes Status: Acute (4) COPD (chronic obstructive pulmonary disease) Qualifiers: COPD type: emphysema Emphysema type: unspecified Qualified Code(s): J43.9 - Emphysema, unspecified Current visit: Yes Status: Chronic (5) Pulmonary hypertension Current visit: Yes Status: Chronic DVT Prophylaxis: Lovenox Resuscitation Status: Full Code - Course Hospital Course: Barry Dowling MD: 11/21/17 10:45 Medically seems stable. No evidence of bleeding nor new neurologic events. Pacemaker site unremarkable 11/24/17 11:38 She is cooperative with therapy and making progress. Working with speech therapy as well for swallow retraining and safety. On a modified diet. Pacemaker appears to be functioning normally. - Interventions to Obtain Goals PT Treatment Plan: Balance/Proprioception, Functional Activities, Gait Training , Patient/Family Education, Therapeutic Exercise OT Treatment Plan: ADL (Basic Care), Balance Training, IADL, Pt./Family Education Goals Progress/Modifications: Time spent with patient and on floor reviewing data and documentin min Medical decision-making: I have reassessed her cardiopulmonary status. She is able to tolerate therapy adequately despite her severe pulmonary hypertension and COPD. She is cooperative with therapy. In addition, I have reviewed the telemetry strips indicating underlying atrial fibrillation with occasional paced beats (versus PVCs). No evidence of failure to sense nor failure to capture. Neurologically she seems stable and is cooperating with therapy. We will continue working with her. I also reviewed her blood pressures and labs. With regard to her strokes, she is on Plavix. She is also on Lovenox for DVT prevention. No evidence of bleeding at present and no new neurologic events have been identified.
[2017-11-24] MEDS: SIMVASTATIN 20 MG TABLET PO SCH (20:15)
[2017-11-24] MEDS: ENOXAPARIN 40 MG/0.4 ML INJECTION SQ SCH (20:17)
[2017-11-25] MEDS ORDERED: FLUCONAZOLE 150 MG TABLET PO ONE (02:32)
[2017-11-25] MEDS: CARVEDILOL 3.125 MG TABLET PO SCH ×2 (08:46→17:50)
[2017-11-25] MEDS: AMOXICILLIN 500 MG CAPSULE PO SCH ×2 (08:46→21:29)
[2017-11-25] MEDS: LISINOPRIL 2.5 MG TABLET PO SCH (08:46)
[2017-11-25] MEDS: CLOPIDOGREL 75 MG TABLET PO SCH (08:47)
[2017-11-25] MEDS: ACETAMINOPHEN 500 MG TABLET PO PRN (09:37)
--- NOTE | 2017-11-25 14:48 | Progress Note ---
- Date 11/25/17 Subjective: Lizzy is seen today following request from nursing staff as patient had some bleeding while using the restroom overnight. It was unclear if this was rectal or labial irritation. Nursing staff felt that patient's vaginal region revealed a yeast like presentation. She is noted to have some erythema to her labial minora fold. No obvious hemorrhoids noted. Patient denies having any abdominal pain, chest pain, shortness of breath or other concerns. She is ambulating with assistance of one and doing quite well. Objective Vital signs: Temperature 97.7 F 11/25/17 08:00 Pulse Rate 90 11/25/17 08:00 Respiratory Rate 16 11/25/17 08:00 Blood Pressure 121/75 11/25/17 08:00 Pulse Oximetry 91 11/25/17 08:00 Height/Weight/BMI: Height 1.73 m Weight 107.8 kg Body Mass Index 36.1 - Constitutional Present: no acute distress, well nourished, well developed - Routine HEENT Exam Eye: Present: EOMI ENT: Present: mucous membranes moist, dentition normal - Routine Respiratory Exam Present: CTA bilaterally. Absent: wheezes - Routine Cardiovascular Exam Present: RRR, S1, S2. Absent: murmur - Routine Abdominal Exam Present: soft, normoactive bowel sounds, non distended. Absent: tenderness - Routine Exam External: Present: vulvar erythema Genitals image: 1 - Erythema - Routine Extremities Exam Present: full ROM, pulses intact - Routine Back/Spine/Pelvis Exam Back/Spine: Present: full ROM - Routine Skin Exam Present: intact, dry, warm - Routine Neurological Exam Present: alert, oriented X3, CN II-XII intact, moving all extremities - Routine Lymphatic Exam Lymphatic: Absent: adenopathy - Routine Psychiatric Exam Present: normal affect, cooperative Results - Labs CBC & Chem 7: 11/21/17 04:44 11/24/17 04:54 Assessment and Plan (1) CVA (cerebral vascular accident) Problem details: Acute ischemic left MCA stroke involving caudate head and lentiform nucleus Current visit: No Status: Acute Assessment and Plan: Assessment Acute ischemic stroke - Acute left MCA territory infarct involving the caudate head and lentiform nucleus. New onset atrial fibrillation with slow ventricular response -s/p placement of permanent pacemaker 11/19/17 (Dr. Up) Hypertension COPD Chronic tobacco use MR/TR/pulmonary hypertension Diastolic dysfunction by echocardiogram. Left otitis media Vaginitis- Yeast infection Plan Continue amoxicillin through 11/28. Treatment of otitis media Patient did receive a one-time dose of Diflucan as well as Monistat cream externally for possible vaginitis/yeast infection. Continue on Plavix. Monitor blood pressure, appears to be well controlled on Coreg and lisinopril Continue to encourage work with PT and OT for ongoing strengthening - Physician Narrative Narrative: Date: 11/25/17 Time: 0375 Hospital Course Summary Disclaimer: The visit summary below is not to be considered part of the above Progress Note. Hospital Course: 11/21/17 - hospitalist consultation Agree with admission to IRU for continued therapies and continued medical management and monitoring. CXR to evaluate coarse breath sounds. R/o chronic aspiration vs fluid overload. IVF's DC'd yesterday and IV 40mg Lasix given last evening. Continue telemetry and pacemaker implantation precautions. Switch to NOAC vs warfarin 1-2 wks post stroke if pt is stable. Continue nicotine patch. Hospitalist team will continue to follow pt throughout her stay. Thank you for the consult. Care to return to Dr. Solano on DC.
--- NOTE | 2017-11-25 14:55 | IRU Team Meeting ---
IRU Team Meeting - Nursing Bladder Assistive Devices Utilized:: Absorbent Pad Bladder Management Level of Assist: Moderate Assistance Bladder Frequency of Accidents: No accidents Bowel Assistive Devices Utilized:: Absorbent Pad Bowel Management Level of Assist: Modified Independent Bowel Frequency of Accidents: No accidents Vital Signs: Vital Signs - 24 hr 11/24/17 16:00 11/24/17 20:08 11/25/17 00:00 Temperature 98.9 F 97.9 F Pulse Rate 53 L 86 64 Respiratory Rate 16 20 Blood Pressure 140/92 H 130/78 Pulse Oximetry 92 95 11/25/17 08:00 Temperature 97.7 F Pulse Rate 90 Respiratory Rate 16 Blood Pressure 121/75 Pulse Oximetry 91 Current Medications: Acetaminophen (Tylenol) 650 mg PO QID PRN PRN Reason: Discomfort Last Admin: 11/24/17 06:26 Dose: 650 mg Acetaminophen (Tylenol) 1,000 mg PO Q5H PRN PRN Reason: Discomfort Last Admin: 11/25/17 09:37 Dose: 1,000 mg Amoxicillin () 1,000 mg PO Q12HR [facility] Last Admin: 11/25/17 08:46 Dose: 1,000 mg Carvedilol (Coreg) 3.125 mg PO BIDWM [facility] Last Admin: 11/25/17 08:46 Dose: 3.125 mg Clopidogrel Bisulfate (Plavix) 75 mg PO DAILY [facility] Last Admin: 11/25/17 08:47 Dose: 75 mg Clotrimazole (Gyne-Lotrimin) 1 applic VAGINAL [facility] Enoxaparin Sodium (Lovenox) 40 mg SQ 2100 [facility] Last Admin: 11/24/17 20:17 Dose: 40 mg Lisinopril (Prinivil) 2.5 mg PO DAILY [facility] Last Admin: 11/25/17 08:46 Dose: 2.5 mg Nicotine (Nicoderm) 21 mg TD DAILY PRN Nicotine (Nicotine Patch Removal) 1 removal TD DAILY PRN Simvastatin (Zocor) 20 mg PO HS [facility] Last Admin: 11/24/17 20:15 Dose: 20 mg Sodium Chloride (Iv Flush) 10 - 80 ml IVF PRN PRN PRN Reason: Flushing Last Admin: 11/24/17 08:47 Dose: 10 ml Current Medical Issues: Recent pacemaker placement due to atrial fibrillation with slow ventricular response, CVA Comments: I certify that I personally led the interdisciplinary team meeting and agree with comments, barriers and goals indicated. Team meeting was held in the patient's room with the patient and the following family members present: Patient's and patient's brother Patient's pacemaker appears to be functioning normally. The pacemaker site is noninflamed. She is on a modified diet for aspiration risk with thickened liquids. - Speech Therapy She is seen by speech therapy. 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 She has been more lethargic today. She is on a mechanical soft diet with ground meats and honey thickened liquids. Swallow retraining exercises have been attempted but patient is unable to process well. - Physical Therapy Bed, Chair, Wheelchair Transfer Assist: Stand By Assist/Supervision Ambulation Ability: Stand By Assist/Supervision Ambulation Distance: 450 Stair Climbing Ability: Stand By Assist/Supervision Number of Steps Climbed: 18 Car Transfer Ability: Stand By Assist/Supervision, 1 Person Assist Comments: Patient is standby assist to contact guard assist for ambulation 150 feet. She is demonstrating little affect during therapy. She is able to meet her goal for stair training demonstrate an 18 steps with standby assistance. - Occupational Therapy Eating Ability: Modified Independent Grooming Ability: Independent Bathing Ability: Stand By Assist/Supervision Upper Body Dressing Ability: Stand By Assist/Supervision Lower Body Dressing Ability: Stand By Assist/Supervision Tub Transfer Assist: Patient Refuses Toileting Assist: Moderate Assistance Toilet Transfer Assist: Stand By Assist/Supervision Comments: Patient requires multiple verbal cues for safety and to sequence ADL tasks. Recommend that patient have 24-hour supervision at home. - Goals Physical Therapy Goals: 11/25/17. 1.) Modified Indenpendence with ambulation with use of single point cane. 2.) Transfers with modified independence. Occupational Therapy Goals: OT goals 11/25/17: 1.) Toileting with modified independence. 2.) Pt. to demo simple meal prep with supervision. Speech Therapy Goals: MAINTAIN ATTENTION/LEVEL OF ALERTNESS TO TASK FOR 20 MINUTES - Barriers to Discharge Barriers to Attaining Goals: Balance (addressed with proprioception and balance training), Other (safety concerns: Addressed with verbal cues with activity and education) - Care Plan Anticipated Length of Stay (days): 2 Anticipated DC Destination: Home, Self Care, Home Health Service I have led this team conference and agree with the plan. Interventions/Goals: Patient is doing well functionally with therapy. Continues to require verbal cues and will require 24-hour supervision at home. Family is open to home health. Continue to work with patient another couple of days to work on swallow retraining and aphasia training as well as to provide family training.
--- NOTE | 2017-11-25 15:25 | IRU Progress Note ---
- Subjective/Serverity of Illness Date: 11/25/17 Lizzy was seen on inpatient rehabilitation. Continues to have evidence of receptive a mesial. She will respond at some point. It takes a while for her to progress things. She is being seen by physical therapy, occupational therapy and speech therapy. At this point she is doing well functionally. Efforts at family training will be undertaken over the next 48 hours with anticipated dismissal in 2 days. With regard to the pacemaker, it appears to be functioning normally. Pacemaker site is noninflamed. At present she remains on Plavix plus enoxaparin. At some point she will need to be on a novel agent or warfarin. Reports of bright red blood in the toilet water have been noted. This was during a time of a BMP. Also present during a shower in the bottom of the shower. Hospitalist service has been notified. Exam Vital Signs: Temperature 97.7 F 11/25/17 08:00 Pulse Rate 90 11/25/17 08:00 Respiratory Rate 16 11/25/17 08:00 Blood Pressure 121/75 11/25/17 08:00 Pulse Oximetry 91 11/25/17 08:00 Height/Weight/BMI: Height 1.73 m Weight 107.8 kg Body Mass Index 36.1 - Constitutional Present: well nourished, well developed, cooperative Comments: somewhat slow to respond at times. - Routine HEENT Exam Head: Present: normocephalic Eye: Present: EOMI, PERRL ENT: Present: mucous membranes moist, oropharynx clear - Routine Neck Exam Present: supple - Routine Respiratory Exam Present: CTA bilaterally. Absent: wheezes - Routine Cardiovascular Exam Present: RRR, S1, S2. Absent: murmur, S3, S4 Comments: Rhythm sounds regular at present. Pacemaker site unremarkable. - Routine Abdominal Exam Present: soft, normoactive bowel sounds, non distended. Absent: tenderness - Routine Extremities Exam Present: normal capillary refill - Routine Skin Exam Present: dry, warm - Routine Neurological Exam Present: alert, oriented X3, CN II-XII intact - Routine Psychiatric Exam Present: normal affect IRU A/P (1) CVA (cerebral vascular accident) Qualifiers: CVA mechanism: embolism Precerebral and cerebral artery: middle cerebral artery Laterality of affected vessel: left Qualified Code(s): I63.412 - Cerebral infarction due to embolism of left middle cerebral artery Problem details: Acute ischemic left MCA stroke involving caudate head and lentiform nucleus Current visit: No Status: Acute Patient has evidence of receptive a hazy. She is improving with therapy and is approaching supervision level. Family training will be in progress. (2) Atrial fibrillation with slow ventricular response Current visit: Yes Status: Acute Pacemaker appears to be functioning normally. Pacemaker site is unremarkable. (3) S/P cardiac pacemaker procedure Current visit: Yes Status: Acute (4) COPD (chronic obstructive pulmonary disease) Qualifiers: COPD type: emphysema Emphysema type: unspecified Qualified Code(s): J43.9 - Emphysema, unspecified Current visit: Yes Status: Chronic (5) Pulmonary hypertension Current visit: Yes Status: Chronic DVT Prophylaxis: Lovenox Resuscitation Status: Full Code - Course Hospital Course: Barry Dowling MD: 11/21/17 10:45 Medically seems stable. No evidence of bleeding nor new neurologic events. Pacemaker site unremarkable 11/24/17 11:38 She is cooperative with therapy and making progress. Working with speech therapy as well for swallow retraining and safety. On a modified diet. Pacemaker appears to be functioning normally. 11/25/17 15:26 Patient is approaching functional stability with therapy. Family present for team meeting. We discussed going home in a couple of days with family training to occur in the meantime. At some point she will need to be on Eliquis or similar medication when stable. - Interventions to Obtain Goals PT Treatment Plan: Balance/Proprioception, Functional Activities, Gait Training , Patient/Family Education, Therapeutic Exercise OT Treatment Plan: ADL (Basic Care), Balance Training, IADL, Pt./Family Education Goals Progress/Modifications: Patient has been reported to have some blood in the toilet water. Unclear if this is from urine, rectum or vagina. Hospitalist service has been notified and will check into this. From a cardiovascular standpoint she seems to be stable. She has improved with therapy. Anticipate safe transfer to home in a couple of days with family training and further therapy in the meantime.
[2017-11-25] MEDS: ENOXAPARIN 40 MG/0.4 ML INJECTION SQ SCH (21:29)
[2017-11-25] MEDS: SIMVASTATIN 20 MG TABLET PO SCH (21:30)
[2017-11-25] MEDS: SALINE FLUSH 10ml SYRINGE IVF PRN (21:43)
[2017-11-26] MEDS: CARVEDILOL 3.125 MG TABLET PO SCH ×2 (08:38→17:47)
[2017-11-26] MEDS: AMOXICILLIN 500 MG CAPSULE PO SCH ×2 (08:39→21:49)
[2017-11-26] MEDS: LISINOPRIL 2.5 MG TABLET PO SCH (08:39)
[2017-11-26] MEDS: CLOPIDOGREL 75 MG TABLET PO SCH (08:39)
[2017-11-26] MEDS: SIMVASTATIN 20 MG TABLET PO SCH (21:49)
[2017-11-26] MEDS: ENOXAPARIN 40 MG/0.4 ML INJECTION SQ SCH (21:49)
[2017-11-27 00:49] VITALS: RESP 16
[2017-11-27] MEDS: LISINOPRIL 2.5 MG TABLET PO SCH (09:03)
[2017-11-27] MEDS: AMOXICILLIN 500 MG CAPSULE PO SCH (09:03)
[2017-11-27] MEDS: CLOPIDOGREL 75 MG TABLET PO SCH (09:04)
[2017-11-27] MEDS: CARVEDILOL 3.125 MG TABLET PO SCH (09:04)
[2017-11-27 10:07] VITALS: BP 122/69; PULSE 82; TEMP 98.4; O2SAT 97
[2017-11-27] MEDS: ACETAMINOPHEN 325 MG TABLET PO PRN (10:48)
--- NOTE | 2017-11-27 11:08 | IRU Progress Note ---
- Subjective/Serverity of Illness Date: 11/27/17 Lizzy was interviewed in her room with her present. She states that overall she is doing okay. Continues to be a bit slow to respond as she has been recently. Complains of some low back pain. Denies any chest pain or lightheadedness. The pacemaker site is noninflamed. There is no evidence of any bleeding. Exam Vital Signs: Temperature 98.4 F 11/27/17 08:00 Pulse Rate 82 11/27/17 08:00 Respiratory Rate 16 11/27/17 08:00 Blood Pressure 122/69 11/27/17 08:00 Pulse Oximetry 97 11/27/17 08:00 Height/Weight/BMI: Height 1.73 m Weight 107.8 kg Body Mass Index 36.1 - Constitutional Present: no acute distress, well nourished, well developed, obese - Routine HEENT Exam Head: Present: normocephalic Eye: Present: EOMI ENT: Present: mucous membranes moist - Routine Neck Exam Present: supple - Routine Respiratory Exam Present: CTA bilaterally, wheezes (rare wheeze noted.) - Routine Cardiovascular Exam Present: RRR, S1, S2, murmur - Routine Abdominal Exam Present: soft, normoactive bowel sounds, non distended. Absent: tenderness - Routine Extremities Exam Present: no edema. Absent: cyanosis, clubbing - Routine Skin Exam Present: dry, warm - Routine Neurological Exam Present: alert, oriented X3, CN II-XII intact, altered mental status (somewhat slow to respond as before.) - Routine Psychiatric Exam Present: cooperative, depressed IRU A/P (1) CVA (cerebral vascular accident) Qualifiers: CVA mechanism: embolism Precerebral and cerebral artery: middle cerebral artery Laterality of affected vessel: left Qualified Code(s): I63.412 - Cerebral infarction due to embolism of left middle cerebral artery Problem details: Acute ischemic left MCA stroke involving caudate head and lentiform nucleus Current visit: No Status: Acute Patient is medically stable from a neurologic standpoint. We will check with the hospitalist service with regard to starting Eliquis or similar. (2) Atrial fibrillation with slow ventricular response Current visit: Yes Status: Acute Patient's heart rate is currently controlled with the pacemaker. She will need to be on either Eliquis or similar. (3) S/P cardiac pacemaker procedure Current visit: Yes Status: Acute (4) COPD (chronic obstructive pulmonary disease) Qualifiers: COPD type: emphysema Emphysema type: unspecified Qualified Code(s): J43.9 - Emphysema, unspecified Current visit: Yes Status: Chronic Does have some evidence of wheezes today. However is not overtly dyspneic. (5) Pulmonary hypertension Current visit: Yes Status: Chronic DVT Prophylaxis: Lovenox Resuscitation Status: Full Code - Course Hospital Course: Barry Dowling MD: 11/21/17 10:45 Medically seems stable. No evidence of bleeding nor new neurologic events. Pacemaker site unremarkable 11/24/17 11:38 She is cooperative with therapy and making progress. Working with speech therapy as well for swallow retraining and safety. On a modified diet. Pacemaker appears to be functioning normally. 11/25/17 15:26 Patient is approaching functional stability with therapy. Family present for team meeting. We discussed going home in a couple of days with family training to occur in the meantime. At some point she will need to be on Eliquis or similar medication when stable. 11/27/17 11:08 Patient has done well with therapy. She is medically and functionally stable for dismissal. - Interventions to Obtain Goals PT Treatment Plan: Balance/Proprioception, Functional Activities, Gait Training , Patient/Family Education, Therapeutic Exercise OT Treatment Plan: ADL (Basic Care), Balance Training, IADL, Pt./Family Education
--- NOTE | 2017-11-27 14:45 | Discharge Summary ---
Discharge Information Date of admission: 11/20/17 16:10 Anticipated date of discharge: 11/27/17 Attending Physician: Barry Dowling MD Primary care physician: Júnior Solano MD Consults: 11/20/17 16:39 Physician Consult [CONS] Routine Consulting Provider: Oksana Turcios Reason For Exam: medical management Ordering Provider has Notified Nanny Caregiver: No - Discharge Diagnosis (1) CVA (cerebral vascular accident) Status: Acute (2) Atrial fibrillation with slow ventricular response Status: Acute (3) S/P cardiac pacemaker procedure Status: Acute (4) COPD (chronic obstructive pulmonary disease) Status: Chronic (5) Pulmonary hypertension Status: Chronic 1. Acute cerebrovascular accident in distribution of left middle cerebral artery distribution 2. Atrial fibrillation with slow ventricular response 3. Status post cardiac pacemaker placement 4. Chronic obstructive pulmonary disease 5. Pulmonary hypertension - Laboratory Labs: 11/21/17 04:44 11/24/17 04:54 History of Present Illness HPI: Ms. Borjas initially presented to the emergency department on 11/17/2017 with confusion and difficulty waking up. CT head showed a hypodensity within the left internal capsule and caudate nucleus consistent with a lacunar infarct. Subsequent MRI demonstrated acute left middle cerebral artery distribution infarct involving caudate head and lentiform nucleus. Carotid Doppler studies were unremarkable. She also demonstrated atrial fibrillation with slow ventricular response and Dr. Pablo Up placed a pacemaker on November 19, 2017. Echocardiogram demonstrated normal contractility but severe pulmonary hypertension at around 74 mmHg. She was evaluated by therapies and noted to have multiple functional deficits including cognition, swallowing deficit, as well as requiring physical therapy and occupational therapy for transfers and ambulation. She was felt to be a good candidate for inpatient rehabilitation where she was transferred on 2017. Hospital Course This is a general summary of the patient's hospital course. For more details refer to the complete medical record. The patient was admitted to acute inpatient rehabilitation for a multidisciplinary approach to her recovery from her stroke. She was seen by speech therapy. She was instructed in swallow retraining as well as cognition training. She was felt to have evidence of a transcortical etiology of her receptive a phasic. She was placed on a modified diet to include mechanical soft diet with honey thickened liquids. The patient and her were instructed in that. The patient was seen by occupational therapy. Grooming was initially minimum assistance and ultimately standby assistance. Bathing ability was initially contact-guard level and ultimately standby assistance. Upper body dressing was initially standby assistance and ultimately modified independent functioning. Lower body dressing was initially moderate assistance and ultimately standby assistance. Toileting assist was initially moderate assistance and ultimately standby assistance. Toilet transfer assist was standby assistance upon admission and dismissal. Bed/chair/wheelchair transfers were able to performed with standby assistance at the time of dismissal. She was also seen by physical therapy. Bed/chair/wheelchair transfers were initially moderate assistance and ultimately standby assistance. Car transfers were initially contact-guard assistance and ultimately standby assistance. She was able to initially ambulate with contact-guard assistance with gait belt 155 feet. She was ultimately able to ambulate 380 feet with standby assistance with a straight cane. Care management worked with the patient and her regarding resources available for meals etc. at home. [facility] was consulted to monitor her cardiac status as well as to pursue further physical therapy, occupational therapy and speech therapy. The patient's pacemaker site remained benign. No evidence of inflammation nor infection was seen. The patient will follow-up with Dr. Up as an outpatient as well as her personal physician Dr. Júnior Solano. Patient was not sent home with any pain medications. She was sent home with samples of Eliquis 5 mg tablets to take one half tablet twice daily because of her atrial fibrillation. Hospital course: 11/21/17 - hospitalist consultation Agree with admission to IRU for continued therapies and continued medical management and monitoring. CXR to evaluate coarse breath sounds. R/o chronic aspiration vs fluid overload. IVF's DC'd yesterday and IV 40mg Lasix given last evening. Continue telemetry and pacemaker implantation precautions. Switch to NOAC vs warfarin 1-2 wks post stroke if pt is stable. Continue nicotine patch. Hospitalist team will continue to follow pt throughout her stay. Thank you for the consult. Care to return to Dr. Solano on DC. Discharge Plan - Med Rec/Dispo Referrals/Follow Up: Boubacar Up MD [Physician] - (f/u in the office 2-3 wks ) Júnior Solano MD [Family Provider] - (Dr. Andra Solano on 12/10/17 at 10:30 am for Hosp. follow-up. [address] [place] [address]) [facility] Instructions: Fall Prevention for Older Adults (GEN), Aspiration Precautions (GEN), Pacemaker (DC) Prescriptions: New Acetaminophen [Tylenol] 650 mg PO QID PRN tab PRN Reason: Discomfort Apixaban [Eliquis] 2.5 mg PO BID #60 tab Carvedilol [Coreg] 3.125 mg PO BIDWM #60 tab Lisinopril [Prinivil] 2.5 mg PO DAILY #30 tab Continue Simvastatin 20 mg PO HS #0 Nicotine Patch [Nicoderm] 21 mg TD DAILY PRN patch PRN Reason: nicotine craving Discontinued Albuterol/Ipratropium [Duoneb] 3 ml AEROSOL RTQID each Amoxicillin 1,000 mg PO Q12HR cap Clopidogrel [Plavix] 75 mg PO DAILY tab Nicotine Patch Removal 1 removal TD DAILY PRN PRN Reason: Prn Orders Saline Flush [IV Flush] 10 ml IV PRN PRN PRN Reason: Flushing Ondansetron Inj [Zofran] 4 mg IVP Q6H PRN PRN Reason: Nausea Enoxaparin Sodium [Lovenox] 40 mg SQ DAILY syringe Acetaminophen [Tylenol] 1,000 mg PO Q5H PRN PRN Reason: Pain - Disposition 01 Discharged Home, Self-Care - Dismissal Complete Discharge Instructions are:: Complete
--- NOTE | 2017-11-27 15:06 | Letter to Referring Physician ---
Dear Dr. Corey, This is a brief note to bring you up-to-date on the status of Lizzy Borjas and her stay on the acute inpatient rehabilitation unit at [facility]. As you are likely aware, this patient was admitted to the acute care hospital on 11/17/17 for acute CVA in the left MCA territory. She was also noted to have atrial fibrillation with slow ventricular response and Dr. Up was consulted. Permanent pacemaker was placed on 11/19/2017. The patient was stabilized while on the acute level and admitted to inpatient rehabilitation unit at [facility] on November 20, 2017. While on inpatient rehabilitation, this patient was seen by occupational therapy and physical therapy and improved overall in their functional ability. We also monitored and managed the patient's heart rhythm while on Acute Rehab. Please see a copy of the history and physical examination as well as discharge summary enclosed with this letter for further details. She was sent home with samples of Eliquis 5 mg tablets to take one half tablet ( 2.5 mg) twice daily due to her atrial fibrillation. She will follow-up with Dr. Up as well as yourself. Thank you for allowing us to be involved in this nice patient's care. Please contact me directly should you have any questions regarding their stay on the inpatient rehabilitation unit. Sincerely, Barry Dowling M.D.
== END 2017-11-27 14:26 | disposition home health service (06) | DRG 57 ==
PROVIDERS: ADMIT Internal Medicine; ATTEND Internal Medicine